=== PATIENT | male | born 1960 | race Caucasian/White ===

== ENCOUNTER 2017-07-26 21:17 | Inpatient (IN) | payer OTHER ==
[2017-07-26 21:28] VITALS: BMI 27.4
--- NOTE | 2017-07-26 22:52 | HP ---
COWS - Scale Resting Pulse: 1= [place] 81-100 Sweatin=Flushed/Facial Moisture Restless Observation: 5= Unable to Sit Still Pupil Size: 1= Pupils >than Normal Bone or Joint Aches: 4=Acute Joint/Muscle Pain Runny Nose/ Eye Tearin= Nasal Congestion GI Upset > 30mins: 2= Nausea/Diarrhea Tremor Observation: 2= Slight Tremor Visible Yawning Observation: 0= None Anxiety or Irritability: 4=Extreme Anxiety Goose Flesh Skin: 0=Smooth Skin COWS Score: 22 CIWA Score - CIWA Score Nausea/Vomitin-Mild Nausea/No Vomiting Muscle Tremors: 4-Moderate,w/Arms Extend Anxiety: 4-Mod. Anxious/Guarded Agitation: 4-Moderately Restless Paroxysmal Sweats: 3 Orientation: 1-Uncertain about Date Tacttile Disturbances: 3-Moderate Itch/Numb/Burn Auditory Disturbances: 0-None Visual Disturbances: 0-None Headache: 2-Mild CIWA-Ar Total Score: 22 Admission ROS BHS - HPI Chief Complaint: C/O WITHDRAWAL SX'S. SEEKING DETOX TXMENT FOR ALCOHOL AND OPIOID DEPENDENCE. Allergies/Adverse Reactions: Allergies Allergy/AdvReac Type Severity Reaction Status Date / Time No Known Allergies Allergy Verified 07/26/17 22:07 History of Present Illness: 56 Y.O. MALE WITH POLYSUBTANCE ABUSE HERE FOR DETOX TXMENT. HERE DETOX TXMENT. REFERR[place] HE IS LAO SPEAKING. LABOR MEDIATOR USED FOR INTERVIEW. HE IS A POOR HISTORIAN. 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 DENIES ANY RECENT DETOX TXMENT. Exam Limitations: No Limitations - Ebola screening Have you traveled outside of the country in the last 21 days: No Have you had contact with anyone from an Ebola affected area: No Have you been sick,other than usual withdrawal symptoms: No Do you have a fever: No - Review of Systems Constitutional: Chills, Loss of Appetite, Malaise, Night Sweats, Changes in sleep EENT: reports: Nose Congestion Respiratory: reports: No Symptoms reported Cardiac: reports: No Symptoms Reported GI: reports: Poor Appetite : reports: No Symptoms Reported Musculoskeletal: reports: Joint Pain, Other (AMBULATES WITH CANE) Neuro: reports: Tremors, Other (CHRONIC ULCER TO LLE) Endocrine: reports: Other (HX/O DM) Hematology: reports: No Symptoms Reported Psychiatric: reports: Agitated, Anxious Other Systems: Reviewed and Negative Patient History - Patient Medical History Hx Anemia: No Hx Asthma: No Hx Chronic Obstructive Pulmonary Disease (COPD): No Hx Cancer: No Hx Cardiac Disorders: No Hx Congestive Heart Failure: No Hx Hypertension: No Hx Hypercholesterolemia: No Hx Pacemaker: No HX Cerebrovascular Accident: No Hx Seizures: No Hx Dementia: No Hx Diabetes: Yes (DOES NOT RECALL) Hx Gastrointestinal Disorders: No Hx Liver Disease: No Hx Genitourinary Disorders: No Hx Sexually Transmitted Disorders: No Hx Renal Disease (ESRD): No Hx Thyroid Disease: No Hx Human Immunodeficiency Virus (HIV): No Hx Hepatitis C: Yes (NO TXMENT) Hx Depression: Yes Hx Suicide Attempt: Yes (1 MONTH AGO .tried to shoot himself but failed. PRESENTLY DENIES SI/HI) Hx Schizophrenia: No Other Medical History: LLE DM ULCER - Patient Surgical History Past Surgical History: Yes Hx Neurologic Surgery: No Hx Cataract Extraction: No Hx Cardiac Surgery: No Hx Lung Surgery: No Hx Breast Surgery: No Hx Breast Biopsy: No Hx Abdominal Surgery: Yes (UMBLICAL HERNIA REPAIR) Hx Appendectomy: No Hx Cholecystectomy: No Hx Genitourinary Surgery: No Hx Section: No Hx Orthopedic Surgery: No Anesthesia Reaction: No - PPD History Previous Implant?: Yes Documented Results: Negative w/o proof Implanted On Prior R Admission?: No PPD to be Administered?: Yes - Smoking Cessation Smoking history: Current every day smoker Have you smoked in the past 12 months: Yes Aproximately how many cigarettes per day: 20 Cigars Per Day: 0 Hx Chewing Tobacco Use: No Initiated information on smoking cessation: Yes 'Breaking Loose' booklet given: 07/26/17 - Substance & Tx. History Hx Alcohol Use: Yes Hx Substance Use: Yes Substance Use Type: Alcohol, Cocaine, Marijuana, Opiates Hx Substance Use Treatment: Yes ([facility]) - Substances Abused Heroin Route: Inhalation Frequency: Daily Amount used: 12 BAGS Age of first use: 13 Date of Last Use: 07/26/17 Alcohol Route: Oral Frequency: Daily Amount used: 5 BEERS Age of first use: 13 Date of Last Use: 07/26/17 Cocaine Route: Injection Frequency: Daily Amount used: 12 BAGS Age of first use: 13 Date of Last Use: 12/06/17 Family Disease History - Family Disease History Family History: Unable to Obtain Admission Physical Exam [facility] - Vital Signs Vital Signs: Vital Signs - 24 hr 07/26/17 21:27 Temperature 98.7 F Pulse Rate 98 H Respiratory 18 Rate Blood Pressure 150/93 - Physical General Appearance: Yes: Disheveled, Tremorous, Irritable, Other (`UNKEPT) HEENTM: Yes: EOMI, Normocephalic, MARRY, Pharynx Normal, Other (MISSING TEETH/ POOR DENTITION) Respiratory: Yes: Chest Non-Tender, Lungs Clear, Normal Breath Sounds, No Respiratory Distress, No Accessory Muscle Use Neck: Yes: No masses,lesions,Nodules, Supple, Trachea in good position Breast: Yes: Breast Exam Deferred Cardiology: Yes: Regular Rhythm, Regular Rate, S1, S2 Abdominal: Yes: Normal Bowel Sounds, Non Tender, Soft Genitourinary: Yes: Within Normal Limits Back: Yes: Normal Inspection Musculoskeletal: Yes: full range of Motion, Gait Steady, Back pain Extremities: Yes: Normal Range of Motion, Non-Tender, Tremors, Other (SOLIED) Neurological: Yes: tail end rider II-XII NML intact, Fully Oriented, Alert, Motor Strength 5/5 Integumentary: Yes: Dry, Pitting Edema, Track Shaw (AND OLD ABSCESS TO BOTH ARMS), Other (BLE EDEMA WITH VASCULAR CHANGES DISCOLORATION. LLE WITH DM CHRONIC ULCER GRANULATING TISSUE NOTED) Lymphatic: Yes: Within Normal Limits - Diagnostic (1) Opioid dependence with withdrawal Current Visit: Yes Status: Chronic (2) Alcohol dependence with uncomplicated withdrawal Current Visit: Yes Status: Chronic (3) Cocaine abuse, uncomplicated Current Visit: Yes Status: Chronic (4) Nicotine dependence Current Visit: Yes Status: Chronic Qualifiers: Nicotine product type: cigarettes Substance use status: uncomplicated Qualified Code(s): F17.210 - Nicotine dependence, cigarettes, uncomplicated (5) Diabetes Current Visit: Yes Status: Chronic Qualifiers: Diabetes mellitus type: type 2 (6) Diabetic ulcer of left ankle Current Visit: Yes Status: Chronic Cleared for Admission [facility] - Detox or Rehab [facility] Level of Care: Medically Managed Detox Regimen/Protocol: Methadone/Librium [facility] Breath Alcohol Content Breath Alcohol Content: 0 Urine Drug Screen - Results Drug Screen Negative: No Urine Drug Screen Results: THC-Marijuana, YOUNG-Cocaine, OPI-Opiates
[2017-07-26] MEDS ORDERED: METHADONE HCL 10 MG TABLET (FOR DETOX USE ONLY) PO ONE ×2 (23:00→23:10)
[2017-07-26] MEDS ORDERED: MAG HYDROX/AL HYDROX/SIMETH 30 ML UNIT-DOSE CUP PO PRN (23:10)
[2017-07-26] MEDS ORDERED: MAGNESIUM HYDROX 2400MG/30ML ORAL SUSPENSION 30 ML CUP PO PRN (23:10)
[2017-07-26] MEDS ORDERED: guaiFENesin/D-METHORPHAN HB 10 ML UNIT-DOSE CUPS PO PRN (23:10)
[2017-07-26] MEDS ORDERED: IBUPROFEN 400 MG TABLET (FP) PO PRN (23:10)
[2017-07-26] MEDS ORDERED: MAGNESIUM CITRATE 300 ML BOTTLE PO PRN (23:10)
[2017-07-26] MEDS ORDERED: MENTHOL/PHENOL 1 EACH UD MM PRN (23:10)
[2017-07-26] MEDS ORDERED: LOPERAMIDE HCL 2 MG CAPSULE PO PRN (23:10)
[2017-07-26] MEDS ORDERED: P-EPHED 60MG/TRIPROLIDI 2.5MG TABLET PO PRN (23:10)
[2017-07-26] MEDS ORDERED: NICOTINE POLACRILEX 2 MG GUM BC PRN (23:10)
[2017-07-27] MEDS ORDERED: METHADONE HCL 10 MG TABLET (FOR DETOX USE ONLY) PO ONE ×3 (00:11→23:00)
[2017-07-27] MEDS: chlordiazePOXIDE HCL 25 MG CAPSULE PO PRN (01:04)
[2017-07-27] MEDS: chlordiazePOXIDE HCL 25 MG CAPSULE PO SCH ×5 (01:15→22:44)
[2017-07-27] MEDS: INSULIN SLIDING SCALE (NOVOLOG) 1 VIAL SQ SCH ×4 (08:07→22:00)
--- NOTE | 2017-07-27 09:44 | CONSULT ---
[facility] Psychiatric Consult - Data Date of interview: 07/27/17 Admission source: [facility] Identifying data: Pt is a 56 year old male. Pt. is unemployed and homless. This is patient's first admission to [facility]. Pt. admitted to for detox from heroin, cocaine, alcohol, and marijuana dependence. Substance Abuse History: Heroin- First used: 13 years old Usage: 12 bags daily Last used:07/26/2017. Cocaine- First used: 13 years old. Usage: 12 bags daily Last used: 07/26/2017. Marijuana- First used: 13 years old. Usage- Couple bags last used: 07/26/2017. Alcohol- First used: 13 years old. Usage- 5 beers daily. Last used 07/26/2017 Medical History: Diabetes Psychiatric History: Pt. denies a psychiatric history. Pt. reports one suicide attempt last month in which he attempted to shoot himself but states he was unsuccessful. Pt. currently denies sucidial and homicidal ideation. Physical/Sexual Abuse/Trauma History: Pt. denies. Mental Status Exam - Mental Status Exam Alert and Oriented to: Person Cognitive Function: Fair Patient Appearance: Well Groomed Mood: Expansive Affect: Mood Congruent Patient Behavior: Talkative, Cooperative Speech Pattern: Clear, Pressured Voice Loudness: Normal Thought Process: Goal Oriented Thought Disorder: Not Present Hallucinations: Denies Suicidal Ideation: Denies Homicidal Ideation: Denies Insight/Judgement: Fair Sleep: Poorly Appetite: Fair Muscle strength/Tone: Normal Gait/Station: Other (Pt. is currently using a cane to ambulate on unit.) Psychiatric Findings - Problem List ([place] 1, 2,3) (1) Alcohol dependence with uncomplicated withdrawal Current Visit: Yes Status: Acute (2) Cocaine abuse, uncomplicated Current Visit: Yes Status: Acute (3) Nicotine dependence Current Visit: Yes Status: Chronic Qualifiers: Nicotine product type: cigarettes Substance use status: uncomplicated Qualified Code(s): F17.210 - Nicotine dependence, cigarettes, uncomplicated (4) Opioid dependence with withdrawal Current Visit: Yes Status: Acute - Initial Treatment Plan Initial Treatment Plan: Psychoeducation provided. Detoxification in progress. Psychotrophic medications not required at this time.
[2017-07-27] MEDS ORDERED: METHADONE HCL 10 MG TABLET (FOR DETOX USE ONLY) PO SCH (10:00)
[2017-07-27 10:05] LABS: HEMATOCRIT 28.9 % (35.4-49); HEMOGLOBIN 9.5 GM/dL (11.7-16.9); MCH 29.6 pg (25.7-33.7); MEAN CELL VOLUME 89.8 fl (80-96); MEAN PLT VOLUME 9.6 fl (7.5-11.1); PLATELET COUNT 171 K/MM3 (134-434); RBC 3.22 M/mm3 (4.00-5.60); RDW 16.7 % (11.9-15.9)
[2017-07-27 10:21] LABS: ALBUMIN 2.8 g/dl (3.4-5.0); ANION GAP 9 (8-16); BLOOD UREA NITROGEN 29 mg/dL (7-18); CALCIUM 8.6 mg/dL (8.5-10.1); CHLORIDE 107 mmol/L (98-107); CO2 24 mmol/L (21-32); GLUCOSE,RANDOM 102 mg/dL (74-106); POTASSIUM 3.8 mmol/L (3.5-5.1); SODIUM 140 mmol/L (136-145)
[2017-07-27 10:26] LABS: ALK PHOS 99 U/L (45-117); BILIRUBIN,TOTAL 0.5 mg/dL (0.2-1.0); CREATININE 1.3 mg/dL (0.7-1.3); SGOT/AST 52 U/L (15-37); SGPT/ALT 46 U/L (12-78); TOT PROT 7.8 g/dl (6.4-8.2)
[2017-07-27] MEDS: PRENATAL VITAMINS W/ FOLIC ACID TABLET (FP) PO SCH (10:57)
[2017-07-27] MEDS: NICOTINE 14 MG/24 HOURS TOPICAL PATCH TD SCH (10:58)
--- NOTE | 2017-07-27 11:43 | EKG ---
Test Reason : Blood Pressure : / mmHG Vent. Rate : 087 BPM Atrial Rate : 087 BPM P-R Int : 118 ms QRS Dur : 082 ms QT Int : 362 ms P-R-T Axes : 013 020 022 degrees QTc Int : 435 ms SINUS RHYTHM WITH OCCASIONAL PREMATURE VENTRICULAR COMPLEXES OTHERWISE NORMAL ECG NO PREVIOUS ECGS AVAILABLE Confirmed by JAMILA PEÑA, KELLY ([id number]) on 07/27/2017 11:42:50 AM Referred By: Confirmed By:KELLY MARINO MD
[2017-07-27] MEDS ORDERED: PNEUMOCOCCAL 23 VACCINE 0.5 ML VIAL IM ONE (12:00)
[2017-07-27] MEDS ORDERED: FLU VACCINE QUAD 60 MCG/0.5 ML (MDV 17-18) IM ONE (12:00)
[2017-07-27] MEDS ORDERED: PNEUMOC 13-VAL CONJ-DIP CRM/PF 0.5 ML DISP.SYRIN IM ONE (12:00)
[2017-07-27] MEDS: BACITRACIN 0.9 GM PACKET TP SCH ×2 (14:24→21:51)
[2017-07-27] MEDS: AMMONIUM LACTATE 12% LOTION 225 GM BOTTLE TP SCH ×2 (14:25→21:50)
[2017-07-27] MEDS: SULFAMETHOXAZOLE/TRIMETHOPRIM 800MG/160MG D.S. TABLET PO SCH ×2 (14:25→21:51)
--- NOTE | 2017-07-27 16:13 | PN ---
[facility] CIWA - CIWA Score Nausea/Vomitin-No Nausea/No Vomiting Muscle Tremors: 4-Moderate,w/Arms Extend Anxiety: 5 Agitation: 4-Moderately Restless Paroxysmal Sweats: 2 Orientation: 2-Disoriented Date<2 days Tacttile Disturbances: 2-Mild Itch/Numbness/Burn Auditory Disturbances: 0-None Visual Disturbances: 0-None Headache: 0-None Present CIWA-Ar Total Score: 19 BHS COWS - Scale Resting Pulse: 1= [place] 81-100 Sweatin= Chills/Flushing Restless Observation: 1= Difficult to Sit Still Pupil Size: 0= Normal to Room Light Bone or Joint Aches: 2= Severe Diffuse Aches Runny Nose/ Eye Tearin= None GI Upset > 30mins: 0= None Tremor Observation of Outstretched Hands: 2= Slight Tremor Visible Yawning Observation: 1= 1-2x During Session Anxiety or Irritability: 2=Irritable/Anxious Goose Flesh Skin: 3=Piloerection COWS Score: 13 S 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 (SOAP) Subjective: Anxious, Body Aches, Sweating, Interrupted Sleep. Objective: PT. A & O X 2 (UNCERTAIN ABOUT CURRENT DAY / DATE). PT. OBSERVED AMBULATING ON UNIT. NO ACUTE DISTRESS. PT. DENIES CHEST PAIN. 07/27/17 16:09 Vital Signs Temperature 97.6 F 07/27/17 13:18 Pulse Rate 95 H 07/27/17 13:18 Respiratory Rate 20 07/27/17 13:18 Blood Pressure 139/99 07/27/17 13:18 O2 Sat by Pulse Oximetry (%) Laboratory Tests 07/26/17 07/27/17 07/27/17 23:30 06:25 07:00 WBC 6.0 RBC 3.22 L Hgb 9.5 L Hct 28.9 L MCV 89.8 MCH 29.6 MCHC 33.0 RDW 16.7 H Plt Count 171 MPV 9.6 Sodium Potassium Chloride Carbon Dioxide Anion Gap BUN Creatinine Creat Clearance w eGFR POC Glucometer 149 109 Random Glucose Calcium Total Bilirubin AST ALT Alkaline Phosphatase Total Protein Albumin RPR Titer HIV 1&2 Antibody Screen HIV P24 Antigen 07/27/17 07/27/17 07/27/17 07:00 07:00 09:00 WBC RBC Hgb Hct MCV MCH MCHC RDW Plt Count MPV Sodium 140 Potassium 3.8 Chloride 107 Carbon Dioxide 24 Anion Gap 9 BUN 29 H Creatinine 1.3 Creat Clearance w eGFR 57.53 POC Glucometer Random Glucose 102 Calcium 8.6 Total Bilirubin 0.5 AST 52 H ALT 46 Alkaline Phosphatase 99 Total Protein 7.8 Albumin 2.8 L RPR Titer Nonreactive HIV 1&2 Antibody Screen Negative HIV P24 Antigen Negative 07/27/17 11:43 WBC RBC Hgb Hct MCV MCH MCHC RDW Plt Count MPV Sodium Potassium Chloride Carbon Dioxide Anion Gap BUN Creatinine Creat Clearance w eGFR POC Glucometer 155 Random Glucose Calcium Total Bilirubin AST ALT Alkaline Phosphatase Total Protein Albumin RPR Titer HIV 1&2 Antibody Screen HIV P24 Antigen LABS NOTED. Assessment: 07/27/17 16:13 WITHDRAWAL SYMPTOMS. Plan: CONTINUE DETOX. BMP ON 07/29/2017 FOR ABNORMAL ADMISSION RENAL LAB VALUES. D/C MAGNESIUM-CONTAINING MEDS. AND IBUPROFEN. AMLODIPINE, 5 MG PO DAILY FOR ELEVATED BP. BACTRIM DS, PO BID FOR ABSCESSES ON ARMS AND FOR WOUND ON LEG. SALINE RINSE FOLLOWED BY APPLICATION OF BACITRACIN BID TO ULCER ON LEFT LOWER LEG.
[2017-07-27 16:52] LABS: URINE APPEARANCE CLEAR; URINE BILIRUBIN NEGATIVE (NEGATIVE); URINE BLOOD NEGATIVE (NEGATIVE); URINE COLOR YELLOW; URINE GLUCOSE (UA) NEGATIVE (NEGATIVE); URINE KETONE NEGATIVE (NEGATIVE); URINE LEUK ESTERASE NEGATIVE (NEGATIVE); URINE NITRITE NEGATIVE (NEGATIVE); URINE PROTEIN NEGATIVE (NEGATIVE); URINE UROBILINOGEN NEGATIVE mg/dL (0.2-1.0)
[2017-07-27] MEDS: amLODIPine BESYLATE 5 MG TABLET (FP) PO SCH (17:25)
[2017-07-27] MEDS: THIAMINE HCL 100 MG TABLET (FP) PO SCH (21:49)
[2017-07-27] MEDS: CYCLOBENZAPRINE HCL 5 MG TABLET PO PRN (21:50)
[2017-07-27] MEDS: NAPROXEN 500 MG TABLET (FP) PO SCH (22:43)
[2017-07-28] MEDS: chlordiazePOXIDE HCL 25 MG CAPSULE PO PRN (01:08)
[2017-07-28] MEDS: chlordiazePOXIDE HCL 25 MG CAPSULE PO SCH ×3 (05:14→17:32)
[2017-07-28] MEDS: INSULIN SLIDING SCALE (NOVOLOG) 1 VIAL SQ SCH ×4 (07:19→22:18)
[2017-07-28] MEDS ORDERED: METHADONE HCL 5 MG TABLET (FOR DETOX USE ONLY) PO SCH (10:00)
[2017-07-28] MEDS ORDERED: METHADONE HCL 10 MG TABLET (FOR DETOX USE ONLY) PO ONE (10:00)
[2017-07-28] MEDS: SULFAMETHOXAZOLE/TRIMETHOPRIM 800MG/160MG D.S. TABLET PO SCH ×2 (10:22→22:17)
[2017-07-28] MEDS: NAPROXEN 500 MG TABLET (FP) PO SCH ×2 (10:22→22:17)
[2017-07-28] MEDS: amLODIPine BESYLATE 5 MG TABLET (FP) PO SCH (10:22)
[2017-07-28] MEDS: BACITRACIN 0.9 GM PACKET TP SCH ×2 (10:22→22:17)
[2017-07-28] MEDS: AMMONIUM LACTATE 12% LOTION 225 GM BOTTLE TP SCH ×2 (10:23→22:00)
[2017-07-28] MEDS: PRENATAL VITAMINS W/ FOLIC ACID TABLET (FP) PO SCH (11:27)
[2017-07-28] MEDS: NICOTINE 14 MG/24 HOURS TOPICAL PATCH TD SCH (11:27)
--- NOTE | 2017-07-28 15:42 | PN ---
[facility] CIWA - CIWA Score Nausea/Vomitin-No Nausea/No Vomiting Muscle Tremors: 4-Moderate,w/Arms Extend Anxiety: 4-Mod. Anxious/Guarded Agitation: 3 Paroxysmal Sweats: 3 Orientation: 2-Disoriented Date<2 days Tacttile Disturbances: 1-Very Mild Itch/Numbness Auditory Disturbances: 0-None Visual Disturbances: 0-None Headache: 0-None Present CIWA-Ar Total Score: 17 BHS COWS - Scale Resting Pulse: 2= [place] 101-120 Sweatin= Chills/Flushing Restless Observation: 1= Difficult to Sit Still Pupil Size: 0= Normal to Room Light Bone or Joint Aches: 2= Severe Diffuse Aches Runny Nose/ Eye Tearin= None GI Upset > 30mins: 0= None Tremor Observation of Outstretched Hands: 2= Slight Tremor Visible Yawning Observation: 1= 1-2x During Session Anxiety or Irritability: 2=Irritable/Anxious Goose Flesh Skin: 3=Piloerection COWS Score: 14 [facility] 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 (SOAP) Subjective: Tremors, Interrupted Sleep, Body Aches, Hot / Cold Sensations. Objective: PT. A & O X 2 (UNCERTAIN ABOUT CURRENT DAY/ DATE). PT. OBSERVED AMBULATING ON UNIT WITH ASSISTANCE OF A CANE. NO ACUTE DISTRESS. 07/28/17 15:38 Vital Signs Temperature 97.4 F L 07/28/17 13:38 Pulse Rate 101 H 07/28/17 13:38 Respiratory Rate 20 07/28/17 13:38 Blood Pressure 143/91 07/28/17 13:38 O2 Sat by Pulse Oximetry (%) Vital Signs Temperature 97.4 F L 07/28/17 13:38 Pulse Rate 101 H 07/28/17 13:38 Respiratory Rate 20 07/28/17 13:38 Blood Pressure 143/91 07/28/17 13:38 O2 Sat by Pulse Oximetry (%) Laboratory Tests 07/26/17 07/26/17 07/27/17 16:35 23:30 06:25 WBC RBC Hgb Hct MCV MCH MCHC RDW Plt Count MPV Sodium Potassium Chloride Carbon Dioxide Anion Gap BUN Creatinine Creat Clearance w eGFR POC Glucometer 149 109 Random Glucose Calcium Total Bilirubin AST ALT Alkaline Phosphatase Total Protein Albumin Urine Color Yellow Urine Appearance Clear Urine pH 5.0 Ur Specific [place] 1.021 Urine Protein Negative Urine Glucose (UA) Negative Urine Ketones Negative Urine Blood Negative Urine Nitrite Negative Urine Bilirubin Negative Urine Urobilinogen Negative Ur Leukocyte Esterase Negative RPR Titer HIV 1&2 Antibody Screen HIV P24 Antigen 07/27/17 07/27/17 07/27/17 07:00 07:00 07:00 WBC 6.0 RBC 3.22 L Hgb 9.5 L Hct 28.9 L MCV 89.8 MCH 29.6 MCHC 33.0 RDW 16.7 H Plt Count 171 MPV 9.6 Sodium 140 Potassium 3.8 Chloride 107 Carbon Dioxide 24 Anion Gap 9 BUN 29 H Creatinine 1.3 Creat Clearance w eGFR 57.53 POC Glucometer Random Glucose 102 Calcium 8.6 Total Bilirubin 0.5 AST 52 H ALT 46 Alkaline Phosphatase 99 Total Protein 7.8 Albumin 2.8 L Urine Color Urine Appearance Urine pH Ur Specific [place] Urine Protein Urine Glucose (UA) Urine Ketones Urine Blood Urine Nitrite Urine Bilirubin Urine Urobilinogen Ur Leukocyte Esterase RPR Titer Nonreactive HIV 1&2 Antibody Screen HIV P24 Antigen 07/27/17 07/27/17 07/27/17 09:00 11:43 16:23 WBC RBC Hgb Hct MCV MCH MCHC RDW Plt Count MPV Sodium Potassium Chloride Carbon Dioxide Anion Gap BUN Creatinine Creat Clearance w eGFR POC Glucometer 155 101 Random Glucose Calcium Total Bilirubin AST ALT Alkaline Phosphatase Total Protein Albumin Urine Color Urine Appearance Urine pH Ur Specific [place] Urine Protein Urine Glucose (UA) Urine Ketones Urine Blood Urine Nitrite Urine Bilirubin Urine Urobilinogen Ur Leukocyte Esterase RPR Titer HIV 1&2 Antibody Screen Negative HIV P24 Antigen Negative 07/27/17 07/28/17 07/28/17 20:43 05:14 12:00 WBC RBC Hgb Hct MCV MCH MCHC RDW Plt Count MPV Sodium Potassium Chloride Carbon Dioxide Anion Gap BUN Creatinine Creat Clearance w eGFR POC Glucometer 155 108 144 Random Glucose Calcium Total Bilirubin AST ALT Alkaline Phosphatase Total Protein Albumin Urine Color Urine Appearance Urine pH Ur Specific [place] Urine Protein Urine Glucose (UA) Urine Ketones Urine Blood Urine Nitrite Urine Bilirubin Urine Urobilinogen Ur Leukocyte Esterase RPR Titer HIV 1&2 Antibody Screen HIV P24 Antigen LABS NOTED. Assessment: 07/28/17 15:39 WITHDRAWAL SYMPTOMS. Plan: CONTINUE DETOX. INCREASE AMLODIPINE DAILY DOSE TO 10 MG PO DAILY.
[2017-07-28] MEDS ORDERED: amLODIPine BESYLATE 5 MG TABLET (FP) PO ONE (17:00)
[2017-07-28] MEDS: ACETAMINOPHEN 325 MG TABLET (FP) PO PRN (18:18)
[2017-07-28] MEDS: TOLNAFTATE 1% CREAM 15 GM TUBE TP SCH (22:17)
[2017-07-28] MEDS: CYCLOBENZAPRINE HCL 5 MG TABLET PO PRN (22:17)
[2017-07-28] MEDS: chlordiazePOXIDE 5 MG CAPSULE PO SCH (22:17)
[2017-07-28] MEDS: THIAMINE HCL 100 MG TABLET (FP) PO SCH (22:18)
[2017-07-29] MEDS: ACETAMINOPHEN 325 MG TABLET (FP) PO PRN (00:55)
[2017-07-29] MEDS: chlordiazePOXIDE HCL 25 MG CAPSULE PO PRN (00:56)
[2017-07-29] MEDS: chlordiazePOXIDE 5 MG CAPSULE PO SCH ×3 (06:01→17:53)
[2017-07-29] MEDS: INSULIN SLIDING SCALE (NOVOLOG) 1 VIAL SQ SCH ×4 (06:19→22:27)
--- NOTE | 2017-07-29 09:50 | PN ---
BHS 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 (SOAP) Subjective: Sweating, Tremors, Anxious. Objective: PT. A & O X 1 (UNCERTAIN ABOUT CURRENT DAY / DATE AND ABOUT CURRENT LOCATION). PT. OBSERVED AMBULATING ON UNIT. NO ACUTE DISTRESS. 07/29/17 09:46 Vital Signs Temperature 97 F L 07/29/17 06:22 Pulse Rate 155 H 07/29/17 06:22 Respiratory Rate 16 07/29/17 06:22 Blood Pressure 99/63 07/29/17 06:22 O2 Sat by Pulse Oximetry (%) Laboratory Tests 07/26/17 07/26/17 07/27/17 16:35 23:30 06:25 WBC RBC Hgb Hct MCV MCH MCHC RDW Plt Count MPV Sodium Potassium Chloride Carbon Dioxide Anion Gap BUN Creatinine Creat Clearance w eGFR POC Glucometer 149 109 Random Glucose Calcium Total Bilirubin AST ALT Alkaline Phosphatase Total Protein Albumin Urine Color Yellow Urine Appearance Clear Urine pH 5.[address] [place] 1.021 Urine Protein Negative Urine Glucose (UA) Negative Urine Ketones Negative Urine Blood Negative Urine Nitrite Negative Urine Bilirubin Negative Urine Urobilinogen Negative Ur Leukocyte Esterase Negative RPR Titer HIV 1&2 Antibody Screen HIV P24 Antigen 07/27/17 07/27/17 07/27/17 07:00 07:00 07:00 WBC 6.0 RBC 3.22 L Hgb 9.5 L Hct 28.9 L MCV 89.8 MCH 29.6 MCHC 33.0 RDW 16.7 H Plt Count 171 MPV 9.6 Sodium 140 Potassium 3.8 Chloride 107 Carbon Dioxide 24 Anion Gap 9 BUN 29 H Creatinine 1.3 Creat Clearance w eGFR 57.53 POC Glucometer Random Glucose 102 Calcium 8.6 Total Bilirubin 0.5 AST 52 H ALT 46 Alkaline Phosphatase 99 Total Protein 7.8 Albumin 2.8 L Urine Color Urine Appearance Urine pH Ur Specific [address] [place] Urine Protein Urine Glucose (UA) Urine Ketones Urine Blood Urine Nitrite Urine Bilirubin Urine Urobilinogen Ur Leukocyte Esterase RPR Titer Nonreactive HIV 1&2 Antibody Screen HIV P24 Antigen 07/27/17 07/27/17 07/27/17 09:00 11:43 16:23 WBC RBC Hgb Hct MCV MCH MCHC RDW Plt Count MPV Sodium Potassium Chloride Carbon Dioxide Anion Gap BUN Creatinine Creat Clearance w eGFR POC Glucometer 155 101 Random Glucose Calcium Total Bilirubin AST ALT Alkaline Phosphatase Total Protein Albumin Urine Color Urine Appearance Urine pH Ur Specific [address] [place] Urine Protein Urine Glucose (UA) Urine Ketones Urine Blood Urine Nitrite Urine Bilirubin Urine Urobilinogen Ur Leukocyte Esterase RPR Titer HIV 1&2 Antibody Screen Negative HIV P24 Antigen Negative 07/27/17 07/28/17 07/28/17 20:43 05:14 12:00 WBC RBC Hgb Hct MCV MCH MCHC RDW Plt Count MPV Sodium Potassium Chloride Carbon Dioxide Anion Gap BUN Creatinine Creat Clearance w eGFR POC Glucometer 155 108 144 Random Glucose Calcium Total Bilirubin AST ALT Alkaline Phosphatase Total Protein Albumin Urine Color Urine Appearance Urine pH Ur Specific [address] [place] Urine Protein Urine Glucose (UA) Urine Ketones Urine Blood Urine Nitrite Urine Bilirubin Urine Urobilinogen Ur Leukocyte Esterase RPR Titer HIV 1&2 Antibody Screen HIV P24 Antigen 07/28/17 07/29/17 16:23 06:06 WBC RBC Hgb Hct MCV MCH MCHC RDW Plt Count MPV Sodium Potassium Chloride Carbon Dioxide Anion Gap BUN Creatinine Creat Clearance w eGFR POC Glucometer 97 97 Random Glucose Calcium Total Bilirubin AST ALT Alkaline Phosphatase Total Protein Albumin Urine Color Urine Appearance Urine pH Ur Specific [address] [place] Urine Protein Urine Glucose (UA) Urine Ketones Urine Blood Urine Nitrite Urine Bilirubin Urine Urobilinogen Ur Leukocyte Esterase RPR Titer HIV 1&2 Antibody Screen HIV P24 Antigen LABS NOTED. RESULTS OF BMP PENDING. 07/29/17 09:49 Assessment: 07/29/17 09:47 WITHDRAWAL SYMPTOMS. ANEMIA. 07/29/17 09:49 Plan: CONTINUE DETOX.
[2017-07-29 09:54] LABS: ANION GAP 9 (8-16); BLOOD UREA NITROGEN 30 mg/dL (7-18); CHLORIDE 107 mmol/L (98-107); CO2 23 mmol/L (21-32); GLUCOSE,RANDOM 83 mg/dL (74-106); POTASSIUM 4.5 mmol/L (3.5-5.1); SODIUM 139 mmol/L (136-145)
[2017-07-29 09:56] LABS: CREATININE 1.3 mg/dL (0.7-1.3)
[2017-07-29] MEDS ORDERED: METHADONE HCL 5 MG TABLET (FOR DETOX USE ONLY) PO ONE (10:00)
[2017-07-29] MEDS: PRENATAL VITAMINS W/ FOLIC ACID TABLET (FP) PO SCH (10:04)
[2017-07-29] MEDS: NAPROXEN 500 MG TABLET (FP) PO SCH ×2 (10:04→22:28)
[2017-07-29] MEDS: SULFAMETHOXAZOLE/TRIMETHOPRIM 800MG/160MG D.S. TABLET PO SCH ×2 (10:04→22:28)
[2017-07-29] MEDS: BACITRACIN 0.9 GM PACKET TP SCH ×2 (10:07→22:26)
[2017-07-29] MEDS: amLODIPine BESYLATE 10 MG TABLET (FP) PO SCH (10:07)
[2017-07-29] MEDS: NICOTINE 14 MG/24 HOURS TOPICAL PATCH TD SCH (10:07)
[2017-07-29] MEDS: AMMONIUM LACTATE 12% LOTION 225 GM BOTTLE TP SCH ×2 (10:07→22:28)
[2017-07-29] MEDS: TOLNAFTATE 1% CREAM 15 GM TUBE TP SCH ×2 (10:07→22:26)
--- NOTE | 2017-07-29 10:11 | PN ---
[facility] 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 Note: Patient just [facility] and reported that he fell in room during the night (around 2:00 - 3:00 AM). According to patient, he did not call out for help or go to [facility] to request help. He was able to get himself back into bed and then went back to sleep. At this time, patient indicates that he he the left side of his head (posterior to left ear) on the side of his bed. Patient denies LOC after fall. Patient denies injury to any other aspect of his body. No swelling, erythema, or unusual discharge noted on patient's head. Pt. A & O X 1 (Uncertain about Day / Date and about Current Location; NOTE: Patient has been uncertain about current Day /daTe and about current location since arriving on unit a few days ago). Patient observed ambulating on unit unassisted. Patient does not appear confused of lethargic. [facility] Fall Protocol # [address] implemented[address] Report [address] Nina Celaya at [facility] ER. Patient to be taken via ambulance to [facility] ER for further evaluation and for CT Scan of Head. Nadja Harrison NP
[2017-07-29] MEDS: THIAMINE HCL 100 MG TABLET (FP) PO SCH (22:26)
[2017-07-29] MEDS: chlordiazePOXIDE HCL 10 MG CAPSULE PO SCH (22:27)
[2017-07-30] MEDS: ACETAMINOPHEN 325 MG TABLET (FP) PO PRN ×2 (03:22→11:01)
[2017-07-30] MEDS: CYCLOBENZAPRINE HCL 5 MG TABLET PO PRN ×2 (03:22→20:02)
[2017-07-30] MEDS: chlordiazePOXIDE HCL 10 MG CAPSULE PO SCH ×3 (06:07→17:24)
[2017-07-30] MEDS: INSULIN SLIDING SCALE (NOVOLOG) 1 VIAL SQ SCH ×4 (06:57→22:07)
[2017-07-30] MEDS ORDERED: METHADONE HCL 5 MG TABLET (FOR DETOX USE ONLY) PO ONE (10:00)
[2017-07-30] MEDS ORDERED: METHADONE HCL 10 MG TABLET (FOR DETOX USE ONLY) PO SCH (10:00)
[2017-07-30] MEDS: NAPROXEN 500 MG TABLET (FP) PO SCH ×2 (10:19→22:04)
[2017-07-30] MEDS: amLODIPine BESYLATE 10 MG TABLET (FP) PO SCH (10:19)
[2017-07-30] MEDS: SULFAMETHOXAZOLE/TRIMETHOPRIM 800MG/160MG D.S. TABLET PO SCH ×2 (10:19→22:05)
[2017-07-30] MEDS: BACITRACIN 0.9 GM PACKET TP SCH ×2 (10:19→22:05)
[2017-07-30] MEDS: NICOTINE 14 MG/24 HOURS TOPICAL PATCH TD SCH (10:20)
[2017-07-30] MEDS: AMMONIUM LACTATE 12% LOTION 225 GM BOTTLE TP SCH ×2 (10:20→22:04)
[2017-07-30] MEDS: TOLNAFTATE 1% CREAM 15 GM TUBE TP SCH ×2 (11:03→22:04)
[2017-07-30] MEDS: PRENATAL VITAMINS W/ FOLIC ACID TABLET (FP) PO SCH (11:03)
--- NOTE | 2017-07-30 12:27 | PN ---
Psychiatric 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 Vital Signs: Vital Signs Period Temp Pulse Resp BP Sys/Jett Pulse Ox Last 24 Hr 96.5 F-97.7 F 74-83 18-20 99-123/60-85 Date of Session: 07/30/17 Chief Complaint:: "I'm hearing voices and wants to hurt myself" HPI: Patient is a 56 years old homeless male admitted to [facility] on 07/26/17 for detox for alcohol, opoid and cocane Current Medications: Active Medications Generic Name Dose Route Start Last Admin Trade Name Freq PRN Reason Stop Dose Admin Acetaminophen 650 mg 07/26/17 23:10 07/30/17 11:01 Tylenol - PO 650 mg Q4H PRN Administration FEVER OR PAIN Amlodipine Besylate 10 mg 07/29/17 10:00 07/30/17 10:19 Norvasc - PO 10 mg DAILY FRANCINE Administration Bacitracin 0.9 gm 07/27/17 12:45 07/30/17 10:19 Bacitracin - TP 0.9 gm BID FRANCINE Administration Chlordiazepoxide HCl 10 mg 07/29/17 23:00 07/30/17 10:19 Librium - PO 07/30/17 17:01 10 mg [id number] FRANCINE Administration Cyclobenzaprine HCl 5 mg 07/27/17 21:02 07/30/17 03:22 Cyclobenzaprine Hcl PO 5 mg TID PRN Administration leg pain Eucalyptus/Menthol/Phenol/Sorbitol 1 each 07/26/17 23:10 Cepastat Lozenge - MM Q4H PRN SORE THROAT Guaifenesin 10 ml 07/26/17 23:10 Robitussin Dm - PO Q6H PRN COUGH Insulin Aspart 1 vial 07/27/17 07:00 07/30/17 11:02 Novolog Vial Sliding Scale - SQ Not Given ACHS FRANCINE Protocol Lactic Acid 1 applic 07/27/17 12:00 07/30/17 10:20 Lac-Hydrin 12 TP 1 applic BID FRANCINE Administration Loperamide HCl 4 mg 07/26/17 23:10 Imodium - PO Q6H PRN DIARRHEA Methadone HCl 5 mg 08/01/17 06:00 Dolophine - PO 08/01/17 06:01 ONCE@0600 ONE Methadone HCl 10 mg 07/31/17 10:00 Dolophine - PO 07/31/17 10:01 ONCE ONE Naproxen 500 mg 07/27/17 22:00 07/30/17 10:19 Naprosyn - PO 500 mg BID FRANCINE Administration Nicotine 14 mg 07/27/17 10:00 07/30/17 10:20 Nicoderm Patch - TD Not Given DAILY FRANCINE Nicotine Polacrilex 2 mg 07/26/17 23:10 Nicorette Gum - BC Q2H PRN NICOTINE REPLACEMENT RX Multivit/Folic Acid/Iron 1 tab 07/27/17 10:00 07/30/17 11:03 Vitamins (Sjr) - PO 1 tab DAILY FRANCINE Administration Pseudoephedrine/Triprolidine 1 combo 07/26/17 23:10 Actifed - PO TID PRN NASAL CONGESTION Thiamine HCl 100 mg 07/27/17 22:00 07/29/17 22:26 Vitamin B1 - PO 100 mg HS FRANCINE Administration Tolnaftate 1 applic 07/28/17 22:00 07/30/17 11:03 Tinactin 1% Cream - TP 1 applic BID FRANCINE Administration Trimethoprim/Sulfamethoxazole 1 each 07/27/17 12:00 07/30/17 10:19 Bactrim Ds - PO 08/06/17 11:59 1 each BID FRANCINE Administration Medication(s) Change(s): Haldol 2 mg po stat then 2 mg po Q 6hrs prn for psychosis or agitation Provider note:: Requested to see patient by counselor to evaluate for suicidal ideations. He was seen by life sciences manager on 07/27/17 and reported that he attempted to shoot himslf last month but was unsuccesful. Patient seen in the office, he is yoruba speaking only, a [employer] acted as interpretor. Reports that he started hearing voices last night while working on a drawing. He said that the voices told to put the drawing aside and kill himself. Then he said he went to bed. He said he woke up in the middle to go to the bathroon. He said while in the bathroon, the voice told him to break the mirror and slashed his neck with a piece of glass. He told typewriter mechanic that he does hear the voice or feels suicidal at the present but felt that way earlier Mental Status Exam - Mental Status Exam Alert and Oriented to: Time (not oriented to time), Place (Not oriented to place ), Person Cognitive Function: Fair Patient Appearance: Well Groomed Mood: Depressed Affect: Constricted Patient Behavior: Cooperative Speech Pattern: Clear Voice Loudness: Normal Hallucinations: Denies (reports hearing voices last night telling him to kill himself, to brake the mirror and cut self with the glass) Suicidal Ideation: Current Homicidal Ideation: Denies Insight/Judgement: Poor Sleep: Poorly Appetite: Good Muscle strength/Tone: Normal Gait/Station: Other (Ambulated with a cane) Psychiatric Treatment Plan - Problem List (1) Psychotic disorder Current Visit: Yes (2) Malingerer Current Visit: Yes (3) Malingering Current Visit: Yes (4) Alcohol dependence with uncomplicated withdrawal Current Visit: Yes (5) Opioid dependence with withdrawal Current Visit: Yes (6) Diabetes Current Visit: Yes Qualifiers: Diabetes mellitus type: type 2 (7) Diabetic ulcer of left ankle Current Visit: Yes Initial treatment plan: 1) Place patient on 1:1for safety. 2) Hadol 2 mg + Cogentin 0.5 mg po stat then Haldol 2 mg + Cogentin 0.5 mg po Q 6hrs prn for psychosis.agitation. 3) reevaluate in the morning
[2017-07-30] MEDS ORDERED: HALOPERIDOL 2 MG TABLET PO ONE (12:55)
[2017-07-30] MEDS ORDERED: BENZTROPINE MESYLATE 0.5 MG TABLET (FP) PO ONE (12:55)
[2017-07-30] MEDS: HALOPERIDOL 1 MG TABLET (FP) PO PRN ×2 (15:14→22:05)
[2017-07-30] MEDS: BENZTROPINE MESYLATE 0.5 MG TABLET (FP) PO PRN ×2 (15:16→22:05)
--- NOTE | 2017-07-30 16:24 | PN ---
S 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 (SOAP) Subjective: Tremor, chills, interrupted sleep; noted with left foot cellulitis. As per staff nurse, patient seen by psychiatrist today and placed on one to one observation due to reported CAHKS. Objective: 07/30/17 16:19 Last Vital Signs Temp Pulse Resp BP Pulse Ox 96.7 F L 78 18 123/85 07/30/17 10:50 07/30/17 10:50 07/30/17 14:25 07/30/17 10:50 Left foot: swollen, erythemic with small ulcer at ankle (travel writer saw left foot when patient sat up in bed, right foot appears swollen but not visible to travel writer ) Laboratory Tests 07/26/17 07/26/17 07/27/17 16:35 23:30 06:25 WBC RBC Hgb Hct MCV MCH MCHC RDW Plt Count MPV Sodium Potassium Chloride Carbon Dioxide Anion Gap BUN Creatinine Creat Clearance w eGFR POC Glucometer 149 109 Random Glucose Calcium Total Bilirubin AST ALT Alkaline Phosphatase Total Protein Albumin Urine Color Yellow Urine Appearance Clear Urine pH 5.0 Ur Specific [place] 1.021 Urine Protein Negative Urine Glucose (UA) Negative Urine Ketones Negative Urine Blood Negative Urine Nitrite Negative Urine Bilirubin Negative Urine Urobilinogen Negative Ur Leukocyte Esterase Negative RPR Titer HIV 1&2 Antibody Screen HIV P24 Antigen 07/27/17 07/27/17 07/27/17 07:00 07:00 07:00 WBC 6.0 RBC 3.22 L Hgb 9.5 L Hct 28.9 L MCV 89.8 MCH 29.6 MCHC 33.0 RDW 16.7 H Plt Count 171 MPV 9.6 Sodium 140 Potassium 3.8 Chloride 107 Carbon Dioxide 24 Anion Gap 9 BUN 29 H Creatinine 1.3 Creat Clearance w eGFR 57.53 POC Glucometer Random Glucose 102 Calcium 8.6 Total Bilirubin 0.5 AST 52 H ALT 46 Alkaline Phosphatase 99 Total Protein 7.8 Albumin 2.8 L Urine Color Urine Appearance Urine pH Ur Specific [place] Urine Protein Urine Glucose (UA) Urine Ketones Urine Blood Urine Nitrite Urine Bilirubin Urine Urobilinogen Ur Leukocyte Esterase RPR Titer Nonreactive HIV 1&2 Antibody Screen HIV P24 Antigen 07/27/17 07/27/17 07/27/17 09:00 11:43 16:23 WBC RBC Hgb Hct MCV MCH MCHC RDW Plt Count MPV Sodium Potassium Chloride Carbon Dioxide Anion Gap BUN Creatinine Creat Clearance w eGFR POC Glucometer 155 101 Random Glucose Calcium Total Bilirubin AST ALT Alkaline Phosphatase Total Protein Albumin Urine Color Urine Appearance Urine pH Ur Specific [place] Urine Protein Urine Glucose (UA) Urine Ketones Urine Blood Urine Nitrite Urine Bilirubin Urine Urobilinogen Ur Leukocyte Esterase RPR Titer HIV 1&2 Antibody Screen Negative HIV P24 Antigen Negative 07/27/17 07/28/17 07/28/17 20:43 05:14 12:00 WBC RBC Hgb Hct MCV MCH MCHC RDW Plt Count MPV Sodium Potassium Chloride Carbon Dioxide Anion Gap BUN Creatinine Creat Clearance w eGFR POC Glucometer 155 108 144 Random Glucose Calcium Total Bilirubin AST ALT Alkaline Phosphatase Total Protein Albumin Urine Color Urine Appearance Urine pH Ur Specific [place] Urine Protein Urine Glucose (UA) Urine Ketones Urine Blood Urine Nitrite Urine Bilirubin Urine Urobilinogen Ur Leukocyte Esterase RPR Titer HIV 1&2 Antibody Screen HIV P24 Antigen 07/28/17 07/29/17 07/29/17 16:23 06:06 07:50 WBC RBC Hgb Hct MCV MCH MCHC RDW Plt Count MPV Sodium 139 Potassium 4.5 Chloride 107 Carbon Dioxide 23 Anion Gap 9 BUN 30 H Creatinine 1.3 Creat Clearance w eGFR POC Glucometer 97 97 Random Glucose 83 Calcium 8.0 L Total Bilirubin AST ALT Alkaline Phosphatase Total Protein Albumin Urine Color Urine Appearance Urine pH Ur Specific [place] Urine Protein Urine Glucose (UA) Urine Ketones Urine Blood Urine Nitrite Urine Bilirubin Urine Urobilinogen Ur Leukocyte Esterase RPR Titer HIV 1&2 Antibody Screen HIV P24 Antigen 07/29/17 07/30/17 07/30/17 20:39 06:05 11:01 WBC RBC Hgb Hct MCV MCH MCHC RDW Plt Count MPV Sodium Potassium Chloride Carbon Dioxide Anion Gap BUN Creatinine Creat Clearance w eGFR POC Glucometer 111 100 106 Random Glucose Calcium Total Bilirubin AST ALT Alkaline Phosphatase Total Protein Albumin Urine Color Urine Appearance Urine pH Ur Specific [place] Urine Protein Urine Glucose (UA) Urine Ketones Urine Blood Urine Nitrite Urine Bilirubin Urine Urobilinogen Ur Leukocyte Esterase RPR Titer HIV 1&2 Antibody Screen HIV P24 Antigen Labs noted: bun 30 Assessment: 07/30/17 16:20 Withdrawal symptoms Noted with azotemia and left foot cellulitis Plan: Continue detox Azotemia: encouraged to drink lots of water Left foot cellulitis: continue bactrim DS
[2017-07-30] MEDS: THIAMINE HCL 100 MG TABLET (FP) PO SCH (22:03)
[2017-07-31] MEDS: ACETAMINOPHEN 325 MG TABLET (FP) PO PRN (05:45)
[2017-07-31] MEDS ORDERED: METHADONE HCL 5 MG TABLET (FOR DETOX USE ONLY) PO SCH (06:00)
[2017-07-31] MEDS: INSULIN SLIDING SCALE (NOVOLOG) 1 VIAL SQ SCH ×2 (07:32→12:25)
[2017-07-31] MEDS ORDERED: METHADONE HCL 10 MG TABLET (FOR DETOX USE ONLY) PO ONE (10:00)
[2017-07-31] MEDS ORDERED: BENZTROPINE MESYLATE 1 MG TABLET (FP) PO PRN (10:35)
[2017-07-31] MEDS: SULFAMETHOXAZOLE/TRIMETHOPRIM 800MG/160MG D.S. TABLET PO SCH (10:37)
[2017-07-31] MEDS: TOLNAFTATE 1% CREAM 15 GM TUBE TP SCH (10:37)
[2017-07-31] MEDS: NICOTINE 14 MG/24 HOURS TOPICAL PATCH TD SCH (10:37)
[2017-07-31] MEDS: BACITRACIN 0.9 GM PACKET TP SCH (10:37)
[2017-07-31] MEDS: NAPROXEN 500 MG TABLET (FP) PO SCH (10:37)
[2017-07-31] MEDS: amLODIPine BESYLATE 10 MG TABLET (FP) PO SCH (10:37)
[2017-07-31] MEDS: AMMONIUM LACTATE 12% LOTION 225 GM BOTTLE TP SCH (10:38)
[2017-07-31] MEDS: PRENATAL VITAMINS W/ FOLIC ACID TABLET (FP) PO SCH (10:38)
--- NOTE | 2017-07-31 11:14 | PN ---
Psychiatric 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 Vital Signs: Vital Signs Period Temp Pulse Resp BP Sys/Jett Pulse Ox Last 24 Hr 96.1 F-97.3 F 74-82 18-20 103-129/65-82 Date of Session: 07/31/17 Chief Complaint:: " I hear voices telling me to kill myself." HPI: Case of a 56 y/o male admitted on 07/26/[address] [place] [address] for detoxification treatment for alcohol,cocaine,marihuana and heroin dependence.A psychiatric re-evaluation was sought on 07/30/17 in response to patient's complaints of depressed mood,irritability and auditory hallucinations commanding him to commit suicide. ROS: Patient is handicapped.Ambulates with a cane : bilateral leg ulcers.Unsteady gait.Alert and oriented to person + place.Not time. Current Medications: Active Medications Generic Name Dose Route Start Last Admin Trade Name Freq PRN Reason Stop Dose Admin Acetaminophen 650 mg 07/26/17 23:10 07/31/17 05:45 Tylenol - PO 650 mg Q4H PRN Administration FEVER OR PAIN Amlodipine Besylate 10 mg 07/29/17 10:00 07/31/17 10:37 Norvasc - PO 10 mg DAILY FRANCINE Administration Bacitracin 0.9 gm 07/27/17 12:45 07/31/17 10:37 Bacitracin - TP 0.9 gm BID FRANCINE Administration Benztropine Mesylate 0.5 mg 07/31/17 10:35 Cogentin - PO Q6H PRN AGITATION Cyclobenzaprine HCl 5 mg 07/27/17 21:02 07/30/17 20:02 Cyclobenzaprine Hcl PO 5 mg TID PRN Administration leg pain Eucalyptus/Menthol/Phenol/Sorbitol 1 each 07/26/17 23:10 Cepastat Lozenge - MM Q4H PRN SORE THROAT Guaifenesin 10 ml 07/26/17 23:10 Robitussin Dm - PO Q6H PRN COUGH Haloperidol 2 mg 07/30/17 12:56 07/30/17 22:05 Haldol - PO 2 mg Q6H PRN Administration AGITATION Insulin Aspart 1 vial 07/27/17 07:00 07/31/17 07:32 Novolog Vial Sliding Scale - SQ Not Given ACHS [facility] Protocol Lactic Acid 1 applic 07/27/17 12:00 07/31/17 10:38 Lac-Hydrin 12 TP 1 applic BID FRANCINE Administration Loperamide HCl 4 mg 07/26/17 23:10 Imodium - PO Q6H PRN DIARRHEA Methadone HCl 5 mg 08/01/17 06:00 Dolophine - PO 08/01/17 06:01 ONCE@0600 ONE Naproxen 500 mg 07/27/17 22:00 07/31/17 10:37 Naprosyn - PO 500 mg BID FRANCINE Administration Nicotine 14 mg 07/27/17 10:00 07/31/17 10:37 Nicoderm Patch - TD Not Given DAILY FRANCINE Nicotine Polacrilex 2 mg 07/26/17 23:10 Nicorette Gum - BC Q2H PRN NICOTINE REPLACEMENT RX Multivit/Folic Acid/Iron 1 tab 07/27/17 10:00 07/31/17 10:38 Vitamins (Sjr) - PO 1 tab DAILY FRANCINE Administration Pseudoephedrine/Triprolidine 1 combo 07/26/17 23:10 Actifed - PO TID PRN NASAL CONGESTION Thiamine HCl 100 mg 07/27/17 22:00 07/30/17 22:03 Vitamin B1 - PO 100 mg HS FRANCINE Administration Tolnaftate 1 applic 07/28/17 22:00 07/31/17 10:37 Tinactin 1% Cream - TP 1 applic BID FRANCNIE Administration Trimethoprim/Sulfamethoxazole 1 each 07/27/17 12:00 07/31/17 10:37 Bactrim Ds - PO 08/06/17 11:59 1 each BID FRANCINE Administration Medication(s) Change(s): Medications reviewed. Current Side Effect: No Lab tests ordered: No Lab tests reviewed: Yes Provider note:: Chart reviewed.Case discussed with treatment team.Previous psychiatric evaluation notes (MANDA Malagon + Dr Borges) : appreciated.Patient is interviewed with assistance from official still runner # [id number].Findings as follows : patient is noted to be irritable,easily agitated in the interview." I have no hope.I want to .I worth nothing and I am better off ." Mr Naidu reports that he has continued to hear voices and that they keep on urging him to shoot himself.He aknowleges the ownership of a gun but " I will not tell you where it is." Patient argues that " this is a private matter." Disorganized, irrelevant and overly incoherent at times.Feels ashamed and worthless.Blames himself for past behaviors that led to his current misfortunes (estrangement from relatives,homelessness,financial strains,total absence of a support network ).Mr Naidu appears disheveled,unkempt and careless.Interview is interrupted with periods of outbursts and cursing.This patient is increasingly escalating and driven by rage against his current condition.He remains unpredictable, potentially self-destructive and dangerous to the therapeutic milieu.Mr Naidu cannot be managed in a detox setting at this time.He represents a clear and immediate danger to self and,perhaps,others.Patient meets criteria for transfer to a psychiatric institution.EMS services activated.Mr Naidu is converted to PC status.Patient will be transferred to the psychiatric emergency department at [facility] for safety. Total face to face time:: 70 Mental Status Exam - Mental Status Exam Alert and Oriented to: Place, Person Cognitive Function: Grossly Intact Patient Appearance: Unkempt, Disheveled Mood: Angry, Nervous, Withdrawn, Irritable Affect: Mood Congruent, Blunted Patient Behavior: Crying, Guarded Speech Pattern: Rambling (at times), Perseverating (on the issue of suicide ; language barrier : speaks croatian only), Tangential Voice Loudness: Normal Thought Process: Circumstantial, Disorganized Thought Disorder: Bizarre Hallucinations: Auditory (voices commanding him to cut himself with broken glass or shoot self if discharged ) Suicidal Ideation: Current, Past (patient admits to a failed suicide attempt - last month - via use of a firearm), Plan (cutting with fragments of broken glass or using a firearm as soon as discharged from hospital) Homicidal Ideation: Denies Insight/Judgement: Poor Sleep: Poorly, Difficulty falling asleep Appetite: Fair Gait/Station: Other (ambulates with cane ; difficult ambulation due to bilateral leg/pedal ulcers) Psychiatric Treatment Plan - Problem List (1) Psychotic disorder Comment: . (2) Personality disorder, unspecified Comment: Strongly suspected. (3) Alcohol dependence with uncomplicated withdrawal Comment: . (4) Opioid dependence with withdrawal Comment: . (5) Cocaine dependence Comment: . (6) Marijuana dependence Comment: . (7) Nicotine dependence Qualifiers: Nicotine product type: cigarettes Substance use status: in withdrawal Qualified Code(s): F17.213 - Nicotine dependence, cigarettes, with withdrawal Comment: . (8) Substance induced mood disorder Comment: Suspected.
--- NOTE | 2017-07-31 13:25 | PN ---
S 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 (SOAP) Subjective: ANXIETY,FATIGUE. PT IS ON 1:1 FROM YESTERDAY(SEE PSYCH NOTE OF 07/30/17. NO REPORT FROM LAST NIGHT OR THIS MORNING OF ANY IDEATIONS BY PATIENT. HOWEVER, PT IS REFERRED FOR PSYCH RE-EVALUATION TODAY. CHRONIC ULCER LLE WITH DRESSING. Objective: 07/31/17 13:25 Vital Signs Temperature 96.1 F L 07/31/17 09:36 Pulse Rate 74 07/31/17 09:36 Respiratory Rate 18 07/31/17 09:36 Blood Pressure 129/82 07/31/17 09:36 O2 Sat by Pulse Oximetry (%) Laboratory Last Values WBC 6.0 K/mm3 (4.0-10.0) 07/27/17 07:00 RBC 3.22 M/mm3 (4.00-5.60) L 07/27/17 07:00 Hgb 9.5 GM/dL (11.7-16.9) L 07/27/17 07:00 Hct 28.9 % (35.4-49) L 07/27/17 07:00 MCV 89.8 fl (80-96) 07/27/17 07:00 MCH 29.6 pg (25.7-33.7) 07/27/17 07:00 MCHC 33.0 g/dl (32.0-35.9) 07/27/17 07:00 RDW 16.7 % (11.9-15.9) H 07/27/17 07:00 Plt Count 171 K/MM3 (134-434) 07/27/17 07:00 MPV 9.6 fl (7.5-11.1) 07/27/17 07:00 Sodium 139 mmol/L (136-145) 07/29/17 07:50 Potassium 4.5 mmol/L (3.5-5.1) 07/29/17 07:50 Chloride 107 mmol/L (98-107) 07/29/17 07:50 Carbon Dioxide 23 mmol/L (21-32) 07/29/17 07:50 Anion Gap 9 (8-16) 07/29/17 07:50 BUN 30 mg/dL (7-18) H 07/29/17 07:50 Creatinine 1.3 mg/dL (0.7-1.3) 07/29/17 07:50 Creat Clearance w eGFR 57.53 (>60) 07/27/17 07:00 POC Glucometer 93 UNITS (80-120) 07/31/17 11:49 Random Glucose 83 mg/dL (74-106) 07/29/17 07:50 Calcium 8.0 mg/dL (8.5-10.1) L 07/29/17 07:50 Total Bilirubin 0.5 mg/dL (0.2-1.0) 07/27/17 07:00 AST 52 U/L (15-37) H 07/27/17 07:00 ALT 46 U/L (12-78) 07/27/17 07:00 Alkaline Phosphatase 99 U/L (45-117) 07/27/17 07:00 Total Protein 7.8 g/dl (6.4-8.2) 07/27/17 07:00 Albumin 2.8 g/dl (3.4-5.0) L 07/27/17 07:00 Urine Color Yellow 07/26/17 16:35 Urine Appearance Clear 07/26/17 16:35 Urine pH 5.0 (5.0-8.0) 07/26/17 16:35 Ur Specific [place] 1.021 (1.001-1.035) 07/26/17 16:35 Urine Protein Negative (NEGATIVE) 07/26/17 16:35 Urine Glucose (UA) Negative (NEGATIVE) 07/26/17 16:35 Urine Ketones Negative (NEGATIVE) 07/26/17 16:35 Urine Blood Negative (NEGATIVE) 07/26/17 16:35 Urine Nitrite Negative (NEGATIVE) 07/26/17 16:35 Urine Bilirubin Negative (NEGATIVE) 07/26/17 16:35 Urine Urobilinogen Negative mg/dL (0.2-1.0) 07/26/17 16:35 Ur Leukocyte Esterase Negative (NEGATIVE) 07/26/17 16:35 RPR Titer Nonreactive (NONREACTIVE) 07/27/17 07:00 HIV 1&2 Antibody Screen Negative 07/27/17 09:00 HIV P24 Antigen Negative 07/27/17 09:00 HEALING ULCER LLE. NO EXUDATE. Assessment: 07/31/17 13:28 WITHDRAWAL SX Plan: CONTINUE DETOX PSYCH RE-EVALUATION TODAY.
[2017-07-31 14:00] VITALS: BP 122/79; PULSE 75; TEMP 96.8
--- NOTE | 2017-07-31 15:30 | PN ---
S 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 Note: PT WAS SEEN BY DR CRAWLEY AND AFTER EVALUATION DETERMINED THAT PT BE TRANSFERRED TO [facility] ER RE: SUICIDAL IDEATIONS FOR APPROPRIATE MANAGEMENT/TREATMENT BY EMS(SEE PSYCH NOTE).
--- NOTE | 2017-07-31 16:51 | DS ---
[facility] Detox Discharge Summary Admission Date: 07/26/17 Discharge Date: 07/31/17 - History Present History: Alcohol Dependence, Opioid Dependence Additional Comments: PT TRANSFERRED TO [facility] DUE TO SUICIDAL IDEATIONS VIA EMS. Pertinent Past History: DM HTN DIABETIC ULCER LEFT ANKLE CELLULITIS LEFT FOOT - Physical Exam Results Vital Signs: Vital Signs Temperature 96.8 F L 07/31/17 14:00 Pulse Rate 75 07/31/17 14:00 Respiratory Rate 18 07/31/17 14:00 Blood Pressure 122/79 07/31/17 14:00 O2 Sat by Pulse Oximetry (%) Pertinent Admission Physical Exam Findings: WITHDRAWAL SX Laboratory Last Values WBC 6.0 K/mm3 (4.0-10.0) 07/27/17 07:00 RBC 3.22 M/mm3 (4.00-5.60) L 07/27/17 07:00 Hgb 9.5 GM/dL (11.7-16.9) L 07/27/17 07:00 Hct 28.9 % (35.4-49) L 07/27/17 07:00 MCV 89.8 fl (80-96) 07/27/17 07:00 MCH 29.6 pg (25.7-33.7) 07/27/17 07:00 MCHC 33.0 g/dl (32.0-35.9) 07/27/17 07:00 RDW 16.7 % (11.9-15.9) H 07/27/17 07:00 Plt Count 171 K/MM3 (134-434) 07/27/17 07:00 MPV 9.6 fl (7.5-11.1) 07/27/17 07:00 Sodium 139 mmol/L (136-145) 07/29/17 07:50 Potassium 4.5 mmol/L (3.5-5.1) 07/29/17 07:50 Chloride 107 mmol/L (98-107) 07/29/17 07:50 Carbon Dioxide 23 mmol/L (21-32) 07/29/17 07:50 Anion Gap 9 (8-16) 07/29/17 07:50 BUN 30 mg/dL (7-18) H 07/29/17 07:50 Creatinine 1.3 mg/dL (0.7-1.3) 07/29/17 07:50 Creat Clearance w eGFR 57.53 (>60) 07/27/17 07:00 POC Glucometer 93 UNITS (80-120) 07/31/17 11:49 Random Glucose 83 mg/dL (74-106) 07/29/17 07:50 Calcium 8.0 mg/dL (8.5-10.1) L 07/29/17 07:50 Total Bilirubin 0.5 mg/dL (0.2-1.0) 07/27/17 07:00 AST 52 U/L (15-37) H 07/27/17 07:00 ALT 46 U/L (12-78) 07/27/17 07:00 Alkaline Phosphatase 99 U/L (45-117) 07/27/17 07:00 Total Protein 7.8 g/dl (6.4-8.2) 07/27/17 07:00 Albumin 2.8 g/dl (3.4-5.0) L 07/27/17 07:00 Urine Color Yellow 07/26/17 16:35 Urine Appearance Clear 07/26/17 16:35 Urine pH 5.0 (5.0-8.0) 07/26/17 16:35 Ur Specific [place] 1.021 (1.001-1.035) 07/26/17 16:35 Urine Protein Negative (NEGATIVE) 07/26/17 16:35 Urine Glucose (UA) Negative (NEGATIVE) 07/26/17 16:35 Urine Ketones Negative (NEGATIVE) 07/26/17 16:35 Urine Blood Negative (NEGATIVE) 07/26/17 16:35 Urine Nitrite Negative (NEGATIVE) 07/26/17 16:35 Urine Bilirubin Negative (NEGATIVE) 07/26/17 16:35 Urine Urobilinogen Negative mg/dL (0.2-1.0) 07/26/17 16:35 Ur Leukocyte Esterase Negative (NEGATIVE) 07/26/17 16:35 RPR Titer Nonreactive (NONREACTIVE) 07/27/17 07:00 HIV 1&2 Antibody Screen Negative 07/27/17 09:00 HIV P24 Antigen Negative 07/27/17 09:00 - Medication Discharge Medications: Ambulatory Orders NK [No Known Home Medication] 07/26/17 - AMA Did Patient Leave Against Medical Advice: No (TRANSFERRED TO PSYCH ER )
[2017-08-01] MEDS ORDERED: METHADONE HCL 5 MG TABLET (FOR DETOX USE ONLY) PO ONE (06:00)
== END 2017-07-31 16:28 | DRG 773 ==
LOC: YASAS 21:17 → Y3N 23:28
PROVIDERS: ADMIT Internal Medicine; ATTEND Internal Medicine
PROC: HZ2ZZZZ Detoxification Services for Substance Abuse Treatment (ICD-10-PCS; principal; 2017-07-26)
DX: F11.20 Opioid dependence, uncomplicated (principal); F10.230 Alcohol dependence with withdrawal, uncomplicated; F14.10 Cocaine abuse, uncomplicated; F17.210 Nicotine dependence, cigarettes, uncomplicated; I10 Essential (primary) hypertension; E11.9 Type 2 diabetes mellitus without complications; L03.116 Cellulitis of left lower limb; E11.621 Type 2 diabetes mellitus with foot ulcer; Z91.5 Personal history of self-harm
CPT/HCPCS: 36415; 80048; 80053; 81003; 85027; 86593; 87389; 90688; 90732; 93005; 93010; G0008; G0009

== ENCOUNTER 2017-10-05 09:00 | Emergency (ER) | payer OTHER ==
[2017-10-05 09:12] VITALS: BMI 23.3
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
[2017-10-05 09:46] VITALS: BP 122/100; PULSE 85; TEMP 98.2
== END 2017-10-05 11:18 | disposition short-term general hospital (02) ==
LOC: JER 09:00
DX: R45.1 Restlessness and agitation (principal); I10 Essential (primary) hypertension; E11.9 Type 2 diabetes mellitus without complications; Z79.84 Long term (current) use of oral hypoglycemic drugs; B18.2 Chronic viral hepatitis C; K21.9 Gastro-esophageal reflux disease without esophagitis; F17.210 Nicotine dependence, cigarettes, uncomplicated; F25.9 Schizoaffective disorder, unspecified; F10.10 Alcohol abuse, uncomplicated; F14.10 Cocaine abuse, uncomplicated; F12.10 Cannabis abuse, uncomplicated; F11.10 Opioid abuse, uncomplicated; Z91.5 Personal history of self-harm
CPT/HCPCS: 99283-25

== ENCOUNTER 2020-03-04 12:23 | Inpatient (IN) | payer OTHER ==
[2020-03-04] MEDS ORDERED: DEXTROSE 50%-WATER - 25 GM/50 ML VIAL IVPUSH ONE ×2 (12:47→15:19)
[2020-03-04] MEDS ORDERED: LACTATED RINGERS SOLUTION 1000 ML INFUS.BAG IV ONE ×2 (12:47→13:57)
[2020-03-04] MEDS ORDERED: DEXTROSE 50%-WATER 25 GM/50 ML DISP.SYRIN ONE ×2 (12:53→15:23)
[2020-03-04 13:31] LABS: BASO % 0.8 % (0-2.0); HEMATOCRIT 37.2 % (35.4-49); HEMOGLOBIN 12.5 GM/dL (11.7-16.9); MCH 33.6 pg (25.7-33.7); MCHC 33.6 g/dl (32.0-35.9); MEAN CELL VOLUME 100.1 fl (80-96); MEAN PLT VOLUME 12.1 fl (7.5-11.1); NEUT % 57.2 % (42.8-82.8); PLATELET COUNT 95 K/MM3 (134-434); RBC 3.72 M/mm3 (4.00-5.60); RDW 14.7 % (11.9-15.9); WHITE BLOOD COUNT 5.8 K/mm3 (4.0-10.0)
[2020-03-04 13:37] LABS: INR 1.13 (0.83-1.09); PROTHROMBIN TIME (PATIENT) 13.4 SEC (9.7-13.0)
[2020-03-04 13:39] LABS: ACTIVATED PTT 42.3 SECONDS (25.2-36.5)
[2020-03-04 13:42] LABS: VENOUS BASE EXCESS -5.6 mmol/L (-2-2); VENOUS O2 SATURATION 85.9 % (70-80); VENOUS PCO2 52.3 mmHg (38-52); VENOUS PH 7.242 (7.310-7.410)
--- NOTE | 2020-03-04 13:57 | PDOC ---
Documentation entered by Feli Lo SCRIBE, acting as scribe for Treasure Hooper MD. Treasure Hooper MD: This documentation has been prepared by the Wally youssef Adrianna, SCRIBE, under my direction and personally reviewed by me in its entirety. I confirm that the documentation accurately reflects all work, treatment, procedures, and medical decision making performed by me. History of Present Illness - General Chief Complaint: Altered Mental Status Stated Complaint: Altered Mental Status Time Seen by Provider: 03/04/20 12:38 History Source: Patient Exam Limitations: No Limitations - History of Present Illness Initial Comments: HPI The patient is a 59 year old male, with a significant PMH of polysubstance abuse & EtOH dependence Diabetes, Hepatitis C, HTN, depression, GERD, hx of suicide attempts, hx diabetic ulcer on left ankle, presenting from [facility] with altered mental status. At 10:47am, patient was found in a corner altered and slurring his speech. Earlier in the morning, he was in his normal state of health. His BS in 61 while in the ED. HPI is limited secondary to a patient's mental status. Allergies: None Past Medical History/PSH: polysubstance abuse (cocaine and heroin) & EtOH dependence Diabetes, Hepatitis C, HTN, depression, GERD, hx of suicide attempts, hx diabetic ulcer on left ankle, umbilical hernia repair, left foot surgery Social history: polysubstance abuse (cocaine and heroin) & EtOH dependence. Daily smoker. [facility] resident. Meds: as documented in EMR Family history: noncontributory PMD: Dr. Kayla Garcia ROS- unable to obtain 2/2 patient's mental status Physical exam- limited 2/2 patients mental status General: +slurring speech. +altered. somnolent HEENT: +pupils are reactive and 2-3mm bilaterally. Neck: supple Resp: CTAB, normal and even respirations, no respiratory distress CVS: RRR, no murmurs, 2+ peripheral pulses throughout, no peripheral edema Abdomen: obese, nontender Neuro: +slurring speech. +altered. Skin: warm and well perfused, cap refill <2 sec, normal color Extremities: no calf tenderness MSK: WELDON x4 03/04/20 15:56 03/04/20 17:38 Past History - Medical History Allergies/Adverse Reactions: Allergies Allergy/AdvReac Type Severity Reaction Status Date / Time No Known Allergies Allergy Verified 10/05/17 09:11 Home Medications: Ambulatory Orders Clonazepam [Klonopin] 0.5 mg PO BID 10/05/17 Clonidine HCl 0.1 mg PO BID 10/05/17 Famotidine [Pepcid] 20 mg PO DAILY 10/05/17 Melatonin/Pyridoxine HCl (B6) [Melatonin 3 mg Tablet] 1 each PO HS 10/05/17 Oxycodone HCl/Acetaminophen [Percocet 5-325 mg Tablet] 1 tab PO Q4H PRN 10/05/17 Quetiapine Fumarate [Seroquel -] 50 mg PO BID 10/05/17 Quetiapine Fumarate [Seroquel -] 200 mg PO HS 10/05/17 Valproate Sodium Liquid [Depakene] 250 mg PO Q8H 10/05/17 Anemia: No Asthma: No Cancer: No Cardiac Disorders: No CVA: No COPD: No CHF: No DVT: No Dementia: No Diabetes: Yes (DOES NOT RECALL) GI Disorders: No Disorders: No HTN: No Hypercholesterolemia: No Kidney Stones: No Liver Disease: No Psychiatric Problems: Yes (mood affective ds, psychoaffective ds, major depression) Seizures: No Thyroid Disease: No - Surgical History Abdominal Surgery: Yes (UMBLICAL HERNIA REPAIR) Appendectomy: No Cardiac Surgery: No Cholecystectomy: No Lung Surgery: No Neurologic Surgery: No Orthopedic Surgery: No - Psycho-Social/Smoking History Smoking History: Current every day smoker Have you smoked in the past 12 months: Yes Number of Cigarettes Smoked Daily: 20 Cigars Per Day: 0 'Breaking Loose' booklet given: 07/26/17 Review of Systems - Review of Systems Able to Perform ROS?: No (AMS) Heart Score/ECG Review #1 ECG reviewed & interpreted by me at: 13:15 General ECG Interpretation: Sinus Rhythm, Normal Rate, Normal Intervals 03/04/20 14:19 EKG normal sinus rhythm 88 bpm, no interval abnormalities, narrow QRS, ST and T wave segments and morphology normal. Nonspecific T wave abnormalities ED Treatment Course - LABORATORY CBC & Chemistry Diagram: 03/04/20 13:01 03/04/20 16:30 - ADDITIONAL ORDERS Additional order review: Laboratory Results 03/04/20 12:35 POC Glucometer 61 03/04/20 12:35 POC Glucometer 61 Medical Decision Making - Medical Decision Making 03/04/20 13:56 Vital Signs Temp Pulse Resp BP Pulse Ox 99.0 F 99 H 18 77/56 L 0 L 03/04/20 12:24 03/04/20 12:24 03/04/20 12:24 03/04/20 12:24 03/04/20 12:24 vitals reviewed, hypotensive LGF, 99 spO2 100% DDx AMS: infection, UTI, metabolic/electrolyte derangement, drug/tox/metabolic encephalopathy, dehydration, CVA, ACS, elevated ammonia, hepatic encephalopathy, heroin OD/intox. Chest x-ray with weak inspiratory effort, possible congestive findings, central crowding Laboratory results reviewed, CBC and coags are normal. VBG with mild acute respiratory acidosis, patient is breathing, no tachypnea, will continue to monit or, ABG with mild acidosis but no CO2 narcosis or sig derangements. tylenol IVF hydration 2L, recheck 03/04/20 14:28 Mild MOY, transaminitis. Ammonia is also mildly elevated at 37.2. Troponin is negative, hypothyroidism well. of note labs and lytes with hyperK mild MOY, new from prior. EKG normal sinus rhythm 88 bpm, no interval abnormalities, narrow QRS, ST and T wave segments and morphology normal. Nonspecific T wave abnormalities tox screen is neg pending Urine drug screen CT head unremarkable, for acute pathology Hyper-K treated with shifting, hydration, insulin, dextrose and calcium gluconate nephro cs with Dr Edge - called to service awaiting callback. 03/04/20 15:11 pt more awake now. BP improved, normotensive now as well. repeat BMP with Cr 2.2, stable with K much improved 5.3 covid swab admits to using heroin, given to him by someone at [facility] admit to Dr Pretty. 03/04/20 17:37 Discharge - Discharge Information Problems reviewed: Yes Clinical Impression/Diagnosis: AMS (altered mental status), Hyperkalemia, MOY (acute kidney injury), Encephalopathy acute Condition: Fair - Admission Yes - Follow up/Referral - Patient Discharge Instructions - Post Discharge Activity
[2020-03-04 14:00] LABS: ALBUMIN 3.6 g/dl (3.4-5.0); ALK PHOS 146 U/L (45-117); BILIRUBIN,TOTAL 0.9 mg/dL (0.2-1); BLOOD UREA NITROGEN 29.3 mg/dL (7-18); CALCIUM 9.6 mg/dL (8.5-10.1); CHLORIDE 105 mmol/L (98-107); CO2 24 mmol/L (21-32); GLUCOSE,RANDOM 73 mg/dL (74-106); SGOT/AST 116 U/L (15-37); SGPT/ALT 100 U/L (13-61); SODIUM 135 mmol/L (136-145); TOT PROT 9.8 g/dl (6.4-8.2)
[2020-03-04 14:29] LABS: ARTERIAL BLD GAS O2 SATURATION 99.1 mmHg (95-98); ARTERIAL BLOOD GAS BASE EXCESS -6.9 mmol/L (-2-2); ARTERIAL BLOOD GAS PO2 183.6 mmHg (80-100)
[2020-03-04 14:33] LABS: ANION GAP 6 MMOL/L (8-16)
[2020-03-04 14:45] LABS: POTASSIUM 6.5 mmol/L (3.5-5.1)
[2020-03-04] MEDS ORDERED: CALCIUM GLUCONATE 10% - 1,000 MG/10 ML VIAL IVPUSH ONE (15:19)
[2020-03-04] MEDS ORDERED: SODIUM BICARBONATE 8.4% 50 MEQ/50 ML DISP.SYRIN IVPUSH ONE (15:19)
[2020-03-04] MEDS ORDERED: INSULIN REGULAR HUMAN 100 UNITS/ML *VIAL IVPUSH ONE (15:19)
[2020-03-04] MEDS ORDERED: CALCIUM GLUCONATE 10% - 1,000 MG/10 ML VIAL ONE (15:23)
[2020-03-04] MEDS ORDERED: SODIUM BICARBONATE 8.4% 50 MEQ/50 ML VIAL ONE ×2 (15:23→15:24)
[2020-03-04 17:17] LABS: BLOOD UREA NITROGEN 30.9 mg/dL (7-18); CREATININE 2.2 mg/dL (0.55-1.3); POTASSIUM 5.3 mmol/L (3.5-5.1)
--- NOTE | 2020-03-04 17:38 | HP ---
Admitting History and Physical - Primary Care Physician PCP: Kayla Garcia - Admission Chief Complaint: altereted mental status History of Present Illness: - History of Present Illness Initial Comments: HPI The patient is a 59 year old male, with a significant PMH of polysubstance abuse & EtOH dependence Diabetes, Hepatitis C, HTN, depression, GERD, hx of suicide attempts, hx diabetic ulcer on left ankle, presenting from [facility] with altered mental status. At 10:47am, patient was found in a corner altered and slurring his speech. Earlier in the morning, he was in his normal state of health. His BS in 61 while in the ED. HPI is limited secondary to a patient's mental status. Allergies: None Past Medical History/PSH: polysubstance abuse (cocaine and heroin) & EtOH dependence Diabetes, Hepatitis C, HTN, depression, GERD, hx of suicide attempts, hx diabetic ulcer on left ankle, umbilical hernia repair, left foot surgery Social history: polysubstance abuse (cocaine and heroin) & EtOH dependence. Daily smoker. [facility] resident. Meds: as documented in EMR Family history: noncontributory PMD: Dr. Kayla Garcia ER COURSE-- After receiving iv fluids, meds for hyperkalemia- pt 's mentation better History Source: Patient Limitations to Obtaining History: No Limitations - Past Medical History [employer]: Yes: Seizure Cardiovascular: Yes: HTN Pulmonary: Yes: COPD Hepatobiliary: Yes: Hepatitis C Heme/Onc: Yes: Anemia, Thrombocytopenia Additional Past Medical History: charcot foot - Smoking History Smoking history: Current every day smoker Have you smoked in the past 12 months: Yes Aproximately how many cigarettes per day: 20 - Alcohol/Substance Use Hx Alcohol Use: No Home Medications - Allergies Allergies/Adverse Reactions: Allergies Allergy/AdvReac Type Severity Reaction Status Date / Time No Known Allergies Allergy Verified 10/05/17 09:11 - Home Medications Home Medications: Ambulatory Orders Clonazepam [Klonopin] 0.5 mg PO BID 10/05/17 Clonidine HCl 0.1 mg PO BID 10/05/17 Famotidine [Pepcid] 20 mg PO DAILY 10/05/17 Melatonin/Pyridoxine HCl (B6) [Melatonin 3 mg Tablet] 1 each PO HS 10/05/17 Oxycodone HCl/Acetaminophen [Percocet 5-325 mg Tablet] 1 tab PO Q4H PRN 10/05/17 Quetiapine Fumarate [Seroquel -] 50 mg PO BID 10/05/17 Quetiapine Fumarate [Seroquel -] 200 mg PO HS 10/05/17 Valproate Sodium Liquid [Depakene] 250 mg PO Q8H 10/05/17 Physical Examination Vital Signs: Vital Signs Temperature 98.9 F 03/04/20 17:35 Pulse Rate 90 03/04/20 17:35 Respiratory Rate 19 03/04/20 17:35 Blood Pressure 96/68 03/04/20 17:35 O2 Sat by Pulse Oximetry (%) 98 03/04/20 17:35 Constitutional: Yes: No Distress, Calm Cardiovascular: Yes: Regular Rate and Rhythm Respiratory: Yes: CTA Bilaterally Gastrointestinal: Yes: Normal Bowel Sounds, Soft, Abdomen, Obese. No: Distention Edema: Yes Edema: LLE: Trace Labs: CBC, BMP 03/04/20 13:01 03/04/20 16:30 Imaging - Results Chest X-ray: Image Reviewed (no infiltrate) Cat Scan: Report Reviewed Problem List - Problems (1) MOY (acute kidney injury) Code(s): N17.9 - ACUTE KIDNEY FAILURE, UNSPECIFIED (2) AMS (altered mental status) Code(s): R41.82 - ALTERED MENTAL STATUS, UNSPECIFIED (3) Encephalopathy acute Code(s): G93.40 - ENCEPHALOPATHY, UNSPECIFIED (4) Hyperkalemia Code(s): E87.5 - HYPERKALEMIA Assessment/Plan PLAN IV fluids repeat potassium better Renal eval hold off on sedatives u-tox pending will give stat dose of antibiotics- pancultured COVID 19 pending h/o Hep c- platelets are at baseline- was seen by hematology outpt for thrombocytopenia SCD ordered for DVT prophylaixs
[2020-03-04] MEDS ORDERED: LACTULOSE 20 GM/30 ML UDC (FOR ORAL USE ONLY) PO ONE (17:48)
[2020-03-04] MEDS ORDERED: QUEtiapine FUMARATE 25 MG TABLET ONE (18:11)
[2020-03-04] MEDS ORDERED: DIVALPROEX SODIUM 125 MG TABLET E.C. ONE (18:11)
[2020-03-04] MEDS ORDERED: LACTULOSE 20 GM/30 ML UDC (FOR ORAL USE ONLY) ONE (18:11)
[2020-03-04] MEDS ORDERED: CEFTRIAXONE 1 GM in DEXTROSE 5%-WATER - 50 ML IVPB ONE (18:13)
[2020-03-04] MEDS ORDERED: CEFTRIAXONE 1 GM/50 ML BAG ONE (18:19)
[2020-03-04] MEDS ORDERED: SODIUM CHLORIDE 0.45% 1,000 ML IV SCH (18:30)
[2020-03-04 18:45] LABS: EPI CELLS >36 /uL (0-25.1); HYALINE CASTS 12 /uL (0-3.1); URINE APPEARANCE CLOUDY; URINE BACTERIA 26 /uL (0-1359); URINE BILIRUBIN NEGATIVE (NEGATIVE); URINE COLOR YELLOW; URINE GLUCOSE (UA) NEGATIVE (NEGATIVE); URINE KETONE NEGATIVE (NEGATIVE); URINE LEUK ESTERASE TRACE (NEGATIVE); URINE NITRITE NEGATIVE (NEGATIVE); URINE PROTEIN 1+ (NEGATIVE); URINE RBC 157 /uL (0-23.9); URINE UROBILINOGEN 0.2 mg/dL (0.2-1.0); URINE WBC 69 /uL (0-25.8)
[2020-03-04 18:51] LABS: COCAINE, UR NEGATIVE ng/ml (CUTOFF=300); METHADONE, UR NEGATIVE ng/ml (CUTOFF=300); PHENCYCLIDINE,URINE NEGATIVE ng/ml (CUTOFF=25); URINE AMPHETAMINES NEGATIVE ng/ml (CUTOFF=500); URINE BARBITURATES NEGATIVE ng/ml (CUTOFF=200); URINE BENZODIAZEPINES NEGATIVE ng/ml (CUTOFF=200)
[2020-03-04 18:59] LABS: OPIATES, URI POSITIVE ng/ml (CUTOFF=300)
[2020-03-04] MEDS: VALPROATE SODIUM 250 MG/5 ML UNIT DOSE CUP PO SCH (21:56)
[2020-03-04] MEDS: QUEtiapine FUMARATE 50 MG TABLET PO SCH (21:56)
[2020-03-05 06:25] LABS: HEMATOCRIT 31.9 % (35.4-49); HEMOGLOBIN 10.8 GM/dL (11.7-16.9); MCH 33.5 pg (25.7-33.7); MEAN CELL VOLUME 98.6 fl (80-96); MEAN PLT VOLUME 10.8 fl (7.5-11.1); PLATELET COUNT 58 K/MM3 (134-434); RBC 3.23 M/mm3 (4.00-5.60); RDW 14.5 % (11.9-15.9); WHITE BLOOD COUNT 4.7 K/mm3 (4.0-10.0)
[2020-03-05] MEDS: VALPROATE SODIUM 250 MG/5 ML UNIT DOSE CUP PO SCH ×3 (06:39→21:46)
[2020-03-05 06:47] LABS: ALBUMIN 2.8 g/dl (3.4-5.0); BLOOD UREA NITROGEN 30.9 mg/dL (7-18); CALCIUM 8.5 mg/dL (8.5-10.1); CREATININE 1.7 mg/dL (0.55-1.3); POTASSIUM 4.3 mmol/L (3.5-5.1)
[2020-03-05 06:59] LABS: TOT PROT 7.8 g/dl (6.4-8.2)
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
[2020-03-05] MEDS: QUEtiapine FUMARATE 50 MG TABLET PO SCH ×2 (09:12→21:46)
[2020-03-05] MEDS ORDERED: SODIUM CHLORIDE 0.45% 1,000 ML IV SCH (11:21)
--- NOTE | 2020-03-05 11:54 | EKG ---
Test Reason : Blood Pressure : / mmHG Vent. Rate : 088 BPM Atrial Rate : 088 BPM P-R Int : 158 ms QRS Dur : 084 ms QT Int : 342 ms P-R-T Axes : 057 -03 036 degrees QTc Int : 413 ms NORMAL SINUS RHYTHM POSSIBLE LEFT ATRIAL ENLARGEMENT BORDERLINE ECG WHEN COMPARED WITH ECG OF 29-JUL-2017 11:33, VENT. RATE HAS DECREASED BY 63 BPM QRS DURATION HAS DECREASED ST NO LONGER ELEVATED IN ANTERIOR LEADS NONSPECIFIC T WAVE ABNORMALITY, IMPROVED IN INFERIOR LEADS Confirmed by KELLY MARINO MD ([id number]) on 03/05/2020 11:53:49 AM Referred By: Confirmed By:KELLY MARINO MD
--- NOTE | 2020-03-05 13:36 | PN ---
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 (short form) - Note 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: more alert today no complaints Vital Signs - 24 hr 03/04/20 03/04/20 03/04/20 14:06 14:10 14:40 Temperature Pulse Rate [ 88 Apical] Pulse Rate [ Left Radial] Pulse Rate [ Right Radial] Respiratory 14 Rate Blood Pressure 85/51 L 79/65 L 106/82 [Right Arm] O2 Sat by Pulse 100 Oximetry (%) 03/04/20 03/04/20 03/04/20 17:35 19:40 21:00 Temperature 98.9 F 98.7 F Pulse Rate [ 90 84 Apical] Pulse Rate [ Left Radial] Pulse Rate [ 76 Right Radial] Respiratory 19 16 Rate Blood Pressure 96/68 101/60 107/62 [Right Arm] O2 Sat by Pulse 98 100 98 Oximetry (%) 03/04/20 03/05/20 03/05/20 23:00 01:00 02:42 Temperature Pulse Rate [ 81 79 68 Apical] Pulse Rate [ Left Radial] Pulse Rate [ Right Radial] Respiratory 14 12 20 Rate Blood Pressure 98/62 88/54 L 97/63 [Right Arm] O2 Sat by Pulse 98 96 98 Oximetry (%) 03/05/20 03/05/20 03/05/20 04:42 06:42 07:00 Temperature 98.1 F Pulse Rate [ 77 Apical] Pulse Rate [ 86 78 Left Radial] Pulse Rate [ Right Radial] Respiratory 14 12 20 Rate Blood Pressure 97/48 L 107/65 102/72 [Right Arm] O2 Sat by Pulse 99 98 96 Oximetry (%) 03/05/20 03/05/20 09:30 12:15 Temperature 98.2 F Pulse Rate [ Apical] Pulse Rate [ 73 85 Left Radial] Pulse Rate [ Right Radial] Respiratory 14 17 Rate Blood Pressure 100/73 120/85 [Right Arm] O2 Sat by Pulse 0 L Oximetry (%) Current Medications Generic Name Dose Route Start Last Admin Trade Name Freq PRN Reason Stop Dose Admin Sodium Chloride 1,000 mls @ 75 mls/hr 03/05/20 11:21 03/05/20 11:31 1/2 Normal Saline IV 75 mls/hr ASDIR FRANCINE Administration Ceftriaxone Sodium 1 gm/ 50 mls @ 100 mls/hr 03/05/20 13:00 Dextrose IVPB DAILY FRANCINE Quetiapine Fumarate 50 mg 03/04/20 22:00 07/16/20 09:12 Seroquel - PO 50 mg BID FRANCINE Administration Valproate Sodium 250 mg 03/04/20 22:00 03/05/20 06:39 Depakene - PO 250 mg TID FRANCINE Administration Laboratory Results - last 24 hr 03/04/20 03/04/20 03/04/20 13:01 13:01 13:01 WBC 5.8 RBC 3.72 L Hgb 12.5 Hct 37.2 D MCV 100.1 H MCH 33.6 D MCHC 33.6 RDW 14.7 D Plt Count 95 L D MPV 12.1 H D Absolute Neuts (auto) 3.3 Neutrophils % 57.2 D Lymphocytes % 27.0 D Monocytes % 13.0 H Eosinophils % 2.0 Basophils % 0.8 Nucleated RBC % 0 PT with INR 13.40 H INR 1.13 H PTT (Actin FS) 42.3 H Anticoagulation Therapy Puncture Site Patient Temperature ABG pH ABG pCO2 ABG pO2 ABG HCO3 ABG O2 Sat (Measured) ABG O2 Content ABG Base Excess Henri Test VBG pH POC VBG pCO2 POC VBG pO2 VBG HCO3 VBG O2 Sat (Aylin) VBG Base Excess Patient On Oxygen O2 Delivery Device Oxygen Flow Rate Vent Mode Vent Rate Mechanical Rate PEEP Pressure Support Vent Sodium 135 L Potassium 6.5 H* Chloride 105 Carbon Dioxide 24 Anion Gap 6 L BUN 29.3 H Creatinine 2.0 H Est GFR (CKD-EPI)AfAm 41.70 Est GFR (CKD-EPI)NonAf 35.98 POC Glucometer Random Glucose 73 L Lactic Acid Calcium 9.6 Total Bilirubin 0.9 AST 116 H ALT 100 H Alkaline Phosphatase 146 H Ammonia Creatine Kinase 157 Creatine Kinase Index 3.8 CK-MB (CK-2) 6.0 H Troponin I < 0.02 Total Protein 9.8 H Albumin 3.6 TSH 8.53 H Urine Color Urine Appearance Urine pH Ur Specific Merrill Urine Protein Urine Glucose (UA) Urine Ketones Urine Blood Urine Nitrite Urine Bilirubin Urine Urobilinogen Ur Leukocyte Esterase Urine WBC (Auto) Urine RBC (Auto) Urine Casts (Auto) U Pathogenic Cast Auto U Epithel Cells (Auto) U Sm Round Cell (Auto) Urine Bacteria (Auto) Salicylates Opiates Screen Methadone Screen Acetaminophen Barbiturate Screen Phencyclidine Screen Ur Amphetamines Screen MDMA (Ecstasy) Screen Benzodiazepines Screen Cocaine Screen U Marijuana (THC) Screen Alcohol, Quantitative COVID-19 (ISMA) Anti-A Titer Blood Type Antibody Screen 03/04/20 03/04/20 03/04/20 13:01 13:01 13:01 WBC RBC Hgb Hct MCV MCH MCHC RDW Plt Count MPV Absolute Neuts (auto) Neutrophils % Lymphocytes % Monocytes % Eosinophils % Basophils % Nucleated RBC % PT with INR INR PTT (Actin FS) Anticoagulation Therapy Puncture Site Patient Temperature ABG pH ABG pCO2 ABG pO2 ABG HCO3 ABG O2 Sat (Measured) ABG O2 Content ABG Base Excess Henri Test VBG pH 7.242 L POC VBG pCO2 52.3 H POC VBG pO2 59.3 H VBG HCO3 22.0 L VBG O2 Sat (Aylin) 85.9 H VBG Base Excess -5.6 L Patient On Oxygen O2 Delivery Device Oxygen Flow Rate Vent Mode Vent Rate Mechanical Rate PEEP Pressure Support Vent Sodium Potassium Chloride Carbon Dioxide Anion Gap BUN Creatinine Est GFR (CKD-EPI)AfAm Est GFR (CKD-EPI)NonAf POC Glucometer Random Glucose Lactic Acid Calcium Total Bilirubin AST ALT Alkaline Phosphatase Ammonia Creatine Kinase Creatine Kinase Index CK-MB (CK-2) Troponin I Total Protein Albumin TSH Urine Color Urine Appearance Urine pH Ur Specific Merrill Urine Protein Urine Glucose (UA) Urine Ketones Urine Blood Urine Nitrite Urine Bilirubin Urine Urobilinogen Ur Leukocyte Esterase Urine WBC (Auto) Urine RBC (Auto) Urine Casts (Auto) U Pathogenic Cast Auto U Epithel Cells (Auto) U Sm Round Cell (Auto) Urine Bacteria (Auto) Salicylates Opiates Screen Methadone Screen Acetaminophen Barbiturate Screen Phencyclidine Screen Ur Amphetamines Screen MDMA (Ecstasy) Screen Benzodiazepines Screen Cocaine Screen U Marijuana (THC) Screen Alcohol, Quantitative < 3 COVID-19 (ISMA) Anti-A Titer Blood Type AB POSITIVE Antibody Screen Negative 03/04/20 03/04/20 03/04/20 13:04 13:04 13:04 WBC RBC Hgb Hct MCV MCH MCHC RDW Plt Count MPV Absolute Neuts (auto) Neutrophils % Lymphocytes % Monocytes % Eosinophils % Basophils % Nucleated RBC % PT with INR INR PTT (Actin FS) Anticoagulation Therapy Puncture Site Patient Temperature ABG pH ABG pCO2 ABG pO2 ABG HCO3 ABG O2 Sat (Measured) ABG O2 Content ABG Base Excess Henri Test VBG pH POC VBG pCO2 POC VBG pO2 VBG HCO3 VBG O2 Sat (Aylin) VBG Base Excess Patient On Oxygen O2 Delivery Device Oxygen Flow Rate Vent Mode Vent Rate Mechanical Rate PEEP Pressure Support Vent Sodium Potassium Chloride Carbon Dioxide Anion Gap BUN Creatinine Est GFR (CKD-EPI)AfAm Est GFR (CKD-EPI)NonAf POC Glucometer Random Glucose Lactic Acid 1.6 Calcium Total Bilirubin AST ALT Alkaline Phosphatase Ammonia 37.20 H Creatine Kinase Creatine Kinase Index CK-MB (CK-2) Troponin I Total Protein Albumin TSH Urine Color Urine Appearance Urine pH Ur Specific Merrill Urine Protein Urine Glucose (UA) Urine Ketones Urine Blood Urine Nitrite Urine Bilirubin Urine Urobilinogen Ur Leukocyte Esterase Urine WBC (Auto) Urine RBC (Auto) Urine Casts (Auto) U Pathogenic Cast Auto U Epithel Cells (Auto) U Sm Round Cell (Auto) Urine Bacteria (Auto) Salicylates Opiates Screen Methadone Screen Acetaminophen Barbiturate Screen Phencyclidine Screen Ur Amphetamines Screen MDMA (Ecstasy) Screen Benzodiazepines Screen Cocaine Screen U Marijuana (THC) Screen Alcohol, Quantitative COVID-19 (ISMA) Anti-A Titer Cancelled Blood Type Cancelled Antibody Screen Cancelled 03/04/20 03/04/20 03/04/20 13:04 13:04 13:38 WBC RBC Hgb Hct MCV MCH MCHC RDW Plt Count MPV Absolute Neuts (auto) Neutrophils % Lymphocytes % Monocytes % Eosinophils % Basophils % Nucleated RBC % PT with INR INR PTT (Actin FS) Anticoagulation Therapy Puncture Site Patient Temperature ABG pH ABG pCO2 ABG pO2 ABG HCO3 ABG O2 Sat (Measured) ABG O2 Content ABG Base Excess Henri Test VBG pH POC VBG pCO2 POC VBG pO2 VBG HCO3 VBG O2 Sat (Aylin) VBG Base Excess Patient On Oxygen O2 Delivery Device Oxygen Flow Rate Vent Mode Vent Rate Mechanical Rate PEEP Pressure Support Vent Sodium Potassium Chloride Carbon Dioxide Anion Gap BUN Creatinine Est GFR (CKD-EPI)AfAm Est GFR (CKD-EPI)NonAf POC Glucometer 150 Random Glucose Lactic Acid Calcium Total Bilirubin AST ALT Alkaline Phosphatase Ammonia Creatine Kinase Creatine Kinase Index CK-MB (CK-2) Troponin I Total Protein Albumin TSH Urine Color Urine Appearance Urine pH Ur Specific Merrill Urine Protein Urine Glucose (UA) Urine Ketones Urine Blood Urine Nitrite Urine Bilirubin Urine Urobilinogen Ur Leukocyte Esterase Urine WBC (Auto) Urine RBC (Auto) Urine Casts (Auto) U Pathogenic Cast Auto U Epithel Cells (Auto) U Sm Round Cell (Auto) Urine Bacteria (Auto) Salicylates < 1.7 L Opiates Screen Methadone Screen Acetaminophen <2.0 Barbiturate Screen Phencyclidine Screen Ur Amphetamines Screen MDMA (Ecstasy) Screen Benzodiazepines Screen Cocaine Screen U Marijuana (THC) Screen Alcohol, Quantitative COVID-19 (ISMA) Anti-A Titer Blood Type Cancelled Antibody Screen 03/04/20 03/04/20 03/04/20 14:20 14:40 16:30 WBC RBC Hgb Hct MCV MCH MCHC RDW Plt Count MPV Absolute Neuts (auto) Neutrophils % Lymphocytes % Monocytes % Eosinophils % Basophils % Nucleated RBC % PT with INR INR PTT (Actin FS) Anticoagulation Therapy No Result Required. Puncture Site Right radial Patient Temperature No Result Required. ABG pH 7.270 L ABG pCO2 43.90 ABG pO2 183.6 H ABG HCO3 19.7 L ABG O2 Sat (Measured) 99.1 H ABG O2 Content No Result Required. ABG Base Excess -6.9 L Henri Test No Result Required. VBG pH POC VBG pCO2 POC VBG pO2 VBG HCO3 VBG O2 Sat (Aylin) VBG Base Excess Patient On Oxygen Yes O2 Delivery Device Brether Oxygen Flow Rate 100 Vent Mode No Result Required. Vent Rate No Result Required. Mechanical Rate No Result Required. PEEP No Result Required. Pressure Support Vent No Result Required. Sodium 136 Potassium 5.3 H Chloride 106 Carbon Dioxide 23 Anion Gap 7 L BUN 30.9 H Creatinine 2.2 H Est GFR (CKD-EPI)AfAm 37.16 Est GFR (CKD-EPI)NonAf 32.06 POC Glucometer Random Glucose 80 Lactic Acid Calcium 9.0 Total Bilirubin AST ALT Alkaline Phosphatase Ammonia Creatine Kinase Creatine Kinase Index CK-MB (CK-2) Troponin I Total Protein Albumin TSH Urine Color Urine Appearance Urine pH Ur Specific Merrill Urine Protein Urine Glucose (UA) Urine Ketones Urine Blood Urine Nitrite Urine Bilirubin Urine Urobilinogen Ur Leukocyte Esterase Urine WBC (Auto) Urine RBC (Auto) Urine Casts (Auto) U Pathogenic Cast Auto U Epithel Cells (Auto) U Sm Round Cell (Auto) Urine Bacteria (Auto) Salicylates Opiates Screen Methadone Screen Acetaminophen Barbiturate Screen Phencyclidine Screen Ur Amphetamines Screen MDMA (Ecstasy) Screen Benzodiazepines Screen Cocaine Screen U Marijuana (THC) Screen Alcohol, Quantitative COVID-19 (ISMA) Not detected Anti-A Titer Blood Type Antibody Screen 03/04/20 03/04/20 03/05/20 18:19 18:19 05:50 WBC 4.7 RBC 3.23 L Hgb 10.8 L Hct 31.9 L MCV 98.6 H MCH 33.5 MCHC 34.0 RDW 14.5 Plt Count 58 L D MPV 10.8 D Absolute Neuts (auto) Neutrophils % Lymphocytes % Monocytes % Eosinophils % Basophils % Nucleated RBC % PT with INR INR PTT (Actin FS) Anticoagulation Therapy Puncture Site Patient Temperature ABG pH ABG pCO2 ABG pO2 ABG HCO3 ABG O2 Sat (Measured) ABG O2 Content ABG Base Excess Henri Test VBG pH POC VBG pCO2 POC VBG pO2 VBG HCO3 VBG O2 Sat (Aylin) VBG Base Excess Patient On Oxygen O2 Delivery Device Oxygen Flow Rate Vent Mode Vent Rate Mechanical Rate PEEP Pressure Support Vent Sodium Potassium Chloride Carbon Dioxide Anion Gap BUN Creatinine Est GFR (CKD-EPI)AfAm Est GFR (CKD-EPI)NonAf POC Glucometer Random Glucose Lactic Acid Calcium Total Bilirubin AST ALT Alkaline Phosphatase Ammonia Creatine Kinase Creatine Kinase Index CK-MB (CK-2) Troponin I Total Protein Albumin TSH Urine Color Yellow Urine Appearance Cloudy Urine pH 5.0 Ur Specific Merrill 1.016 Urine Protein 1+ H Urine Glucose (UA) Negative Urine Ketones Negative Urine Blood 2+ H Urine Nitrite Negative Urine Bilirubin Negative Urine Urobilinogen 0.2 Ur Leukocyte Esterase Trace Urine WBC (Auto) 69 Urine RBC (Auto) 157 Urine Casts (Auto) 12 U Pathogenic Cast Auto 2-4 U Epithel Cells (Auto) >36 U Sm Round Cell (Auto) Negative Urine Bacteria (Auto) 26 Salicylates Opiates Screen Positive A* Methadone Screen Negative Acetaminophen Barbiturate Screen Negative Phencyclidine Screen Negative Ur Amphetamines Screen Negative MDMA (Ecstasy) Screen Positive A* Benzodiazepines Screen Negative Cocaine Screen Negative U Marijuana (THC) Screen Negative Alcohol, Quantitative COVID-19 (ISMA) Anti-A Titer Blood Type Antibody Screen 03/05/20 05:50 WBC RBC Hgb Hct MCV MCH MCHC RDW Plt Count MPV Absolute Neuts (auto) Neutrophils % Lymphocytes % Monocytes % Eosinophils % Basophils % Nucleated RBC % PT with INR INR PTT (Actin FS) Anticoagulation Therapy Puncture Site Patient Temperature ABG pH ABG pCO2 ABG pO2 ABG HCO3 ABG O2 Sat (Measured) ABG O2 Content ABG Base Excess Henri Test VBG pH POC VBG pCO2 POC VBG pO2 VBG HCO3 VBG O2 Sat (Aylin) VBG Base Excess Patient On Oxygen O2 Delivery Device Oxygen Flow Rate Vent Mode Vent Rate Mechanical Rate PEEP Pressure Support Vent Sodium 135 L Potassium 4.3 Chloride 104 Carbon Dioxide 25 Anion Gap 5 L BUN 30.9 H Creatinine 1.7 H Est GFR (CKD-EPI)AfAm 50.75 Est GFR (CKD-EPI)NonAf 43.79 POC Glucometer Random Glucose 83 Lactic Acid Calcium 8.5 Total Bilirubin 1.0 AST 240 H ALT 153 H Alkaline Phosphatase 113 Ammonia Creatine Kinase Creatine Kinase Index CK-MB (CK-2) Troponin I Total Protein 7.8 Albumin 2.8 L TSH Urine Color Urine Appearance Urine pH Ur Specific Merrill Urine Protein Urine Glucose (UA) Urine Ketones Urine Blood Urine Nitrite Urine Bilirubin Urine Urobilinogen Ur Leukocyte Esterase Urine WBC (Auto) Urine RBC (Auto) Urine Casts (Auto) U Pathogenic Cast Auto U Epithel Cells (Auto) U Sm Round Cell (Auto) Urine Bacteria (Auto) Salicylates Opiates Screen Methadone Screen Acetaminophen Barbiturate Screen Phencyclidine Screen Ur Amphetamines Screen MDMA (Ecstasy) Screen Benzodiazepines Screen Cocaine Screen U Marijuana (THC) Screen Alcohol, Quantitative COVID-19 (ISMA) Anti-A Titer Blood Type Antibody Screen S1 S2 RRR Lungs clear Abd- soft, NT trace edema to left foot A/P drug use AMS due to drug use hyperkalemia r.o sepsis acute kidney injury -- renal function better -- does not seem to have toxic effects of MDMA-->hypertension, hyperthermia, syncope -- tele monitoring for arrhythmias -- if cultures negative, and no arrhythmias overnight , may dc to [place] in AM Problem List - Problems (1) MOY (acute kidney injury) Code(s): N17.9 - ACUTE KIDNEY FAILURE, UNSPECIFIED (2) AMS (altered mental status) Code(s): R41.82 - ALTERED MENTAL STATUS, UNSPECIFIED (3) Encephalopathy acute Code(s): G93.40 - ENCEPHALOPATHY, UNSPECIFIED (4) Hyperkalemia Code(s): E87.5 - HYPERKALEMIA
[2020-03-05] MEDS ORDERED: cefTRIAXone SODIUM 1 GM VIAL ONE (15:31)
[2020-03-05] MEDS ORDERED: DEXTROSE 5%-WATER - 50 ML IVPB ONE (15:31)
[2020-03-05] MEDS: CEFTRIAXONE 1 GM in DEXTROSE 5%-WATER - 50 ML IVPB SCH (15:47)
[2020-03-05 16:07] VITALS: BMI 34.6
[2020-03-05 16:32] LABS: URINE APPEARANCE CLEAR; URINE BILIRUBIN NEGATIVE (NEGATIVE); URINE COLOR YELLOW; URINE GLUCOSE (UA) NEGATIVE (NEGATIVE); URINE KETONE NEGATIVE (NEGATIVE); URINE LEUK ESTERASE NEGATIVE (NEGATIVE); URINE NITRITE NEGATIVE (NEGATIVE); URINE PROTEIN NEGATIVE (NEGATIVE)
[2020-03-05] MEDS ORDERED: PT OWN MED DRAWER 7, Y5N ONE ×2 (16:37→21:40)
[2020-03-06] MEDS ORDERED: PT OWN MED DRAWER 7, Y5N ONE ×2 (05:45→13:27)
[2020-03-06] MEDS: VALPROATE SODIUM 250 MG/5 ML UNIT DOSE CUP PO SCH ×2 (06:15→13:49)
[2020-03-06 08:51] LABS: ALBUMIN 2.7 g/dl (3.4-5.0); BILIRUBIN,TOTAL 0.9 mg/dL (0.2-1); BLOOD UREA NITROGEN 27.2 mg/dL (7-18); CALCIUM 8.6 mg/dL (8.5-10.1); CREATININE 1.4 mg/dL (0.55-1.3); POTASSIUM 4.3 mmol/L (3.5-5.1); TOT PROT 7.7 g/dl (6.4-8.2)
[2020-03-06] MEDS ORDERED: DEXTROSE 5%-WATER - 50 ML IVPB ONE (09:04)
[2020-03-06] MEDS ORDERED: cefTRIAXone SODIUM 1 GM VIAL ONE (09:04)
[2020-03-06] MEDS: QUEtiapine FUMARATE 50 MG TABLET PO SCH (09:29)
[2020-03-06] MEDS: CEFTRIAXONE 1 GM in DEXTROSE 5%-WATER - 50 ML IVPB SCH (09:29)
[2020-03-06] MEDS ORDERED: SODIUM CHLORIDE 0.45% 1,000 ML IV SCH (13:06)
--- NOTE | 2020-03-06 13:06 | PN ---
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, Physician History of Present Illness: Pt seen and examined at bedside. He is more awake and alert. He is able to ambulate without difficulty. - Current Medication List Current Medications: Active Medications Sodium Chloride (1/2 Normal Saline) 1,000 mls @ 75 mls/hr IV ASDIR [facility] Last Admin: 03/05/20 11:31 Dose: 75 mls/hr Documented by: Ceftriaxone Sodium 1 gm/ (Dextrose) 50 mls @ 100 mls/hr IVPB DAILY [facility] Last Admin: 03/06/20 09:29 Dose: 100 mls/hr Documented by: Quetiapine Fumarate (Seroquel -) 50 mg PO BID [facility] Last Admin: 03/06/20 09:29 Dose: 50 mg Documented by: Valproate Sodium (Depakene -) 250 mg PO TID [facility] Last Admin: 03/06/20 06:15 Dose: 250 mg Documented by: - Objective Vital Signs: Vital Signs Temperature 98 F 03/06/20 09:00 Pulse Rate 79 03/06/20 09:00 Respiratory Rate 18 03/06/20 09:00 Blood Pressure 102/57 L 03/06/20 09:00 O2 Sat by Pulse Oximetry (%) 97 03/06/20 09:00 Constitutional: Yes: Calm Eyes: Yes: Conjunctiva Clear HENT: Yes: Atraumatic Neck: Yes: Supple Cardiovascular: Yes: S1, S2 Respiratory: Yes: CTA Bilaterally Gastrointestinal: Yes: Soft Genitourinary: Yes: WNL Musculoskeletal: Yes: WNL Edema: No Neurological: Yes: Oriented Psychiatric: Yes: Oriented Labs: CBC, BMP 03/05/20 05:50 03/06/20 07:29 INR, PTT INR 1.13 (0.83-1.09) H 03/04/20 13:01 Problem List - Problems (1) MOY (acute kidney injury) Code(s): N17.9 - ACUTE KIDNEY FAILURE, UNSPECIFIED (2) AMS (altered mental status) Code(s): R41.82 - ALTERED MENTAL STATUS, UNSPECIFIED (3) Hyperkalemia Code(s): E87.5 - HYPERKALEMIA Assessment/Plan Current Medications Generic Name Dose Route Start Last Admin Trade Name Freq PRN Reason Stop Dose Admin Sodium Chloride 1,000 mls @ 75 mls/hr 03/05/20 11:21 03/05/20 11:31 1/2 Normal Saline IV 75 mls/hr ASDIR FRANCINE Administration Ceftriaxone Sodium 1 gm/ 50 mls @ 100 mls/hr 03/05/20 13:00 03/06/20 09:29 Dextrose IVPB 100 mls/hr DAILY FRANCINE Administration Quetiapine Fumarate 50 mg 03/04/20 22:00 03/06/20 09:29 Seroquel - PO 50 mg BID FRANCINE Administration Valproate Sodium 250 mg 03/04/20 22:00 03/06/20 06:15 Depakene - PO 250 mg TID FRANCINE Administration Laboratory Tests 03/05/20 15:50 Urine Protein Negative Urine Blood Negative Impression 1. MOY 2. hyperkalemia 3. altered mental status 4. hep c 5. htn 6. gerd 7. dm Plan - renal function improve - renal ultrasound reviewed - follow echo - bp still on low side - cont fluids, decrease rate
--- NOTE | 2020-03-06 13:20 | DS ---
Physical Examination Vital Signs: Vital Signs Temperature 98 F 03/06/20 09:00 Pulse Rate 79 03/06/20 09:00 Respiratory Rate 18 03/06/20 09:00 Blood Pressure 102/57 L 03/06/20 09:00 O2 Sat by Pulse Oximetry (%) 97 03/06/20 09:00 Findings/Remarks: Awake/ comfortable feels ok chart reviewed echo done today tele unremarkable Constitutional: Yes: No Distress, Calm Neck: Yes: Supple Cardiovascular: Yes: Regular Rate and Rhythm Respiratory: Yes: CTA Bilaterally Gastrointestinal: Yes: Soft Edema: No Labs: CBC, BMP 03/05/20 05:50 03/06/20 07:29 Discharge Summary Problems reviewed: Yes Reason For Visit: Altered Mental Status Current Active Problems MOY (acute kidney injury) (Acute) AMS (altered mental status) (Acute) Encephalopathy acute (Acute) Hyperkalemia (Acute) Hospital Course: The patient is a 59 year old male, with a significant PMH of polysubstance abuse & EtOH dependence Diabetes, Hepatitis C, HTN, depression, GERD, hx of suicide attempts, hx diabetic ulcer on left ankle, presenting [facility] with altered mental status. At 10:47am, patient was found in a corner altered and slurring his speech. u tox - + Ectasy Also in arf-- better with fluids cultures -ve u/s kidneys ok will d/c back to alf off abx will follow in alf meds reviewed /reconcilled d/w Rn also Condition: Fair - Instructions Referrals: Kayla Garcia MD [Primary Care Provider] - Disposition: [facility] F[facility]ILITY - Home Medications Comprehensive Discharge Medication List: Ambulatory Orders Clonidine HCl 0.1 mg PO BID 10/05/17 Famotidine [Pepcid] 20 mg PO DAILY 10/05/17 Melatonin/Pyridoxine HCl (B6) [Melatonin 3 mg Tablet] 1 each PO HS 10/05/17 Quetiapine Fumarate [Seroquel -] 50 mg PO BID 10/05/17 Valproate Sodium Liquid [Depakene Oral Solution -] 250 mg PO Q8H 10/05/17 Bupropion HCl [Wellbutrin Xl] 300 mg PO DAILY #30 tab.er.24h 03/06/20 Quetiapine Fumarate [Seroquel -] 200 mg PO HS #30 tab 03/06/20 Tamsulosin HCl [Flomax] 0.4 mg PO DAILY #30 cap.er.24h 03/06/20
--- NOTE | 2020-03-06 13:58 | ECHO ---
Version: 1 Name: ABRAHAM MORGAN Exam: Adult Echocardiogram Study Date: 03/06/2020, 11:14 AM Age: 59 Years MMode/2D Measurements & Calculations IVSd: 1.16 cm LVIDs: 2.7 cm LVIDd: 3.8 cm LVPWd: 0.92 cm LAV (MOD-bp): 58.0 ml ACS: 2.14 cm Ao root diam: 3.2 cm LVOT diam: 2.16 cm LA dimension: 3.8 cm Doppler Measurements & Calculations MV E max ronald: 79.5 cm/sec MVA(VTI): 3.2 cm MV A max ronald: 72.1 cm/sec MV V2 max: 99.5 cm/sec MV mean P.88 mmHg MV max P.0 mmHg MV E/A: 1.10 Med E/e': 14.5 Lat E/e': 8.2 Med Peak E' Ronald: 5.5 cm/sec Lat Peak E' Ronald: 9.7 cm/sec MR max P.7 mmHg Ao max P.3 mmHg MARC(I,D): 2.49 cm Ao mean P.6 mmHg LV V1 mean: 65.9 cm/sec Ao V2 max: 160.0 cm/sec LV V1 mean P.08 mmHg TR max ronald: 227.2 cm/sec TR max P.6 mmHg Left Ventricle The left ventricular size, thickness and function are normal. Ejection Fraction = 55-60%. The transm itral spectral Doppler flow pattern is suggestive of impaired LV relaxation. Right Ventricle The right ventricle is normal in size and function. Atria The left atrium is mildly dilated. Right atrial size is normal. Mitral Valve The mitral valve is normal in structure and function. There is no mitral valve stenosis. There is mi ld mitral regurgitation. Tricuspid Valve The tricuspid valve is normal in structure and function. There is mild tricuspid regurgitation. Aortic Valve 1.25cm x 0.9xm echodensity on the left coronary cusp of the aortic valve which likely represents an area of focal/nodular calcification; less likely vegetation or mass. Clinical correlation required. No hemodynamically significant valvular aortic stenosis. No aortic regurgitation is present. Pulmonic Valve The pulmonic valve is not well seen, but is grossly normal. There is no pulmonic valvular stenosis. There is no pulmonic valvular regurgitation. Great Vessels The aortic root is normal size. Pericardium/Pleura There is no pericardial effusion. Summary Statements The left ventricular size, thickness and function are normal Ejection Fraction = 55-60%. The transmitral spectral Doppler flow pattern is suggestive of impaired LV relaxation. The right ventricle is normal in size and function. The left atrium is mildly dilated. There is mild mitral regurgitation. There is mild tricuspid regurgitation. 1.25cm x 0.9xm echodensity on the left coronary cusp of the aortic valve which likely represents an area of focal/nodular calcification; less likely vegetation or mass. Clinical correlation required. No aortic regurgitation is present. There is no pericardial effusion. MD Boss *Jake 03/06/2020, 1:58 PM Ordering Physician: Maria Teresa Edge Referring Physician: MARIA TERESA EDGE Performed By: Tahir Appiah
[2020-03-06 15:54] VITALS: BP 101/57; PULSE 77; TEMP 98.2
== END 2020-03-06 16:19 | DRG 816 ==
LOC: JER 12:23 → JERBED 14:29 → J4W 03-05 13:12
PROVIDERS: ADMIT Internal Medicine; ATTEND Internal Medicine
DX: T40.1X1A Poisoning by heroin, accidental (unintentional), initial encounter (principal); T43.641A Poisoning by ecstasy, accidental (unintentional), initial encounter; F17.210 Nicotine dependence, cigarettes, uncomplicated; N17.9 Acute kidney failure, unspecified; G93.40 Encephalopathy, unspecified; F10.20 Alcohol dependence, uncomplicated; F14.10 Cocaine abuse, uncomplicated; F11.10 Opioid abuse, uncomplicated; I10 Essential (primary) hypertension; F32.9 Major depressive disorder, single episode, unspecified; K21.9 Gastro-esophageal reflux disease without esophagitis; F39 Unspecified mood [affective] disorder; R74.0 Nonspecific elevation of levels of transaminase and lactic acid dehydrogenase [LDH]; G40.909 Epilepsy, unspecified, not intractable, without status epilepticus; J44.9 Chronic obstructive pulmonary disease, unspecified; D64.9 Anemia, unspecified; R41.82 Altered mental status, unspecified; E66.9 Obesity, unspecified; Z68.34 Body mass index [BMI] 34.0-34.9, adult; E87.5 Hyperkalemia; D69.6 Thrombocytopenia, unspecified
CPT/HCPCS: 36415; 36600; 70450-TC; 71045-TC-FY; 76775-TC; 76937; 80048; 80053; 80307; 81003; 82140; 82436; 82550; 82553; 82565; 82803; 82962; 83605; 84133; 84300; 84443; 84484; 85025; 85027; 85610; 85730; 86850; 86900; 86901; 87040; 87086; 93005; 93010; 93306-TC; 99285-25; U0003

== ENCOUNTER 2020-04-14 20:37 | Inpatient (IN) | payer OTHER ==
--- NOTE | 2020-04-14 21:08 | PDOC ---
Attending Attestation - Resident Resident Name: Aaliyah Malloy - ED Attending Attestation I have performed the following: I have examined & evaluated the patient, The case was reviewed & discussed with the resident, I agree w/resident's findings & plan - HPI HPI: 04/14/20 21:09 see resident hpi - Physicial Exam PE: 04/14/20 21:10 see resident exam - Critical Care Time Total Critical Care Time: 90 Critical Care Statement: The care of this patient involved high complexity decision making to prevent further life threatening deterioration of the patient's condition and/or to evaluate & treat vital organ system(s) failure or risk of failure. - Medical Decision Making 04/15/20 00:54 59-year-old male sent [facility] Patient found to be in acute renal failure with severe hyperkalemia Patient is a poor historian and has intermittent complaints of chest pain Due to altered mental status and poor communication plan for CT scan of the head chest abdomen and pelvis IV treatment of hyperkalemia and admission to telemetry service Discharge - Discharge Information Problems reviewed: Yes Clinical Impression/Diagnosis: Acute renal failure, Hyperkalemia, AMS (altered mental status) Condition: Fair - Follow up/Referral Referrals: Kayla Garcia MD [Primary Care Provider] - - Patient Discharge Instructions - Post Discharge Activity
--- NOTE | 2020-04-14 21:26 | PDOC ---
History of Present Illness - General Chief Complaint: Pain, Acute Stated Complaint: ABDOMINAL PAIN Time Seen by Provider: 04/14/20 21:08 History Source: Patient Exam Limitations: Other (AMS) - History of Present Illness Initial Comments: 04/14/20 21:24 59y M with PMH of PMH of polysubstance abuse & EtOH dependence Diabetes, Hepatitis C, HTN, Depression, GERD, presenting from [facility] for abdominal pain. History limited 2/2 AMS. Pt states he had abdominal pain yesterday, points to left side of abdomen. Per EMS, pt is presenting for abdominal pain 04/15/20 04:44 Of note, MA papers stated that pt is sent here for abnormal labs with elevated BUN and Cr 8.7. Past History - Medical History Allergies/Adverse Reactions: Allergies Allergy/AdvReac Type Severity Reaction Status Date / Time No Known Allergies Allergy Verified 04/14/20 21:09 Home Medications: Ambulatory Orders Clonidine HCl 0.1 mg PO BID 10/05/17 Famotidine [Pepcid] 20 mg PO DAILY 10/05/17 Quetiapine Fumarate [Seroquel -] 50 mg PO BID 10/05/17 Bupropion HCl [Wellbutrin Xl] 300 mg PO DAILY #30 tab.er.24h 03/06/20 Quetiapine Fumarate [Seroquel -] 200 mg PO HS #30 tab 03/06/20 Tamsulosin HCl [Flomax] 0.4 mg PO DAILY #30 cap.er.24h 03/06/20 Acetaminophen 2 tab PO Q4H PRN 04/15/20 Amlodipine Besylate [Norvasc -] 10 mg PO DAILY 04/15/20 Enalapril Maleate [Vasotec -] 10 mg PO DAILY 04/15/20 Levothyroxine [Synthroid -] 75 mcg PO DAILY 04/15/20 Melatonin 3 mg PO HS 04/15/20 Polyethylene Glycol 3350 [Miralax (For Daily Use) -] 17 gm PO DAILY 04/15/20 Tramadol HCl 50 mg PO Q6H PRN 04/15/20 Anemia: No Asthma: No Cancer: No Cardiac Disorders: No CVA: No COPD: No CHF: No DVT: No Dementia: No Diabetes: Yes (DOES NOT RECALL) GI Disorders: Yes (GERD, umblical) Disorders: No HTN: Yes Hypercholesterolemia: No Kidney Stones: No Liver Disease: No Psychiatric Problems: Yes (mood affective ds, psychoaffective ds, major depression) Seizures: No Thyroid Disease: No - Surgical History Abdominal Surgery: Yes (UMBLICAL HERNIA REPAIR) Appendectomy: No Cardiac Surgery: No Cholecystectomy: No Lung Surgery: No Neurologic Surgery: No Orthopedic Surgery: No - Psycho-Social/Smoking History Smoking History: Current every day smoker Have you smoked in the past 12 months: Yes Number of Cigarettes Smoked Daily: 5 Cigars Per Day: 0 Information on smoking cessation initiated: No 'Breaking Loose' booklet given: 03/05/20 - Substance Abuse Hx (Audit-C & DAST Scrn) How often the patient has a drink containing alcohol: Monthly or less Number of drinks the patient has on a typical day: 1 or 2 How often the patient has six or more drinks on one occasion: Less than monthly Score: In Men: 4 or > Positive; In Women: 3 or > Positive: 2 Screen Result (Pos requires Nsg. Audit-10AR): Negative In the last yr the pt used illegal drug/Rx for NonMed reason: Yes Score: Yes response is considered Positive: 1 Screen Result (Positive result requires Nsg. DAST-10): Positive Review of Systems - Review of Systems Able to Perform ROS?: Yes (limited 2/2 AMS) Cardiac (ROS): Yes: Chest Pain ABD/GI: Yes: Symptoms Reported *Physical Exam - Vital Signs Last Vital Signs Temp Pulse Resp BP Pulse Ox 98.3 F 85 19 100/59 L 96 04/14/20 20:45 04/14/20 20:45 04/14/20 20:45 04/14/20 20:45 04/14/20 20:45 - Physical Exam General Appearance: Yes: Nourished, Appropriately Dressed. No: Apparent Distress HEENT: positive: EOMI, MARRY, Normal ENT Inspection. negative: Scleral Icterus (R), Scleral Icterus (L) Neck: positive: Trachea midline, Supple Respiratory/Chest: positive: Lungs Clear, Normal Breath Sounds. negative: Decreased Breath Sounds, Paradoxal Breathing, Crackles, Rales, Rhonchi, Stridor Cardiovascular: positive: Regular Rhythm, Regular Rate, S1, S2. negative: Edema, JVD, Murmur Vascular Pulses: Dorsalis-Pedis (R): 1+, Doralis-Pedis (L): 1+ Gastrointestinal/Abdominal: positive: Normal Bowel Sounds, Soft, Protuberent. negative: Guarding, Rebound, Tenderness Extremity: positive: Pedal Edema Integumentary: positive: Normal Color, Dry, Warm. 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 negative: Fully Oriented ED Treatment Course - LABORATORY CBC & Chemistry Diagram: 04/14/20 23:00 04/15/20 03:41 - RADIOLOGY Radiology Studies Ordered: Category Date Time Status ABDOMEN & PELVIS CT WITH CONTR [CT] Stat CT Scan 04/14/20 21:[address] WITHOUT CONTRAST [CT] Stat CT Scan 04/14/20 21:12 Ordered CHEST X-RAY PORTABLE* [RAD] Stat Radiology 04/14/20 21:11 Ordered Medical Decision Making - Medical Decision Making 04/15/20 06:16 59y M with pMH of hep c, htn, polysubstance use presenting to the ER from [facility] for abnormal labs. pt is altered. vitals relatively hypotensive otherwise afebrile, not tachycardic pe; ams, distended abdomen, not tender. ddx includes electrolyte abnormality, pancreatitis/cholecystitis, mi, cvia/tia, hemorrhage, mass/malignancy, intox, infection -labs, ekg, cxr, ct -fluids cbc wnl, k 7.9, cr 8.7, bun elevated, elevated CK, trop negative. ekg: nsr at 96bpm, qtc 464, no jeanie or depressions. t waves appear peaked. -d50x2, insulin 10u, bicarb, lokelma, ns, calcium gluconate -renal consulted -icu consulted -CTAP: colonic stool burden otherwise no acute pathology CTH: no acute pathology CT chest: atelectasis. bgm; not hypoglycemic. will admit to icu Discharge - Discharge Information Problems reviewed: Yes Clinical Impression/Diagnosis: Hyperkalemia Acute renal failure Qualifiers: Acute renal failure type: unspecified Qualified Code(s): N17.9 - Acute kidney failure, unspecified AMS (altered mental status) Qualifiers: Altered mental status type: unspecified Qualified Code(s): R41.82 - Altered mental status, unspecified Rhabdomyolysis Qualifiers: Rhabdomyolysis type: non-traumatic Qualified Code(s): M62.82 - Rhabdomyolysis Condition: Fair - Admission Yes - Follow up/Referral - Patient Discharge Instructions - Post Discharge Activity
[2020-04-14 23:25] LABS: BASO % 0.4 % (0-2.0); EOS % 1.5 % (0-4.5); HEMOGLOBIN 11.1 GM/dL (11.7-16.9); LYMPH % 15.7 % (8-40); MCH 34.1 pg (25.7-33.7); MCHC 34.7 g/dl (32.0-35.9); MEAN CELL VOLUME 98.3 fl (80-96); MONO % 12.5 % (3.8-10.2); NEUT % 69.9 % (42.8-82.8); PLATELET COUNT 115 K/MM3 (134-434); RBC 3.25 M/mm3 (4.00-5.60); RDW 15.4 % (11.9-15.9); WHITE BLOOD COUNT 6.2 K/mm3 (4.0-10.0)
[2020-04-14 23:26] LABS: VENOUS BASE EXCESS -11.5 mmol/L (-2-2); VENOUS O2 SATURATION 71.5 % (70-80); VENOUS PCO2 35.5 mmHg (38-52); VENOUS PH 7.238 (7.310-7.410)
[2020-04-14 23:44] LABS: ALBUMIN 3.3 g/dl (3.4-5.0); ALK PHOS 135 U/L (45-117); BILIRUBIN,TOTAL 2.2 mg/dL (0.2-1); CALCIUM 7.8 mg/dL (8.5-10.1); CHLORIDE 99 mmol/L (98-107); GLUCOSE,RANDOM 80 mg/dL (74-106); LIPASE 748 U/L (73-393); SGOT/AST 271 U/L (15-37); SGPT/ALT 100 U/L (13-61); SODIUM 130 mmol/L (136-145); TOT PROT 8.6 g/dl (6.4-8.2)
[2020-04-15] LABS: INR 1.13 (0.83-1.09); PROTHROMBIN TIME (PATIENT) 13.3 SEC (9.7-13.0)
[2020-04-15 00:03] LABS: ACTIVATED PTT 36.6 SECONDS (25.2-36.5)
[2020-04-15 00:11] LABS: ANION GAP 16 MMOL/L (8-16); CO2 15 mmol/L (21-32)
[2020-04-15] MEDS ORDERED: SODIUM CHLORIDE 1,000 ML IV STA ×2 (00:29→00:51)
[2020-04-15 00:41] LABS: BLOOD UREA NITROGEN 129.2 mg/dL (7-18)
[2020-04-15 00:42] LABS: CREATININE 8.9 mg/dL (0.55-1.3); POTASSIUM 7.9 mmol/L (3.5-5.1)
[2020-04-15] MEDS ORDERED: DEXTROSE 50%-WATER - 25 GM/50 ML VIAL IVPUSH ONE ×4 (00:45→08:11)
[2020-04-15] MEDS ORDERED: CALCIUM GLUCONATE 10% - 1,000 MG/10 ML VIAL IVPUSH ONE (00:45)
[2020-04-15] MEDS ORDERED: INSULIN REGULAR HUMAN 100 UNITS/ML *VIAL IVPUSH ONE ×2 (00:45→08:43)
[2020-04-15] MEDS ORDERED: SODIUM BICARBONATE 8.4% 50 MEQ/50 ML DISP.SYRIN IVPUSH ONE (00:49)
[2020-04-15] MEDS ORDERED: INSULIN REGULAR HUMAN 100 UNITS/ML *VIAL SQ ONE (00:51)
[2020-04-15] MEDS ORDERED: CALCIUM GLUCONATE 10% - 1,000 MG/10 ML VIAL ONE (01:10)
[2020-04-15] MEDS ORDERED: DEXTROSE 50%-WATER - 25 GM/50 ML VIAL ONE ×2 (01:10→01:11)
[2020-04-15] MEDS ORDERED: SODIUM BICARBONATE 8.4% - 50 ML ONE (01:11)
[2020-04-15] MEDS ORDERED: SODIUM CHLORIDE 1,000 ML IV SCH (02:15)
--- NOTE | 2020-04-15 02:46 | CONSULT ---
Consultation: REQUESTING PROVIDER: CONSULT REQUEST: We have been asked to medically evaluate this patient for (specify). HISTORY OF PRESENT ILLNESS: This is a 59 y/o M with a PMHx of HTN, DM, GERD, PSA (cocaine and heroin), alcohol use disorder, Hepatitis C, Depression, CKD, (schizophrenia, bipolar disorder per discussion with nursing facility) presented from [facility] for having abnormal labs with elevated BUN and Cr 8.7. Discussed with [facility] staff. Pt has been confused and more "off" for the last two days. At baseline, he is very conversant and AAOX3. Pt's only complaint was chest pain and abdominal pain. REVIEW OF SYSTEMS: negative except as per above PHYSICAL EXAMINATION Vital Signs - 24 hr 04/14/20 04/14/20 20:45 21:10 Temperature 98.3 F Pulse Rate 85 Pulse Rate [ 83 Radial] Respiratory 19 19 Rate Blood Pressure 100/59 L Blood Pressure 109/64 [Left Arm] O2 Sat by Pulse 96 97 Oximetry (%) GENERAL: AAOX1 (name) in no acute distress. HEAD: Normal with no signs of trauma. constricted pupils LUNGS: Breath sounds equal, clear to auscultation bilaterally. No wheezes, and no crackles. No accessory muscle use. HEART: Regular rate and rhythm, normal S1 and S2 without murmur, rub or gallop. ABDOMEN: Soft, mild distention, LUQ TTP. nonrigid or tympanitic, hepatomegaly. LOWER EXTREMITIES: 2+ pulses, warm, well-perfused. No calf tenderness. b/l 2+ pitting edema worse on left side. : coronel catheter in place draining adarsh colored urine NEUROLOGICAL: unable to participate. disorganized speech. strength 5/5 UE b/l, strength 2/5 LE b/l. sensation b/l UE decreased, but intact. PSYCHIATRIC: Not cooperative. SKIN: Warm, dry, normal turgor, 1 cm laceration on L buttock Laboratory Results - last 24 hr 04/14/20 04/14/20 04/14/20 21:17 21:32 23:00 WBC RBC Hgb Hct MCV MCH MCHC RDW Plt Count MPV Absolute Neuts (auto) Neutrophils % Lymphocytes % Monocytes % Eosinophils % Basophils % Nucleated RBC % PT with INR 13.30 H INR 1.13 H PTT (Actin FS) 36.6 H VBG pH POC VBG pCO2 POC VBG pO2 VBG HCO3 VBG O2 Sat (Aylin) VBG Base Excess Sodium 130 L Potassium 7.9 H* Chloride 99 Carbon Dioxide 15 L Anion Gap 16 BUN 129.2 H* Creatinine 8.9 H* Est GFR (CKD-EPI)AfAm 6.86 Est GFR (CKD-EPI)NonAf 5.92 POC Glucometer 94 Random Glucose 80 Lactic Acid Calcium 7.8 L Total Bilirubin 2.2 H AST 271 H ALT 100 H Alkaline Phosphatase 135 H Ammonia Creatine Kinase 7252 H Creatine Kinase Index 0.2 CK-MB (CK-2) 14.8 H Troponin I < 0.02 Total Protein 8.6 H Albumin 3.3 L Lipase 748 H TSH 4.07 H D Salicylates Acetaminophen Blood Type Antibody Screen 04/14/20 04/14/20 04/14/20 23:00 23:00 23:00 WBC 6.2 RBC 3.25 L Hgb 11.1 L Hct 32.0 L MCV 98.3 H MCH 34.1 H MCHC 34.7 RDW 15.4 Plt Count 115 L D MPV 12.0 H D Absolute Neuts (auto) 4.3 Neutrophils % 69.9 D Lymphocytes % 15.7 D Monocytes % 12.5 H Eosinophils % 1.5 Basophils % 0.4 Nucleated RBC % 0 PT with INR INR PTT (Actin FS) VBG pH POC VBG pCO2 POC VBG pO2 VBG HCO3 VBG O2 Sat (Aylin) VBG Base Excess Sodium Potassium Chloride Carbon Dioxide Anion Gap BUN Creatinine Est GFR (CKD-EPI)AfAm Est GFR (CKD-EPI)NonAf POC Glucometer Random Glucose Lactic Acid Calcium Total Bilirubin AST ALT Alkaline Phosphatase Ammonia < 10.00 L Creatine Kinase Creatine Kinase Index CK-MB (CK-2) Troponin I Total Protein Albumin Lipase TSH Salicylates Acetaminophen Blood Type AB POSITIVE Antibody Screen Negative Active Medications Generic Name Dose Route Start Last Admin Trade Name Freq PRN Reason Stop Dose Admin Chlorhexidine Gluconate 1 applic 04/15/20 22:00 Hibiclens For Decolonization - TP HS FRANCINE Heparin Sodium (Porcine) 5,000 unit 04/15/20 06:00 Heparin - SQ TID FRANCINE Sodium Chloride 1,000 mls @ 75 mls/hr 04/15/20 02:15 Normal Saline - IV ASDIR FRANCINE Insulin Aspart 1 vial 04/15/20 07:00 Novolog Vial Sliding Scale - SQ ACHS [facility] Protocol Mupirocin 1 applic 04/15/20 10:00 Bactroban Ointment (For Decolonization) - NS 04/20/20 09:59 BID [facility] Sodium Zirconium Cyclosilicate 10 gm 04/15/20 10:00 Lokelma PO DAILY [facility] ASSESSMENT/PLAN: 59 YO M PMH of HTN, DM, GERD, polysubstance use disorder (cocaine and heroin), alcohol use disorder, Hepatitis C, Depression, presented from [facility] for abnormal labs. Found to have MOY, severe hyperkalemia, and utox positive for opiates and MDMA (ectasy) #Neuro Acute Metabolic Encephalopathy 2/2 Uremia Vs Ectasy use? AOX1 currently and at baseline per ED staff CTH: NO acute findings Utox: positive for opiates and MDMA (ectasy). Discussed with Poison Control; no recommendations at this time other than current medical management as pt has no signs of acute intoxication. -Speech & swallow consult, neuro checks, aspiration, fall risk precautions Ammonia <10 no concern for hepatic encephalopathy #Cardio: EKG: NSR, no acute ST changes, tall T wave on ekg trops negX2 QTC prolongation: 467. Avoid QTC prolonging medications Hold home BP medications given pt's current hypotension #Resp: no signs of an acute pulmonary pathology at this time -CT chest w/o contrast: NO acute findings. Mild Left lingula and b/l dependent subsegmental atelectasis; mild paraseptal emphysematous changes within Right lung apex #Renal: -MOY on CKD 2/2 rhabdomyolysis likely from dehydration VS metabolic acidosis vs ectasy (given CK not >15-20K) >BUN/Cr: 129.2/8.9 (Cr 1.4 on last admission) >UA: 3+ blood, no RBCs documented on UA. RBCs will be reviewed >Cr kinase 7252, CK MB 14.8 >HCO3- 15, repleted in ED with caution as it can bind to Calcium preventing the cardiac membrane from being stabilized. >FeNa >1%. Calculated >1.9% indicating intrinsic renal disease as likely cause of MOY >s/p 3 L NS. NS@175 ml/hr -Hyperkalemia:7.9 (admission)-> 6 after Rx >in ED, lokelma 10 gm PO daily ordered, s/p 10 UNITS Insulin sq & calcium gluconate 10% 1 gm IV PUSH as well as 30 gm kayexalate PO once ordered by ICU team as patient able to tolerate PO once arrived to ICU. >albuterol neb q4 PRN with monitoring for tachycardia -Hyponatremia: 130 (admission)-> 134, will rpt cmp in AM -Hyperuricemia 13.6: allopurinol 300 mg PO once -Hyperphosphatemia 11.6 -f/u Nephro consult likely will not require dialysis as K is not refractory to medical therapy so far #Endo TSH: 4.07 likely reactive - Ft4 sent #Heme Onc: -Hgb/Hct 11.1/32, MCV 98.3. anemia seen on previous admission -PT/INR 13.3/1.13. PTT: 36.6 - B12, folic acid sent - rpt cbc in AM #GI -AST/ALT: 271/100 (elevated at 209/152 on previous admission). PMH of alcohol use disorder/PSA abuse -CTAP: NO acute findings; hepatomegaly small calcified gallstones, large colonic burden, moderately distended bladder, small fat-containing b/l inguinal hernias; -ammonia < 10 no signs of hepatic encephalopathy #ID - pt not exhibiting any signs of sepsis, afebrile, no leukocytosis, not tachycardic - UA: trace leukocyte esterase, 1 WBC - no indication for abx at this time - COVID pending low suspicion #Psych h/o schizophrenia, bipolar disorder -continue with wellbutrin and seroquel #FEN NS@175 ml/hr monitor lytes NPO because patient was altered. will adjust pending speech and swallow consult #DVT Prophylaxis heparin 5,000 units SQ TID No need for GI ppx in this patient Dispo: We will continue to follow the patient. Thank you for this consultative opportunity. ATTENDING PHYSICIAN STATEMENT I saw and evaluated the patient. I reviewed the resident's note and discussed the case with the resident. I agree with the resident's findings and plan as documented. SUBJECTIVE: OBJECTIVE: ASSESSMENT AND PLAN:
[2020-04-15 03:15] LABS: EPI CELLS 2 /uL (0-25.1); HYALINE CASTS 3 /uL (0-3.1); URINE APPEARANCE CLOUDY; URINE BACTERIA 1 /uL (0-1359); URINE BILIRUBIN NEGATIVE (NEGATIVE); URINE COLOR YELLOW; URINE GLUCOSE (UA) NEGATIVE (NEGATIVE); URINE KETONE NEGATIVE (NEGATIVE); URINE LEUK ESTERASE TRACE (NEGATIVE); URINE NITRITE NEGATIVE (NEGATIVE); URINE PROTEIN NEGATIVE (NEGATIVE); URINE RBC REVIEW /uL (0-23.9); URINE UROBILINOGEN 0.2 mg/dL (0.2-1.0); URINE WBC 1 /uL (0-25.8)
[2020-04-15 03:20] LABS: COCAINE, UR NEGATIVE ng/ml (CUTOFF=300); METHADONE, UR NEGATIVE ng/ml (CUTOFF=300); PHENCYCLIDINE,URINE NEGATIVE ng/ml (CUTOFF=25); URINE AMPHETAMINES NEGATIVE ng/ml (CUTOFF=500); URINE BARBITURATES NEGATIVE ng/ml (CUTOFF=200); URINE BENZODIAZEPINES NEGATIVE ng/ml (CUTOFF=200)
[2020-04-15] MEDS ORDERED: ALBUTEROL SO4 0.083% IH SOL 2.5 MG/3 ML VIAL.NEB. NEB PRN (03:25)
[2020-04-15 04:03] LABS: OPIATES, URI POSITIVE ng/ml (CUTOFF=300)
[2020-04-15 04:16] LABS: CALCIUM 7.4 mg/dL (8.5-10.1)
[2020-04-15] MEDS ORDERED: SODIUM POLYSTYRENE SULFONATE 15 GM/60 ML BOTTLE RC ONE (04:20)
[2020-04-15] MEDS ORDERED: SODIUM POLYSTYRENE SULFONATE 15 GM/60 ML BOTTLE PO ONE (04:35)
[2020-04-15 04:37] LABS: BLOOD UREA NITROGEN 136.9 mg/dL (7-18); CREATININE 8.5 mg/dL (0.55-1.3)
[2020-04-15] MEDS: SODIUM CHLORIDE 1,000 ML IV SCH ×2 (04:55→07:53)
[2020-04-15 05:31] LABS: PHOSPHOROUS 11.6 mg/dL (2.5-4.9); URIC ACID 13.6 mg/dL (2.6-7.2)
[2020-04-15] MEDS ORDERED: SODIUM CHLORIDE 500 ML IV STA (05:39)
[2020-04-15] MEDS ORDERED: RASBURICASE 7.5 MG in SODIUM CHLORIDE 50 ML IVPB ONE (05:48)
[2020-04-15] MEDS ORDERED: ALLOPURINOL 300 MG TABLET (FP) PO ONE (05:50)
[2020-04-15] MEDS ORDERED: FOLIC ACID INJECTION - 1 MG, THIAMINE HCL 100 MG, MULTIVIT INJECTION ADULT 10 ML in SOD... IVPB ONE (06:00)
[2020-04-15] MEDS ORDERED: DEXTROSE 50%-WATER 25 GM/50 ML DISP.SYRIN ONE ×2 (06:32→08:21)
[2020-04-15 07:11] LABS: BASO % 0.6 % (0-2.0); EOS % 2.7 % (0-4.5); HEMOGLOBIN 9.3 GM/dL (11.7-16.9); LYMPH % 19.7 % (8-40); MCH 33.3 pg (25.7-33.7); MCHC 34.3 g/dl (32.0-35.9); MEAN CELL VOLUME 97.2 fl (80-96); MEAN PLT VOLUME 11.7 fl (7.5-11.1); MONO % 15.5 % (3.8-10.2); NEUT % 61.5 % (42.8-82.8); PLATELET COUNT 99 K/MM3 (134-434); RBC 2.78 M/mm3 (4.00-5.60); RDW 14.8 % (11.9-15.9); WHITE BLOOD COUNT 5.4 K/mm3 (4.0-10.0)
[2020-04-15 07:37] LABS: ALBUMIN 2.2 g/dl (3.4-5.0); BILIRUBIN,TOTAL 1.9 mg/dL (0.2-1)
[2020-04-15] MEDS: HEPARIN NA (PORCINE) 5,000 UNITS/ML 1ML VIAL SQ SCH ×3 (07:57→22:07)
[2020-04-15] MEDS: INSULIN SLIDING SCALE (NOVOLOG) 1 VIAL SQ SCH ×4 (07:57→21:30)
[2020-04-15 08:00] LABS: TOT PROT 6.5 g/dl (6.4-8.2)
[2020-04-15 08:11] LABS: BLOOD UREA NITROGEN 134.7 mg/dL (7-18); CALCIUM 6.6 mg/dL (8.5-10.1); CREATININE 8.5 mg/dL (0.55-1.3); POTASSIUM 6.3 mmol/L (3.5-5.1)
[2020-04-15] MEDS: DEXTROSE 5%-NORMAL SALINE 1,000 ML IV SCH ×2 (08:35→16:23)
[2020-04-15] MEDS ORDERED: ALBUTEROL SO4 0.083% IH SOL 2.5 MG/3 ML VIAL.NEB. NEB ONE (08:40)
[2020-04-15] MEDS ORDERED: INSULIN REGULAR HUMAN 100 UNITS/ML *VIAL ONE (08:46)
[2020-04-15] MEDS ORDERED: MIDAZOLAM HCL 2 MG/2 ML SINGLE DOSE VIAL IVPUSH ONE (09:26)
[2020-04-15] MEDS ORDERED: QUEtiapine FUMARATE 50 MG TABLET PO SCH (10:00)
--- NOTE | 2020-04-15 10:04 | EKG ---
Test Reason : Blood Pressure : / mmHG Vent. Rate : 096 BPM Atrial Rate : 096 BPM P-R Int : 192 ms QRS Dur : 112 ms QT Int : 368 ms P-R-T Axes : 075 -08 036 degrees QTc Int : 464 ms NORMAL SINUS RHYTHM NORMAL ECG WHEN COMPARED WITH ECG OF 04-MAR-2020 13:13, QRS DURATION HAS INCREASED Confirmed by MD Luis Daniel ([id number]) on 04/15/2020 10:03:52 AM Referred By: Confirmed By:Yasir Luis MD
--- NOTE | 2020-04-15 10:22 | CONSULT ---
Admitting History and Physical - Admission History of Present Illness: 59 YO M PMH of HTN, DM, GERD, polysubstance use disorder (cocaine and heroin), alcohol use disorder, Hepatitis C, Depression, presented from [facility] for abnormal labs. Found to have MOY, severe hyperkalemia, and utox positive for opiates and MDMA (ectasy) #Neuro Acute Metabolic Encephalopathy 2/2 Uremia Vs Ectasy use? Selected Entries 04/14/20 04/14/20 04/15/20 20:45 21:10 02:00 Breakfast Temperature 98.3 F Pulse Rate 85 Pulse Rate [ 83 95 H Radial] Blood Pressure 100/59 L Blood Pressure 109/64 112/68 [Left Arm] 04/15/20 04/15/20 04/15/20 03:30 04:00 07:30 Breakfast Temperature 97.5 F L 98.2 F Pulse Rate 99 H 74 Pulse Rate [ 94 H Radial] Blood Pressure 109/60 97/61 Blood Pressure 104/61 [Left Arm] 04/15/20 04/15/20 04/15/20 07:56 08:34 09:30 Breakfast Temperature 97.6 F Pulse Rate Pulse Rate [ Radial] Blood Pressure 89/61 L 94/64 Blood Pressure [Left Arm] 04/15/20 04/15/20 09:52 09:57 Breakfast NPO Temperature Pulse Rate 84 Pulse Rate [ Radial] Blood Pressure Blood Pressure [Left Arm] Laboratory Tests 04/15/20 06:20 WBC 5.4 Laboratory Tests 04/15/20 02:20 COVID-19 (ISMA) Pending NPO Seen in ICU, lethargic, pending HD,received IV meds, sedated, speech slurred, altered. - Past Medical History [employer]: Yes: Seizure Cardiovascular: Yes: HTN Pulmonary: Yes: COPD Hepatobiliary: Yes: Hepatitis C Heme/Onc: Yes: Anemia, Thrombocytopenia - Smoking History Smoking history: Current every day smoker Have you smoked in the past 12 months: Yes Aproximately how many cigarettes per day: 5 - Alcohol/Substance Use Hx Alcohol Use: No History - Admission Reason For Visit: RENAL FAILURE, RHABDOMYOYSIS, ALTERED MENTAL STATU - Hearing Hearing: Normal Hearing Aide: No Speech Evaluation - Communication Primary Language: DUTCH - Swallow Evaluation/Bedside Assessment Current Nutritional Intake: NPO Recommendations - Speech Evaluation, Impression/Plan Impression: lethargic, pending HD,received IV meds, sedated, speech slurred, altered. - Dysphagia Impressions/Plan Swallowing Skills: Impaired Dysphagia Impressions: Risk of Aspiration, Too Lethargic to Assess *Silent aspiration: cannot be R/O at bedside Recommendations: Other (to assess as mental status improves) - Recommendations Diet Consistency: NPO
[2020-04-15] MEDS: SODIUM ZIRCONIUM CYCLOSILICATE (LOKELMA) 5 GM PACKET PO SCH ×2 (10:25→15:20)
[2020-04-15] MEDS: FAMOTIDINE 20 MG TABLET PO SCH ×2 (10:26→15:20)
[2020-04-15] MEDS: LEVOTHYROXINE NA 75 MCG TABLET (FP) PO SCH ×2 (10:26→15:21)
--- NOTE | 2020-04-15 10:29 | CONSULT ---
Consultation: REQUESTING PROVIDER: Dr. Palomares CONSULT REQUEST: We have been asked to medically evaluate this patient for MOY and rhabdo. HISTORY OF PRESENT ILLNESS: Pt is a 59 y/o male with CKD (~stage 3), HTN, NIDDM, GERD, alcohol use disorder, polysubstance use disorder (heroin, cocaine), hepatitis C, bipolar disorder, schizophrenia who presents from [facility] for having abnormal labs with Cr 8.7. He also reported abdominal pain to EMS. Pt is able to provide minimal hx. He reports feeling chills and left forearm pain. Per chart, pt was hyperkalemic to 7.9 at presentation with peaked T-waves, Cr 8.9, other electrolyte abdnormalities, CK 7252. I tried to reach out to 2 contacts in chart for further history, but there was no answer. REVIEW OF SYSTEMS: CONSTITUTIONAL: Present: chills HEENT: Absent: rhinorrhea, nasal congestion CARDIOVASCULAR: Absent: chest pain, palpitations RESPIRATORY: Absent: shortness of breath GASTROINTESTINAL: Present: abdominal pain Absent: nausea, vomiting MUSCULOSKELETAL: Present: arm pain SKIN: Absent: rash, itching ENDOCRINE: Absent: unexplained weight gain, unexplained weight loss NEUROLOGIC: Absent: headache PHYSICAL EXAMINATION Vital Signs - 24 hr 04/14/20 04/14/20 04/15/20 20:45 21:10 02:00 Temperature 98.3 F Pulse Rate 85 Pulse Rate [ 83 95 H Radial] Respiratory 19 19 21 H Rate Blood Pressure 100/59 L Blood Pressure 109/64 112/68 [Left Arm] O2 Sat by Pulse 96 97 98 Oximetry (%) 04/15/20 04/15/20 04/15/20 03:30 04:00 07:30 Temperature 97.5 F L 98.2 F Pulse Rate 99 H 74 Pulse Rate [ 94 H Radial] Respiratory 18 18 18 Rate Blood Pressure 109/60 97/61 Blood Pressure 104/61 [Left Arm] O2 Sat by Pulse 97 97 100 Oximetry (%) 04/15/20 04/15/20 04/15/20 07:56 08:34 08:53 Temperature 97.6 F Pulse Rate Pulse Rate [ Radial] Respiratory Rate Blood Pressure 89/61 L Blood Pressure [Left Arm] O2 Sat by Pulse 100 Oximetry (%) 04/15/20 04/15/20 04/15/20 09:30 09:52 10:00 Temperature Pulse Rate 84 Pulse Rate [ Radial] Respiratory 16 Rate Blood Pressure 94/64 84/51 L Blood Pressure [Left Arm] O2 Sat by Pulse Oximetry (%) 04/15/20 10:25 Temperature Pulse Rate 76 Pulse Rate [ Radial] Respiratory 14 Rate Blood Pressure Blood Pressure [Left Arm] O2 Sat by Pulse Oximetry (%) GENERAL: Awake and alert, in mild distress. Moans when examined. HEAD: Normal with no signs of trauma. EYES: PERRL, EOMI. EARS, NOSE, THROAT: Ears normal, nares patent, moist mucous membranes. NECK: Normal range of motion. LUNGS: CTAB, no crackles noted. HEART: RRR, no murmur. ABDOMEN: Mild distention, normal bowel sounds, tympany on percussion. MUSCULOSKELETAL: Normal range of motion at all joints. UPPER EXTREMITIES: Cool to touch, IV in left forearm, not infiltrated. LOWER EXTREMITIES: Warm, well-perfused, +1 pitting edema b/l feel and ankles, trace to knees NEUROLOGICAL: Cranial nerves II-XII grossly intact. Normal speech. PSYCHIATRIC: Cooperative. Good eye contact. Appropriate mood and affect. SKIN: Warm, dry, normal turgor. Laboratory Results - last 24 hr 04/14/20 04/14/20 04/14/20 21:17 21:32 23:00 WBC RBC Hgb Hct MCV MCH MCHC RDW Plt Count MPV Absolute Neuts (auto) Neutrophils % Lymphocytes % Monocytes % Eosinophils % Basophils % Nucleated RBC % PT with INR 13.30 H INR 1.13 H PTT (Actin FS) 36.6 H VBG pH POC VBG pCO2 POC VBG pO2 VBG HCO3 VBG O2 Sat (Aylin) VBG Base Excess Sodium 130 L Potassium 7.9 H* Chloride 99 Carbon Dioxide 15 L Anion Gap 16 BUN 129.2 H* Creatinine 8.9 H* Est GFR (CKD-EPI)AfAm 6.86 Est GFR (CKD-EPI)NonAf 5.92 POC Glucometer 94 Random Glucose 80 Hemoglobin A1c % Serum Osmolality Lactic Acid Uric Acid Calcium 7.8 L Phosphorus Magnesium Ferritin Total Bilirubin 2.2 H AST 271 H ALT 100 H Alkaline Phosphatase 135 H Ammonia Creatine Kinase 7252 H Creatine Kinase Index 0.2 CK-MB (CK-2) 14.8 H Troponin I < 0.02 Total Protein 8.6 H Albumin 3.3 L Lipase 748 H TSH 4.07 H D Free T4 Urine Color Urine Appearance Urine pH Ur Specific [place] Urine Protein Urine Glucose (UA) Urine Ketones Urine Blood Urine Nitrite Urine Bilirubin Urine Urobilinogen Ur Leukocyte Esterase Urine WBC (Auto) Urine RBC (Auto) Urine Casts (Auto) U Epithel Cells (Auto) Urine Bacteria (Auto) Urine Osmolality Ur Random Creatinine U Random Total Protein Ur Random Sodium Ur Random Chloride Salicylates Opiates Screen Methadone Screen Acetaminophen Barbiturate Screen Phencyclidine Screen Ur Amphetamines Screen MDMA (Ecstasy) Screen Benzodiazepines Screen Cocaine Screen U Marijuana (THC) Screen Blood Type Antibody Screen 04/14/20 04/14/20 04/14/20 23:00 23:00 23:00 WBC 6.2 RBC 3.25 L Hgb 11.1 L Hct 32.0 L MCV 98.3 H MCH 34.1 H MCHC 34.7 RDW 15.4 Plt Count 115 L D MPV 12.0 H D Absolute Neuts (auto) 4.3 Neutrophils % 69.9 D Lymphocytes % 15.7 D Monocytes % 12.5 H Eosinophils % 1.5 Basophils % 0.4 Nucleated RBC % 0 PT with INR INR PTT (Actin FS) VBG pH POC VBG pCO2 POC VBG pO2 VBG HCO3 VBG O2 Sat (Aylin) VBG Base Excess Sodium Potassium Chloride Carbon Dioxide Anion Gap BUN Creatinine Est GFR (CKD-EPI)AfAm Est GFR (CKD-EPI)NonAf POC Glucometer Random Glucose Hemoglobin A1c % Serum Osmolality Lactic Acid Uric Acid Calcium Phosphorus Magnesium Ferritin Total Bilirubin AST ALT Alkaline Phosphatase Ammonia < 10.00 L Creatine Kinase Creatine Kinase Index CK-MB (CK-2) Troponin I Total Protein Albumin Lipase TSH Free T4 Urine Color Urine Appearance Urine pH Ur Specific [place] Urine Protein Urine Glucose (UA) Urine Ketones Urine Blood Urine Nitrite Urine Bilirubin Urine Urobilinogen Ur Leukocyte Esterase Urine WBC (Auto) Urine RBC (Auto) Urine Casts (Auto) U Epithel Cells (Auto) Urine Bacteria (Auto) Urine Osmolality Ur Random Creatinine U Random Total Protein Ur Random Sodium Ur Random Chloride Salicylates Opiates Screen Methadone Screen Acetaminophen Barbiturate Screen Phencyclidine Screen Ur Amphetamines Screen MDMA (Ecstasy) Screen Benzodiazepines Screen Cocaine Screen U Marijuana (THC) Screen Blood Type AB POSITIVE Antibody Screen Negative 04/14/20 04/14/20 04/14/20 23:00 23:00 23:00 WBC RBC Hgb Hct MCV MCH MCHC RDW Plt Count MPV Absolute Neuts (auto) Neutrophils % Lymphocytes % Monocytes % Eosinophils % Basophils % Nucleated RBC % PT with INR INR PTT (Actin FS) VBG pH 7.238 L POC VBG pCO2 35.5 L POC VBG pO2 43.4 VBG HCO3 14.8 L VBG O2 Sat (Aylin) 71.5 VBG Base Excess -11.5 L Sodium Potassium Chloride Carbon Dioxide Anion Gap BUN Creatinine Est GFR (CKD-EPI)AfAm Est GFR (CKD-EPI)NonAf POC Glucometer Random Glucose Hemoglobin A1c % Serum Osmolality Lactic Acid 1.2 Uric Acid Calcium Phosphorus Magnesium Ferritin Total Bilirubin AST ALT Alkaline Phosphatase Ammonia Creatine Kinase Creatine Kinase Index CK-MB (CK-2) Troponin I Total Protein Albumin Lipase TSH Free T4 Urine Color Urine Appearance Urine pH Ur Specific [place] Urine Protein Urine Glucose (UA) Urine Ketones Urine Blood Urine Nitrite Urine Bilirubin Urine Urobilinogen Ur Leukocyte Esterase Urine WBC (Auto) Urine RBC (Auto) Urine Casts (Auto) U Epithel Cells (Auto) Urine Bacteria (Auto) Urine Osmolality Ur Random Creatinine U Random Total Protein Ur Random Sodium Ur Random Chloride Salicylates < 1.7 L Opiates Screen Methadone Screen Acetaminophen < 2.0 Barbiturate Screen Phencyclidine Screen Ur Amphetamines Screen MDMA (Ecstasy) Screen Benzodiazepines Screen Cocaine Screen U Marijuana (THC) Screen Blood Type Antibody Screen 04/15/20 04/15/20 04/15/20 02:20 02:20 02:20 WBC RBC Hgb Hct MCV MCH MCHC RDW Plt Count MPV Absolute Neuts (auto) Neutrophils % Lymphocytes % Monocytes % Eosinophils % Basophils % Nucleated RBC % PT with INR INR PTT (Actin FS) VBG pH POC VBG pCO2 POC VBG pO2 VBG HCO3 VBG O2 Sat (Aylin) VBG Base Excess Sodium Potassium Chloride Carbon Dioxide Anion Gap BUN Creatinine Est GFR (CKD-EPI)AfAm Est GFR (CKD-EPI)NonAf POC Glucometer Random Glucose Hemoglobin A1c % Serum Osmolality Lactic Acid Uric Acid Calcium Phosphorus Magnesium Ferritin Total Bilirubin AST ALT Alkaline Phosphatase Ammonia Creatine Kinase Creatine Kinase Index CK-MB (CK-2) Troponin I Total Protein Albumin Lipase TSH Free T4 Urine Color Yellow Urine Appearance Cloudy Urine pH 5.0 Ur Specific [place] 1.013 Urine Protein Negative Urine Glucose (UA) Negative Urine Ketones Negative Urine Blood 3+ H Urine Nitrite Negative Urine Bilirubin Negative Urine Urobilinogen 0.2 Ur Leukocyte Esterase Trace Urine WBC (Auto) 1 Urine RBC (Auto) Review A* Urine Casts (Auto) 3 U Epithel Cells (Auto) 2 Urine Bacteria (Auto) 1 Urine Osmolality 330 Ur Random Creatinine 107.0 U Random Total Protein 33.4 H Ur Random Sodium 32 L Ur Random Chloride < 11 L Salicylates Opiates Screen Positive A* Methadone Screen Negative Acetaminophen Barbiturate Screen Negative Phencyclidine Screen Negative Ur Amphetamines Screen Negative MDMA (Ecstasy) Screen Positive A* Benzodiazepines Screen Negative Cocaine Screen Negative U Marijuana (THC) Screen Negative Blood Type Antibody Screen 04/15/20 04/15/20 04/15/20 03:09 03:41 03:41 WBC RBC Hgb Hct MCV MCH MCHC RDW Plt Count MPV Absolute Neuts (auto) Neutrophils % Lymphocytes % Monocytes % Eosinophils % Basophils % Nucleated RBC % PT with INR INR PTT (Actin FS) VBG pH POC VBG pCO2 POC VBG pO2 VBG HCO3 VBG O2 Sat (Aylin) VBG Base Excess Sodium 134 L Potassium 6.0 H Chloride 103 Carbon Dioxide 15 L Anion Gap 16 BUN 136.9 H* Creatinine 8.5 H* Est GFR (CKD-EPI)AfAm 7.25 Est GFR (CKD-EPI)NonAf 6.26 POC Glucometer 116 Random Glucose 93 Hemoglobin A1c % Serum Osmolality 331 H Lactic Acid Uric Acid 13.6 H* Calcium 7.4 L Phosphorus 11.6 H* Magnesium 3.0 H Ferritin Total Bilirubin AST ALT Alkaline Phosphatase Ammonia Creatine Kinase Creatine Kinase Index CK-MB (CK-2) Troponin I Total Protein Albumin Lipase TSH Free T4 Urine Color Urine Appearance Urine pH Ur Specific [place] Urine Protein Urine Glucose (UA) Urine Ketones Urine Blood Urine Nitrite Urine Bilirubin Urine Urobilinogen Ur Leukocyte Esterase Urine WBC (Auto) Urine RBC (Auto) Urine Casts (Auto) U Epithel Cells (Auto) Urine Bacteria (Auto) Urine Osmolality Ur Random Creatinine U Random Total Protein Ur Random Sodium Ur Random Chloride Salicylates Opiates Screen Methadone Screen Acetaminophen Barbiturate Screen Phencyclidine Screen Ur Amphetamines Screen MDMA (Ecstasy) Screen Benzodiazepines Screen Cocaine Screen U Marijuana (THC) Screen Blood Type Antibody Screen 04/15/20 04/15/20 04/15/20 03:41 06:20 06:20 WBC 5.4 RBC 2.78 L Hgb 9.3 L Hct 27.0 L D MCV 97.2 H MCH 33.3 MCHC 34.3 RDW 14.8 Plt Count 99 L MPV 11.7 H Absolute Neuts (auto) 3.3 Neutrophils % 61.5 Lymphocytes % 19.7 D Monocytes % 15.5 H Eosinophils % 2.7 Basophils % 0.6 Nucleated RBC % 0 PT with INR INR PTT (Actin FS) VBG pH POC VBG pCO2 POC VBG pO2 VBG HCO3 VBG O2 Sat (Aylin) VBG Base Excess Sodium 135 L Potassium 6.3 H* Chloride 107 Carbon Dioxide 13 L Anion Gap 15 BUN 134.7 H* Creatinine 8.5 H* Est GFR (CKD-EPI)AfAm 7.25 Est GFR (CKD-EPI)NonAf 6.26 POC Glucometer Random Glucose 47 L* Hemoglobin A1c % Serum Osmolality Lactic Acid Uric Acid Calcium 6.6 L* Phosphorus Cancelled Magnesium Cancelled Ferritin Total Bilirubin 1.9 H AST 204 H ALT 79 H Alkaline Phosphatase 98 Ammonia Creatine Kinase 5351 H Creatine Kinase Index 0.1 CK-MB (CK-2) 10.3 H Troponin I < 0.02 Total Protein 6.5 Albumin 2.2 L Lipase TSH Free T4 Urine Color Urine Appearance Urine pH Ur Specific [place] Urine Protein Urine Glucose (UA) Urine Ketones Urine Blood Urine Nitrite Urine Bilirubin Urine Urobilinogen Ur Leukocyte Esterase Urine WBC (Auto) Urine RBC (Auto) Urine Casts (Auto) U Epithel Cells (Auto) Urine Bacteria (Auto) Urine Osmolality Ur Random Creatinine U Random Total Protein Ur Random Sodium Ur Random Chloride Salicylates Opiates Screen Methadone Screen Acetaminophen Barbiturate Screen Phencyclidine Screen Ur Amphetamines Screen MDMA (Ecstasy) Screen Benzodiazepines Screen Cocaine Screen U Marijuana (THC) Screen Blood Type Antibody Screen 04/15/20 04/15/20 04/15/20 06:20 06:20 06:20 WBC RBC Hgb Hct MCV MCH MCHC RDW Plt Count MPV Absolute Neuts (auto) Neutrophils % Lymphocytes % Monocytes % Eosinophils % Basophils % Nucleated RBC % PT with INR INR PTT (Actin FS) VBG pH POC VBG pCO2 POC VBG pO2 VBG HCO3 VBG O2 Sat (Aylin) VBG Base Excess Sodium Potassium Chloride Carbon Dioxide Anion Gap BUN Creatinine Est GFR (CKD-EPI)AfAm Est GFR (CKD-EPI)NonAf POC Glucometer Random Glucose Hemoglobin A1c % 4.5 Serum Osmolality Lactic Acid Uric Acid Calcium Phosphorus Magnesium Ferritin 996.2 H Total Bilirubin AST ALT Alkaline Phosphatase Ammonia Creatine Kinase Creatine Kinase Index CK-MB (CK-2) Troponin I Total Protein Albumin Lipase TSH Free T4 0.91 Urine Color Urine Appearance Urine pH Ur Specific [place] Urine Protein Urine Glucose (UA) Urine Ketones Urine Blood Urine Nitrite Urine Bilirubin Urine Urobilinogen Ur Leukocyte Esterase Urine WBC (Auto) Urine RBC (Auto) Urine Casts (Auto) U Epithel Cells (Auto) Urine Bacteria (Auto) Urine Osmolality Ur Random Creatinine U Random Total Protein Ur Random Sodium Ur Random Chloride Salicylates Opiates Screen Methadone Screen Acetaminophen Barbiturate Screen Phencyclidine Screen Ur Amphetamines Screen MDMA (Ecstasy) Screen Benzodiazepines Screen Cocaine Screen U Marijuana (THC) Screen Blood Type Antibody Screen 04/15/20 04/15/20 06:30 09:39 WBC RBC Hgb Hct MCV MCH MCHC RDW Plt Count MPV Absolute Neuts (auto) Neutrophils % Lymphocytes % Monocytes % Eosinophils % Basophils % Nucleated RBC % PT with INR INR PTT (Actin FS) VBG pH POC VBG pCO2 POC VBG pO2 VBG HCO3 VBG O2 Sat (Aylin) VBG Base Excess Sodium Potassium Chloride Carbon Dioxide Anion Gap BUN Creatinine Est GFR (CKD-EPI)AfAm Est GFR (CKD-EPI)NonAf POC Glucometer 41 112 Random Glucose Hemoglobin A1c % Serum Osmolality Lactic Acid Uric Acid Calcium Phosphorus Magnesium Ferritin Total Bilirubin AST ALT Alkaline Phosphatase Ammonia Creatine Kinase Creatine Kinase Index CK-MB (CK-2) Troponin I Total Protein Albumin Lipase TSH Free T4 Urine Color Urine Appearance Urine pH Ur Specific [place] Urine Protein Urine Glucose (UA) Urine Ketones Urine Blood Urine Nitrite Urine Bilirubin Urine Urobilinogen Ur Leukocyte Esterase Urine WBC (Auto) Urine RBC (Auto) Urine Casts (Auto) U Epithel Cells (Auto) Urine Bacteria (Auto) Urine Osmolality Ur Random Creatinine U Random Total Protein Ur Random Sodium Ur Random Chloride Salicylates Opiates Screen Methadone Screen Acetaminophen Barbiturate Screen Phencyclidine Screen Ur Amphetamines Screen MDMA (Ecstasy) Screen Benzodiazepines Screen Cocaine Screen U Marijuana (THC) Screen Blood Type Antibody Screen Active Medications Generic Name Dose Route Start Last Admin Trade Name Freq PRN Reason Stop Dose Admin Albuterol Sulfate 1 amp 04/15/20 03:25 Ventolin 0.083% Nebulizer Soln - NEB Q4H PRN SHORT OF BREATH/WHEEZING Bupropion HCl 300 mg 04/15/20 10:00 04/15/20 10:26 Wellbutrin Xl - PO Not Given DAILY FRANCINE Chlorhexidine Gluconate 1 applic 04/15/20 22:00 Hibiclens For Decolonization - TP HS FRANCINE Famotidine 20 mg 04/15/20 10:00 04/15/20 10:26 Pepcid - PO Not Given DAILY FRANCINE Heparin Sodium (Porcine) 5,000 unit 04/15/20 06:00 04/15/20 07:57 Heparin - SQ 5,000 unit TID FRANCINE Administration Dextrose/Sodium Chloride 1,000 mls @ 125 mls/hr 04/15/20 08:15 04/15/20 08:35 D5-Ns - IV 125 mls/hr ASDIR FRANCINE Administration Insulin Aspart 1 vial 04/15/20 07:00 04/15/20 07:57 Novolog Vial Sliding Scale - SQ Not Given ACHS [facility] Protocol Levothyroxine Sodium 75 mcg 04/15/20 10:00 04/15/20 10:26 Synthroid - PO Not Given 0700 FRANCINE Melatonin 3 mg 04/15/20 22:00 Melatonin PO HS FRANCINE Mupirocin 1 applic 04/15/20 10:00 Bactroban Ointment (For Decolonization) - NS 04/20/20 09:59 BID FRANCINE Quetiapine Fumarate 50 mg 04/15/20 10:00 Seroquel - PO BID FRANCINE Quetiapine Fumarate 200 mg 04/15/20 22:00 Seroquel - PO HS [facility] Sodium Zirconium Cyclosilicate 10 gm 04/15/20 10:00 04/15/20 10:25 Lokelma PO Not Given DAILY [facility] ASSESSMENT/PLAN: Pt is a 59 y/o male with CKD (~stage 3), HTN, NIDDM, GERD, alcohol use disorder, polysubstance use disorder (heroin, cocaine), hepatitis C, bipolar disorder, schizophrenia who presents from [facility] for having abnormal labs with Cr 8.7. He is admitted for electrolyte abnormalities and altered mental status. #acute metabolic encephalopathy 2/2 electrolyte abnormalities -tried to gather more information on pt's time before arrival but was unsuccessful #hyperkalemia -continue Lokelma -continue albuterol -dialyze today, consent obtained from family given pt's AMS -monitor labs -monitor tele/EKG for t waves #MOY on CKD -Cr 8.9 on presentation, last admission near 2 -order KARINA, ANCA, Anti GBM, SPEP, Hep B and C -try to order C3 and C4 if possible (usually outpatient order) #rhabdomyolysis possibly 2/2 MDMA use -UA shows hematuria, CK elevated -continue D5/NS for rhabdo -elevated total urine protein -decreased urine Na and Cl #hepatitis C -hep panel #HTN -has been normo/hypotensive -will monitor #NIDDM -SSI as needed (has been hypoglycemic) -BGMs #polysubstance use disorder -on Seroquel, could be false positive for opiates, as well as prolong QTc -on Wellbutrin, could be false positive for MDMA Dispo: We will continue to follow the patient. Thank you for this consultative opportunity. Visit type - Emergency Visit Emergency Visit: Yes ED Registration Date: 04/15/20 Care time: The patient presented to the Emergency Department on the above date and was hospitalized for further evaluation of their emergent condition. - New Patient This patient is new to me today: Yes Date on this admission: 04/15/20 - Critical Care Critical Care patient: Yes Total Critical Care Time (in minutes): 37 Critical Care Statement: The care of this patient involved high complexity decision making to prevent further life threatening deterioration of the patient's condition and/or to evaluate & treat vital organ system(s) failure or risk of failure. ATTENDING PHYSICIAN STATEMENT I saw and evaluated the patient. I reviewed the resident's note and discussed the case with the resident. I agree with the resident's findings and plan as documented. SUBJECTIVE: OBJECTIVE: ASSESSMENT AND PLAN:
[2020-04-15] MEDS ORDERED: SODIUM CHLORIDE 250 ML IV PRN (11:16)
[2020-04-15 11:24] LABS: ARTERIAL BLD GAS O2 SATURATION 98.3 mmHg (95-98); ARTERIAL BLOOD GAS BASE EXCESS -11.3 mmol/L (-2-2); ARTERIAL BLOOD GAS PO2 129.9 mmHg (80-100); ARTERIAL BLOOD GAS pH 7.278 (7.350-7.450)
[2020-04-15 11:27] LABS: ALLENS TEST POSITIVE
--- NOTE | 2020-04-15 12:04 | HP ---
Admitting History and Physical - Primary Care Physician PCP: Kayla Garcia - Admission Chief Complaint: AMS History of Present Illness: 59 yrs old male sent from [facility] for abnormal labs and AMS-- creatinine was 8.7 in [place] labs Pt appeared more letahrgic per [place] Baseline-- wheelchair, walks with cane at times, AAOx 3 In ER was found to be in acute renal failure, elevated LFT , rhabdomyolysis., hypokalemia Pt examined in ICU-- not coherent awake, but not a good historian C/o stomach pain no nausea Spoke with Renal-- arranging pt to be dialysed today History Source: Transfer Record - Past Medical History 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 HAND: Yes: Seizure Cardiovascular: Yes: HTN Pulmonary: Yes: COPD Hepatobiliary: Yes: Hepatitis C Heme/Onc: Yes: Anemia, Thrombocytopenia - Smoking History Smoking history: Current every day smoker Have you smoked in the past 12 months: Yes Aproximately how many cigarettes per day: 5 - Alcohol/Substance Use Hx Alcohol Use: No Home Medications - Allergies Allergies/Adverse Reactions: Allergies Allergy/AdvReac Type Severity Reaction Status Date / Time No Known Allergies Allergy Verified 04/14/20 21:09 - Home Medications Home Medications: Ambulatory Orders Clonidine HCl 0.1 mg PO BID 10/05/17 Famotidine [Pepcid] 20 mg PO DAILY 10/05/17 Quetiapine Fumarate [Seroquel -] 50 mg PO BID 10/05/17 Bupropion HCl [Wellbutrin Xl] 300 mg PO DAILY #30 tab.er.24h 03/06/20 Quetiapine Fumarate [Seroquel -] 200 mg PO HS #30 tab 03/06/20 Tamsulosin HCl [Flomax] 0.4 mg PO DAILY #30 cap.er.24h 03/06/20 Acetaminophen 2 tab PO Q4H PRN 04/15/20 Amlodipine Besylate [Norvasc -] 10 mg PO DAILY 04/15/20 Enalapril Maleate [Vasotec -] 10 mg PO DAILY 04/15/20 Levothyroxine [Synthroid -] 75 mcg PO DAILY 04/15/20 Melatonin 3 mg PO HS 04/15/20 Polyethylene Glycol 3350 [Miralax (For Daily Use) -] 17 gm PO DAILY 04/15/20 Tramadol HCl 50 mg PO Q6H PRN 04/15/20 Review of Systems - Review of Systems Constitutional: denies: Chills, Fever Cardiovascular: denies: Chest Pain, Shortness of Breath Gastrointestinal: reports: Abdominal Pain Physical Examination Vital Signs: Vital Signs Temperature 97.6 F 04/15/20 07:56 Pulse Rate 92 H 04/15/20 11:28 Respiratory Rate 22 H 04/15/20 11:28 Blood Pressure 108/64 04/15/20 11:30 O2 Sat by Pulse Oximetry (%) 100 04/15/20 08:53 Constitutional: Yes: Moderate Distress Cardiovascular: Yes: Regular Rate and Rhythm Respiratory: Yes: Diminished Gastrointestinal: Yes: Soft, Abdomen, Obese, Tenderness Edema: Yes Edema: LLE: Trace, RLE: Trace Neurological: Yes: Other (poor historian) Labs: CBC, BMP 04/15/20 06:20 04/15/20 06:20 Imaging - Results Chest X-ray: Image Reviewed Cat Scan: Report Reviewed (CT CHEST __ bibasilar atelectasis CT abd/pelvis noted) EKG: Image Reviewed Problem List - Problems (1) AMS (altered mental status) Code(s): R41.82 - ALTERED MENTAL STATUS, UNSPECIFIED Qualifiers: Altered mental status type: unspecified Qualified Code(s): R41.82 - Altered mental status, unspecified (2) Acute renal failure Code(s): N17.9 - ACUTE KIDNEY FAILURE, UNSPECIFIED Qualifiers: Acute renal failure type: unspecified Qualified Code(s): N17.9 - Acute kidney failure, unspecified (3) Hyperkalemia Code(s): E87.5 - HYPERKALEMIA (4) Rhabdomyolysis Code(s): M62.82 - RHABDOMYOLYSIS Qualifiers: Rhabdomyolysis type: non-traumatic Qualified Code(s): M62.82 - Rhabdomyolysis (5) MOY (acute kidney injury) Code(s): N17.9 - ACUTE KIDNEY FAILURE, UNSPECIFIED (6) Encephalopathy acute Code(s): G93.40 - ENCEPHALOPATHY, UNSPECIFIED (7) Personality disorder, unspecified Code(s): F60.9 - PERSONALITY DISORDER, UNSPECIFIED (8) Psychotic disorder Code(s): F29 - UNSP PSYCHOSIS NOT DUE TO A SUBSTANCE OR KNOWN PHYSIOL COND (9) Substance induced mood disorder Code(s): F19.94 - OTH PSYCHOACTIVE SUBSTANCE USE, UNSP W MOOD DISORDER (10) Diabetes Code(s): E11.9 - TYPE 2 DIABETES MELLITUS WITHOUT COMPLICATIONS Qualifiers: Diabetes mellitus type: type 2 Assessment/Plan PLAN iv fluids Dialyse patient today per Renal GI eval ICU monitoring monitor CPK ,renal function
[2020-04-15] MEDS ORDERED: PT OWN MED DRAWER 7, Y5N ONE ×2 (12:46→20:52)
[2020-04-15] MEDS: MUPIROCIN 2% TOPICAL OINTMENT FOR DECOLONIZATION NS SCH ×2 (12:48→22:08)
--- NOTE | 2020-04-15 13:25 | PN ---
Teaching Attending Note Name of Resident: Yoon Fu ATTENDING PHYSICIAN STATEMENT I saw and evaluated the patient. I reviewed the resident's note and discussed the case with the resident. I agree with the resident's findings and plan as documented. SUBJECTIVE: Pt seen and examined in the ICU. Confused, altered. HD catheter placed this AM for urgent HD. OBJECTIVE: Vital Signs Period Temp Pulse Resp BP Sys/Jett Pulse Ox Last 24 Hr 97.5 F-98.3 F 74-99 14-25 84-115/51-68 96-100 Intake & Output 04/12/20 04/13/20 04/14/20 04/15/20 23:59 23:59 23:59 23:59 Intake Total 1975 Output Total 2600 Balance -625 Weight 102.058 kg 100.607 kg Gen: altered Heart: RRR Lung: decreased breath sounds at the bases Abd: soft, nontender Ext: no edema CBC, BMP 04/15/20 06:20 04/15/20 06:20 Active Medications Albuterol Sulfate (Ventolin 0.083% Nebulizer Soln -) 1 amp NEB Q4H PRN PRN Reason: SHORT OF BREATH/WHEEZING Bupropion HCl (Wellbutrin Xl -) 300 mg PO DAILY [facility] Last Admin: 04/15/20 10:26 Dose: Not Given Documented by: Chlorhexidine Gluconate (Hibiclens For Decolonization -) 1 applic TP HS [facility] Famotidine (Pepcid -) 20 mg PO DAILY [facility] Last Admin: 04/15/20 10:26 Dose: Not Given Documented by: Heparin Sodium (Porcine) (Heparin -) 5,000 unit SQ TID [facility] Last Admin: 04/15/20 07:57 Dose: 5,000 unit Documented by: Dextrose/Sodium Chloride (D5-Ns -) 1,000 mls @ 125 mls/hr IV [facility] Last Admin: 04/15/20 08:35 Dose: 125 mls/hr Documented by: Sodium Chloride (Normal Saline -) 250 mls @ 3,000 mls/hr IV PRN PRN PRN Reason: Hypotension during Dialysis Stop: 04/16/20 11:16 Insulin Aspart (Novolog Vial Sliding Scale -) 1 vial SQ ACHS [facility]; Protocol Last Admin: 04/15/20 11:29 Dose: Not Given Documented by: Levothyroxine Sodium (Synthroid -) 75 mcg PO 0700 [facility] Last Admin: 04/15/20 10:26 Dose: Not Given Documented by: Melatonin (Melatonin) 3 mg PO HS [facility] Mupirocin (Bactroban Ointment (For Decolonization) -) 1 applic NS BID [facility] Stop: 04/20/20 09:59 Last Admin: 04/15/20 12:48 Dose: Not Given Documented by: Quetiapine Fumarate (Seroquel -) 50 mg PO BID [facility] Quetiapine Fumarate (Seroquel -) 200 mg PO HS [facility] Sodium Zirconium Cyclosilicate (Lokelma) 10 gm PO DAILY [facility] Last Admin: 04/15/20 10:25 Dose: Not Given Documented by: ASSESSMENT AND PLAN: Toxic Metabolic Encephalopathy Rhabdomyolysis Acute Kidney Injury Hyperkalemia Polysubstance Abuse HTN DM GERD Hep C Hypothyroidism Anemia/Thrombocytopenia - HD per renal - monitor lytes - IVF - monitor urine output, creatinine - O2 to keep SpO2 >90% - aspiration precautions - DVT prophylaxis - continue ICU monitoring for now
--- NOTE | 2020-04-15 13:45 | PN ---
Teaching Attending Note Name of Resident: Yany Adamson (Nephrology) ATTENDING PHYSICIAN STATEMENT I saw and evaluated the patient. I reviewed the resident's note and discussed the case with the resident. I agree with the resident's findings and plan as documented. Renal Pt is a 59 year old male with pmhx of polysubstance abuse, hep c, htn, depressin, and gerd who was send in for abd pain. He was found to be in acute renal failure and I was called to evaluate him. He is making urine however his renal function did not improve. He was also hyperkalemic. pmhx ep c htn gerd depression social polysubstance abuse family hx non contrib ros confusion at times Laboratory Tests 04/15/20 04/15/20 04/15/20 06:20 06:20 09:39 Sodium 135 L Potassium 6.3 H* BUN 134.7 H* Creatinine 8.5 H* POC Glucometer 112 Random Glucose 47 L* Calcium 6.6 L* Ferritin 996.2 H Current Medications Generic Name Dose Route Start Last Admin Trade Name Freq PRN Reason Stop Dose Admin Albuterol Sulfate 1 amp 04/15/20 03:25 Ventolin 0.083% Nebulizer Soln - NEB Q4H PRN SHORT OF BREATH/WHEEZING Bupropion HCl 300 mg 04/15/20 10:00 04/15/20 10:26 Wellbutrin Xl - PO Not Given DAILY [facility] Chlorhexidine Gluconate 1 applic 04/15/20 22:00 Hibiclens For Decolonization - TP HS [facility] Famotidine 20 mg 04/15/20 10:00 04/15/20 10:26 Pepcid - PO Not Given DAILY [facility] Heparin Sodium (Porcine) 5,000 unit 04/15/20 06:00 04/15/20 07:57 Heparin - SQ 5,000 unit TID [facility] Administration Dextrose/Sodium Chloride 1,000 mls @ 125 mls/hr 04/15/20 08:15 04/15/20 08:35 D5-Ns - IV 125 mls/hr [facility] Administration Sodium Chloride 250 mls @ 3,000 mls/hr 04/15/20 11:16 Normal Saline - IV 04/16/20 11:16 PRN PRN Hypotension during Dialysis Insulin Aspart 1 vial 04/15/20 07:00 04/15/20 11:29 Novolog Vial Sliding Scale - SQ Not Given ACHS [facility] Protocol Levothyroxine Sodium 75 mcg 04/15/20 10:00 04/15/20 10:26 Synthroid - PO Not Given 0700 [facility] Melatonin 3 mg 04/15/20 22:00 Melatonin PO HS [facility] Mupirocin 1 applic 04/15/20 10:00 04/15/20 12:48 Bactroban Ointment (For Decolonization) - NS 04/20/20 09:59 Not Given BID [facility] Quetiapine Fumarate 50 mg 04/15/20 10:00 Seroquel - PO BID [facility] Quetiapine Fumarate 200 mg 04/15/20 22:00 Seroquel - PO HS [facility] Sodium Zirconium Cyclosilicate 10 gm 04/15/20 10:00 04/15/20 10:25 Lokelma PO Not Given DAILY [facility] Last Vital Signs Temp Pulse Resp BP Pulse Ox 98.2 F 90 18 112/68 100 04/15/20 13:00 04/15/20 13:00 04/15/20 13:00 04/15/20 13:00 04/15/20 08:53 cardio s1s2 pulm clear gi soft ext neg edema neuro awake but confuse gu coronel skin neg rash Impression 1. MOY 2. hyperkalemia 3. altered mental status 4. hep c 5. htn 6. gerd 7. dm 8. met acidosis Plan - pt did not respond to medical therapy - will start HD - discussed HD with and also called his brother who gave consent - cont to monitor urine output - will evaluate for HD again tomorrow - ICU monitoring, discussed with icu team - send serologic workup
[2020-04-15] MEDS ORDERED: LORazepam 2 MG/ML SDV VIAL ONE (14:48)
[2020-04-15] MEDS ORDERED: LORazepam 2 MG/ML SDV VIAL IVPUSH ONE ×2 (14:49→14:54)
--- NOTE | 2020-04-15 16:04 | EKG ---
Test Reason : Blood Pressure : / mmHG Vent. Rate : 103 BPM Atrial Rate : 103 BPM P-R Int : 160 ms QRS Dur : 086 ms QT Int : 356 ms P-R-T Axes : 075 -21 014 degrees QTc Int : 466 ms SINUS TACHYCARDIA OTHERWISE NORMAL ECG WHEN COMPARED WITH ECG OF 15-APR-2020 01:53, QRS DURATION HAS DECREASED Confirmed by MD Luis Daniel ([id number]) on 04/15/2020 4:03:29 PM Referred By: Tamika COOPER Confirmed By:Yasir Luis MD
[2020-04-15 16:43] LABS: CREATININE 5.6 mg/dL (0.55-1.3); POTASSIUM 4.6 mmol/L (3.5-5.1)
[2020-04-15 16:47] LABS: BLOOD UREA NITROGEN 82.5 mg/dL (7-18)
[2020-04-15 16:50] LABS: CALCIUM 6.8 mg/dL (8.5-10.1)
--- NOTE | 2020-04-15 16:58 | PN ---
Physical Exam: SUBJECTIVE: Patient seen and examined beside. Very agitated. Patient not able to answer basic questions. Overnight, patient was treated for hyperkalemia with insulin and kayexalate and albuterol. OBJECTIVE: Vital Signs Temp Pulse Resp BP Pulse Ox 98.7 F 96 H 18 109/67 100 04/15/20 16:00 04/15/20 16:00 04/15/20 16:00 04/15/20 16:00 04/15/20 08:53 GENERAL: Awake A&O x 1. HEAD: Normal with no signs of trauma. LUNGS: equal breath sounds CTA BL HEART: RRR, normal S1 and S2 ABDOMEN: obese, nondistended, nontender EXTREMITIES: 2+ pulses, warm, well-perfused. NEUROLOGICAL: disorganized speech, moving all limbs PSYCHIATRIC: Not cooperative. SKIN: Warm, dry, 1 cm laceration on L buttock Intake & Output 04/14/20 04/15/20 23:59 23:59 Intake Total 4225 Output Total 4439 Balance -214 Weight 225 lb 221 lb 12.8 oz Laboratory Results - last 24 hr 04/14/20 04/14/20 04/14/20 21:17 21:32 23:00 WBC RBC Hgb Hct MCV MCH MCHC RDW Plt Count MPV Absolute Neuts (auto) Neutrophils % Lymphocytes % Monocytes % Eosinophils % Basophils % Nucleated RBC % PT with INR 13.30 H INR 1.13 H PTT (Actin FS) 36.6 H Anticoagulation Therapy Puncture Site Patient Temperature ABG pH ABG pCO2 ABG pO2 ABG HCO3 ABG O2 Sat (Measured) ABG O2 Content ABG Base Excess Henri Test VBG pH POC VBG pCO2 POC VBG pO2 VBG HCO3 VBG O2 Sat (Aylin) VBG Base Excess Patient On Oxygen O2 Delivery Device Oxygen Flow Rate Vent Mode Vent Rate Mechanical Rate PEEP Pressure Support Vent Sodium 130 L Potassium 7.9 H* Chloride 99 Carbon Dioxide 15 L Anion Gap 16 BUN 129.2 H* Creatinine 8.9 H* Est GFR (CKD-EPI)AfAm 6.86 Est GFR (CKD-EPI)NonAf 5.92 POC Glucometer 94 Random Glucose 80 Hemoglobin A1c % Serum Osmolality Lactic Acid Uric Acid Calcium 7.8 L Phosphorus Magnesium Ferritin Total Bilirubin 2.2 H AST 271 H ALT 100 H Alkaline Phosphatase 135 H Ammonia Creatine Kinase 7252 H Creatine Kinase Index 0.2 CK-MB (CK-2) 14.8 H Troponin I < 0.02 Total Protein 8.6 H Albumin 3.3 L Lipase 748 H TSH 4.07 H D Free T4 Urine Color Urine Appearance Urine pH Ur Specific [place] Urine Protein Urine Glucose (UA) Urine Ketones Urine Blood Urine Nitrite Urine Bilirubin Urine Urobilinogen Ur Leukocyte Esterase Urine WBC (Auto) Urine RBC (Auto) Urine Casts (Auto) U Epithel Cells (Auto) Urine Bacteria (Auto) Urine Osmolality Ur Random Creatinine U Random Total Protein Ur Random Sodium Ur Random Chloride Salicylates Opiates Screen Methadone Screen Acetaminophen Barbiturate Screen Phencyclidine Screen Ur Amphetamines Screen MDMA (Ecstasy) Screen Benzodiazepines Screen Cocaine Screen U Marijuana (THC) Screen Blood Type Antibody Screen 04/14/20 04/14/20 04/14/20 23:00 23:00 23:00 WBC 6.2 RBC 3.25 L Hgb 11.1 L Hct 32.0 L MCV 98.3 H MCH 34.1 H MCHC 34.7 RDW 15.4 Plt Count 115 L D MPV 12.0 H D Absolute Neuts (auto) 4.3 Neutrophils % 69.9 D Lymphocytes % 15.7 D Monocytes % 12.5 H Eosinophils % 1.5 Basophils % 0.4 Nucleated RBC % 0 PT with INR INR PTT (Actin FS) Anticoagulation Therapy Puncture Site Patient Temperature ABG pH ABG pCO2 ABG pO2 ABG HCO3 ABG O2 Sat (Measured) ABG O2 Content ABG Base Excess Henri Test VBG pH POC VBG pCO2 POC VBG pO2 VBG HCO3 VBG O2 Sat (Aylin) VBG Base Excess Patient On Oxygen O2 Delivery Device Oxygen Flow Rate Vent Mode Vent Rate Mechanical Rate PEEP Pressure Support Vent Sodium Potassium Chloride Carbon Dioxide Anion Gap BUN Creatinine Est GFR (CKD-EPI)AfAm Est GFR (CKD-EPI)NonAf POC Glucometer Random Glucose Hemoglobin A1c % Serum Osmolality Lactic Acid Uric Acid Calcium Phosphorus Magnesium Ferritin Total Bilirubin AST ALT Alkaline Phosphatase Ammonia < 10.00 L Creatine Kinase Creatine Kinase Index CK-MB (CK-2) Troponin I Total Protein Albumin Lipase TSH Free T4 Urine Color Urine Appearance Urine pH Ur Specific [place] Urine Protein Urine Glucose (UA) Urine Ketones Urine Blood Urine Nitrite Urine Bilirubin Urine Urobilinogen Ur Leukocyte Esterase Urine WBC (Auto) Urine RBC (Auto) Urine Casts (Auto) U Epithel Cells (Auto) Urine Bacteria (Auto) Urine Osmolality Ur Random Creatinine U Random Total Protein Ur Random Sodium Ur Random Chloride Salicylates Opiates Screen Methadone Screen Acetaminophen Barbiturate Screen Phencyclidine Screen Ur Amphetamines Screen MDMA (Ecstasy) Screen Benzodiazepines Screen Cocaine Screen U Marijuana (THC) Screen Blood Type AB POSITIVE Antibody Screen Negative 04/14/20 04/14/20 04/14/20 23:00 23:00 23:00 WBC RBC Hgb Hct MCV MCH MCHC RDW Plt Count MPV Absolute Neuts (auto) Neutrophils % Lymphocytes % Monocytes % Eosinophils % Basophils % Nucleated RBC % PT with INR INR PTT (Actin FS) Anticoagulation Therapy Puncture Site Patient Temperature ABG pH ABG pCO2 ABG pO2 ABG HCO3 ABG O2 Sat (Measured) ABG O2 Content ABG Base Excess Henri Test VBG pH 7.238 L POC VBG pCO2 35.5 L POC VBG pO2 43.4 VBG HCO3 14.8 L VBG O2 Sat (Aylin) 71.5 VBG Base Excess -11.5 L Patient On Oxygen O2 Delivery Device Oxygen Flow Rate Vent Mode Vent Rate Mechanical Rate PEEP Pressure Support Vent Sodium Potassium Chloride Carbon Dioxide Anion Gap BUN Creatinine Est GFR (CKD-EPI)AfAm Est GFR (CKD-EPI)NonAf POC Glucometer Random Glucose Hemoglobin A1c % Serum Osmolality Lactic Acid 1.2 Uric Acid Calcium Phosphorus Magnesium Ferritin Total Bilirubin AST ALT Alkaline Phosphatase Ammonia Creatine Kinase Creatine Kinase Index CK-MB (CK-2) Troponin I Total Protein Albumin Lipase TSH Free T4 Urine Color Urine Appearance Urine pH Ur Specific [place] Urine Protein Urine Glucose (UA) Urine Ketones Urine Blood Urine Nitrite Urine Bilirubin Urine Urobilinogen Ur Leukocyte Esterase Urine WBC (Auto) Urine RBC (Auto) Urine Casts (Auto) U Epithel Cells (Auto) Urine Bacteria (Auto) Urine Osmolality Ur Random Creatinine U Random Total Protein Ur Random Sodium Ur Random Chloride Salicylates < 1.7 L Opiates Screen Methadone Screen Acetaminophen < 2.0 Barbiturate Screen Phencyclidine Screen Ur Amphetamines Screen MDMA (Ecstasy) Screen Benzodiazepines Screen Cocaine Screen U Marijuana (THC) Screen Blood Type Antibody Screen 04/15/20 04/15/20 04/15/20 02:20 02:20 02:20 WBC RBC Hgb Hct MCV MCH MCHC RDW Plt Count MPV Absolute Neuts (auto) Neutrophils % Lymphocytes % Monocytes % Eosinophils % Basophils % Nucleated RBC % PT with INR INR PTT (Actin FS) Anticoagulation Therapy Puncture Site Patient Temperature ABG pH ABG pCO2 ABG pO2 ABG HCO3 ABG O2 Sat (Measured) ABG O2 Content ABG Base Excess Henri Test VBG pH POC VBG pCO2 POC VBG pO2 VBG HCO3 VBG O2 Sat (Aylin) VBG Base Excess Patient On Oxygen O2 Delivery Device Oxygen Flow Rate Vent Mode Vent Rate Mechanical Rate PEEP Pressure Support Vent Sodium Potassium Chloride Carbon Dioxide Anion Gap BUN Creatinine Est GFR (CKD-EPI)AfAm Est GFR (CKD-EPI)NonAf POC Glucometer Random Glucose Hemoglobin A1c % Serum Osmolality Lactic Acid Uric Acid Calcium Phosphorus Magnesium Ferritin Total Bilirubin AST ALT Alkaline Phosphatase Ammonia Creatine Kinase Creatine Kinase Index CK-MB (CK-2) Troponin I Total Protein Albumin Lipase TSH Free T4 Urine Color Yellow Urine Appearance Cloudy Urine pH 5.0 Ur Specific [place] 1.013 Urine Protein Negative Urine Glucose (UA) Negative Urine Ketones Negative Urine Blood 3+ H Urine Nitrite Negative Urine Bilirubin Negative Urine Urobilinogen 0.2 Ur Leukocyte Esterase Trace Urine WBC (Auto) 1 Urine RBC (Auto) Review A* Urine Casts (Auto) 3 U Epithel Cells (Auto) 2 Urine Bacteria (Auto) 1 Urine Osmolality 330 Ur Random Creatinine 107.0 U Random Total Protein 33.4 H Ur Random Sodium 32 L Ur Random Chloride < 11 L Salicylates Opiates Screen Positive A* Methadone Screen Negative Acetaminophen Barbiturate Screen Negative Phencyclidine Screen Negative Ur Amphetamines Screen Negative MDMA (Ecstasy) Screen Positive A* Benzodiazepines Screen Negative Cocaine Screen Negative U Marijuana (THC) Screen Negative Blood Type Antibody Screen 04/15/20 04/15/20 04/15/20 03:09 03:41 03:41 WBC RBC Hgb Hct MCV MCH MCHC RDW Plt Count MPV Absolute Neuts (auto) Neutrophils % Lymphocytes % Monocytes % Eosinophils % Basophils % Nucleated RBC % PT with INR INR PTT (Actin FS) Anticoagulation Therapy Puncture Site Patient Temperature ABG pH ABG pCO2 ABG pO2 ABG HCO3 ABG O2 Sat (Measured) ABG O2 Content ABG Base Excess Henri Test VBG pH POC VBG pCO2 POC VBG pO2 VBG HCO3 VBG O2 Sat (Aylin) VBG Base Excess Patient On Oxygen O2 Delivery Device Oxygen Flow Rate Vent Mode Vent Rate Mechanical Rate PEEP Pressure Support Vent Sodium 134 L Potassium 6.0 H Chloride 103 Carbon Dioxide 15 L Anion Gap 16 BUN 136.9 H* Creatinine 8.5 H* Est GFR (CKD-EPI)AfAm 7.25 Est GFR (CKD-EPI)NonAf 6.26 POC Glucometer 116 Random Glucose 93 Hemoglobin A1c % Serum Osmolality 331 H Lactic Acid Uric Acid 13.6 H* Calcium 7.4 L Phosphorus 11.6 H* Magnesium 3.0 H Ferritin Total Bilirubin AST ALT Alkaline Phosphatase Ammonia Creatine Kinase Creatine Kinase Index CK-MB (CK-2) Troponin I Total Protein Albumin Lipase TSH Free T4 Urine Color Urine Appearance Urine pH Ur Specific [place] Urine Protein Urine Glucose (UA) Urine Ketones Urine Blood Urine Nitrite Urine Bilirubin Urine Urobilinogen Ur Leukocyte Esterase Urine WBC (Auto) Urine RBC (Auto) Urine Casts (Auto) U Epithel Cells (Auto) Urine Bacteria (Auto) Urine Osmolality Ur Random Creatinine U Random Total Protein Ur Random Sodium Ur Random Chloride Salicylates Opiates Screen Methadone Screen Acetaminophen Barbiturate Screen Phencyclidine Screen Ur Amphetamines Screen MDMA (Ecstasy) Screen Benzodiazepines Screen Cocaine Screen U Marijuana (THC) Screen Blood Type Antibody Screen 04/15/20 04/15/20 04/15/20 03:41 06:20 06:20 WBC 5.4 RBC 2.78 L Hgb 9.3 L Hct 27.0 L D MCV 97.2 H MCH 33.3 MCHC 34.3 RDW 14.8 Plt Count 99 L MPV 11.7 H Absolute Neuts (auto) 3.3 Neutrophils % 61.5 Lymphocytes % 19.7 D Monocytes % 15.5 H Eosinophils % 2.7 Basophils % 0.6 Nucleated RBC % 0 PT with INR INR PTT (Actin FS) Anticoagulation Therapy Puncture Site Patient Temperature ABG pH ABG pCO2 ABG pO2 ABG HCO3 ABG O2 Sat (Measured) ABG O2 Content ABG Base Excess Henri Test VBG pH POC VBG pCO2 POC VBG pO2 VBG HCO3 VBG O2 Sat (Aylin) VBG Base Excess Patient On Oxygen O2 Delivery Device Oxygen Flow Rate Vent Mode Vent Rate Mechanical Rate PEEP Pressure Support Vent Sodium 135 L Potassium 6.3 H* Chloride 107 Carbon Dioxide 13 L Anion Gap 15 BUN 134.7 H* Creatinine 8.5 H* Est GFR (CKD-EPI)AfAm 7.25 Est GFR (CKD-EPI)NonAf 6.26 POC Glucometer Random Glucose 47 L* Hemoglobin A1c % Serum Osmolality Lactic Acid Uric Acid Calcium 6.6 L* Phosphorus Cancelled Magnesium Cancelled Ferritin Total Bilirubin 1.9 H AST 204 H ALT 79 H Alkaline Phosphatase 98 Ammonia Creatine Kinase 5351 H Creatine Kinase Index 0.1 CK-MB (CK-2) 10.3 H Troponin I < 0.02 Total Protein 6.5 Albumin 2.2 L Lipase TSH Free T4 Urine Color Urine Appearance Urine pH Ur Specific [place] Urine Protein Urine Glucose (UA) Urine Ketones Urine Blood Urine Nitrite Urine Bilirubin Urine Urobilinogen Ur Leukocyte Esterase Urine WBC (Auto) Urine RBC (Auto) Urine Casts (Auto) U Epithel Cells (Auto) Urine Bacteria (Auto) Urine Osmolality Ur Random Creatinine U Random Total Protein Ur Random Sodium Ur Random Chloride Salicylates Opiates Screen Methadone Screen Acetaminophen Barbiturate Screen Phencyclidine Screen Ur Amphetamines Screen MDMA (Ecstasy) Screen Benzodiazepines Screen Cocaine Screen U Marijuana (THC) Screen Blood Type Antibody Screen 04/15/20 04/15/20 04/15/20 06:20 06:20 06:20 WBC RBC Hgb Hct MCV MCH MCHC RDW Plt Count MPV Absolute Neuts (auto) Neutrophils % Lymphocytes % Monocytes % Eosinophils % Basophils % Nucleated RBC % PT with INR INR PTT (Actin FS) Anticoagulation Therapy Puncture Site Patient Temperature ABG pH ABG pCO2 ABG pO2 ABG HCO3 ABG O2 Sat (Measured) ABG O2 Content ABG Base Excess Henri Test VBG pH POC VBG pCO2 POC VBG pO2 VBG HCO3 VBG O2 Sat (Aylin) VBG Base Excess Patient On Oxygen O2 Delivery Device Oxygen Flow Rate Vent Mode Vent Rate Mechanical Rate PEEP Pressure Support Vent Sodium Potassium Chloride Carbon Dioxide Anion Gap BUN Creatinine Est GFR (CKD-EPI)AfAm Est GFR (CKD-EPI)NonAf POC Glucometer Random Glucose Hemoglobin A1c % 4.5 Serum Osmolality Lactic Acid Uric Acid Calcium Phosphorus Magnesium Ferritin 996.2 H Total Bilirubin AST ALT Alkaline Phosphatase Ammonia Creatine Kinase Creatine Kinase Index CK-MB (CK-2) Troponin I Total Protein Albumin Lipase TSH Free T4 0.91 Urine Color Urine Appearance Urine pH Ur Specific [place] Urine Protein Urine Glucose (UA) Urine Ketones Urine Blood Urine Nitrite Urine Bilirubin Urine Urobilinogen Ur Leukocyte Esterase Urine WBC (Auto) Urine RBC (Auto) Urine Casts (Auto) U Epithel Cells (Auto) Urine Bacteria (Auto) Urine Osmolality Ur Random Creatinine U Random Total Protein Ur Random Sodium Ur Random Chloride Salicylates Opiates Screen Methadone Screen Acetaminophen Barbiturate Screen Phencyclidine Screen Ur Amphetamines Screen MDMA (Ecstasy) Screen Benzodiazepines Screen Cocaine Screen U Marijuana (THC) Screen Blood Type Antibody Screen 04/15/20 04/15/20 04/15/20 06:30 09:39 10:56 WBC RBC Hgb Hct MCV MCH MCHC RDW Plt Count MPV Absolute Neuts (auto) Neutrophils % Lymphocytes % Monocytes % Eosinophils % Basophils % Nucleated RBC % PT with INR INR PTT (Actin FS) Anticoagulation Therapy No Result Required. Puncture Site Right radial Patient Temperature No Result Required. ABG pH 7.278 L ABG pCO2 30.60 L ABG pO2 129.9 H ABG HCO3 14.0 L ABG O2 Sat (Measured) 98.3 H ABG O2 Content No Result Required. ABG Base Excess -11.3 L Henri Test Positive VBG pH POC VBG pCO2 POC VBG pO2 VBG HCO3 VBG O2 Sat (Aylin) VBG Base Excess Patient On Oxygen Yes O2 Delivery Device Nasal Oxygen Flow Rate No Result Required. Vent Mode No Result Required. Vent Rate No Result Required. Mechanical Rate No Result Required. PEEP No Result Required. Pressure Support Vent No Result Required. Sodium Potassium Chloride Carbon Dioxide Anion Gap BUN Creatinine Est GFR (CKD-EPI)AfAm Est GFR (CKD-EPI)NonAf POC Glucometer 41 112 Random Glucose Hemoglobin A1c % Serum Osmolality Lactic Acid Uric Acid Calcium Phosphorus Magnesium Ferritin Total Bilirubin AST ALT Alkaline Phosphatase Ammonia Creatine Kinase Creatine Kinase Index CK-MB (CK-2) Troponin I Total Protein Albumin Lipase TSH Free T4 Urine Color Urine Appearance Urine pH Ur Specific [place] Urine Protein Urine Glucose (UA) Urine Ketones Urine Blood Urine Nitrite Urine Bilirubin Urine Urobilinogen Ur Leukocyte Esterase Urine WBC (Auto) Urine RBC (Auto) Urine Casts (Auto) U Epithel Cells (Auto) Urine Bacteria (Auto) Urine Osmolality Ur Random Creatinine U Random Total Protein Ur Random Sodium Ur Random Chloride Salicylates Opiates Screen Methadone Screen Acetaminophen Barbiturate Screen Phencyclidine Screen Ur Amphetamines Screen MDMA (Ecstasy) Screen Benzodiazepines Screen Cocaine Screen U Marijuana (THC) Screen Blood Type Antibody Screen 04/15/20 16:19 WBC RBC Hgb Hct MCV MCH MCHC RDW Plt Count MPV Absolute Neuts (auto) Neutrophils % Lymphocytes % Monocytes % Eosinophils % Basophils % Nucleated RBC % PT with INR INR PTT (Actin FS) Anticoagulation Therapy Puncture Site Patient Temperature ABG pH ABG pCO2 ABG pO2 ABG HCO3 ABG O2 Sat (Measured) ABG O2 Content ABG Base Excess Henri Test VBG pH POC VBG pCO2 POC VBG pO2 VBG HCO3 VBG O2 Sat (Aylin) VBG Base Excess Patient On Oxygen O2 Delivery Device Oxygen Flow Rate Vent Mode Vent Rate Mechanical Rate PEEP Pressure Support Vent Sodium Potassium Chloride Carbon Dioxide Anion Gap BUN Creatinine Est GFR (CKD-EPI)AfAm Est GFR (CKD-EPI)NonAf POC Glucometer 95 Random Glucose Hemoglobin A1c % Serum Osmolality Lactic Acid Uric Acid Calcium Phosphorus Magnesium Ferritin Total Bilirubin AST ALT Alkaline Phosphatase Ammonia Creatine Kinase Creatine Kinase Index CK-MB (CK-2) Troponin I Total Protein Albumin Lipase TSH Free T4 Urine Color Urine Appearance Urine pH Ur Specific [place] Urine Protein Urine Glucose (UA) Urine Ketones Urine Blood Urine Nitrite Urine Bilirubin Urine Urobilinogen Ur Leukocyte Esterase Urine WBC (Auto) Urine RBC (Auto) Urine Casts (Auto) U Epithel Cells (Auto) Urine Bacteria (Auto) Urine Osmolality Ur Random Creatinine U Random Total Protein Ur Random Sodium Ur Random Chloride Salicylates Opiates Screen Methadone Screen Acetaminophen Barbiturate Screen Phencyclidine Screen Ur Amphetamines Screen MDMA (Ecstasy) Screen Benzodiazepines Screen Cocaine Screen U Marijuana (THC) Screen Blood Type Antibody Screen Active Medications Generic Name Dose Route Start Last Admin Trade Name Freq PRN Reason Stop Dose Admin Albuterol Sulfate 1 amp 04/15/20 03:25 Ventolin 0.083% Nebulizer Soln - NEB Q4H PRN SHORT OF BREATH/WHEEZING Bupropion HCl 300 mg 04/15/20 10:00 04/15/20 15:20 Wellbutrin Xl - PO 300 mg DAILY FRANCINE Administration Chlorhexidine Gluconate 1 applic 04/15/20 22:00 Hibiclens For Decolonization - TP HS FRANCINE Famotidine 20 mg 04/15/20 10:00 04/15/20 15:20 Pepcid - PO 20 mg DAILY FRANCINE Administration Heparin Sodium (Porcine) 5,000 unit 04/15/20 06:00 04/15/20 15:29 Heparin - SQ 5,000 unit TID FRANCINE Administration Dextrose/Sodium Chloride 1,000 mls @ 125 mls/hr 04/15/20 08:15 04/15/20 16:23 D5-Ns - IV 125 mls/hr ASDIR FRANCINE Administration Sodium Chloride 250 mls @ 3,000 mls/hr 04/15/20 11:16 Normal Saline - IV 04/16/20 11:16 PRN PRN Hypotension during Dialysis Insulin Aspart 1 vial 04/15/20 07:00 04/15/20 16:22 Novolog Vial Sliding Scale - SQ Not Given ACHS FRANCINE Protocol Levothyroxine Sodium 75 mcg 04/15/20 10:00 04/15/20 15:21 Synthroid - PO 75 mcg 0700 FRANCINE Administration Melatonin 3 mg 04/15/20 22:00 Melatonin PO HS FRANCINE Mupirocin 1 applic 04/15/20 10:00 04/15/20 12:48 Bactroban Ointment (For Decolonization) - NS 04/20/20 09:59 Not Given BID FRANCINE Quetiapine Fumarate 50 mg 04/15/20 10:00 Seroquel - PO BID FRANCINE Quetiapine Fumarate 200 mg 04/15/20 22:00 Seroquel - PO HS FRANCINE Sodium Zirconium Cyclosilicate 10 gm 04/15/20 10:00 04/15/20 15:20 Lokelma PO 10 gm DAILY FRANCINE Administration ASSESSMENT/PLAN: 59 YO M PMH of HTN, DM, GERD, polysubstance use disorder (cocaine and heroin), alcohol use disorder, Hepatitis C, Depression, presented from [facility] for abnormal labs. Found to have MOY, severe hyperkalemia, and utox positive for opiates and MDMA (ectasy). Admitted to ICU for acute renal failure with metabolic encephalopathy and hyperkalemia. Neuro - Acute Metabolic Encephalopathy 2/2 Uremia vs Ectasy use - AOX1 currently and at baseline per ED staff - Speech & swallow consult, neuro checks, aspiration, fall risk precautions - reassess mental status after HD Cardio - repeat EKG tachy NSM, QRS decreased from previous EKG - Hold home BP medications given pt's current hypotension Pulm - no signs of an acute pulmonary pathology at this time Renal: - MOY on CKD 2/2 rhabdomyolysis likely from dehydration VS metabolic acidosis vs ectasy (given CK not >15-20K) - repeat CK trending down 7252 >> 5351 continue to monitor - Nephrology consulted (Dr. Edge) acute renal failure hyperkalemic despite medical management HD today, reevaluate for HD tomorrow repeat BMP after HD - at end of HD patient becoming very agitated, needed to go to bathroom, stopped HD 8 minutes early gave Ativan 2 mg IV push - Afternoon K level 4.6 Endo - TSH: 4.07 likely reactive - Ft4 sent Heme Onc -Hgb/Hct 11.132 >> repeat 9.3 could be from fluids, continue to monitor - B12, folic acid sent GI - AST/ALT: 271/100, repeat 274/100 >> continue to trend - PMH of alcohol use disorder/PSA abuse ID - COVID pending low suspicion Psych - spoke to facility, pt has history of schizoaffective disorder with major depression and anxiety - restart seroquel 200 mg HS - 2mg IV ativan q6h for agitation - restraints if needed if patient starts to pull at cath Lines - Trialysis cath placed in R IJ 04/15 FEN - D5 NS 125cc/hr - hyperkalemia, continue lokelma DVT Ppx - heparin 5,000 units SQ TID GI Ppx - No need for GI ppx in this patient Visit type - Emergency Visit Emergency Visit: Yes ED Registration Date: 04/15/20 Care time: The patient presented to the Emergency Department on the above date and was hospitalized for further evaluation of their emergent condition. - New Patient This patient is new to me today: No - Critical Care Critical Care patient: Yes Total Critical Care Time (in minutes): 37 Critical Care Statement: The care of this patient involved high complexity decision making to prevent further life threatening deterioration of the patient's condition and/or to evaluate & treat vital organ system(s) failure or risk of failure. - Discharge Referral Referred to [facility] Med [facility] No Physician Referral: Omar Larry DO (Neph) ATTENDING PHYSICIAN STATEMENT I saw and evaluated the patient. I reviewed the resident's note and discussed the case with the resident. I agree with the resident's findings and plan as documented. SUBJECTIVE: OBJECTIVE: ASSESSMENT AND PLAN:
--- NOTE | 2020-04-15 17:01 | PROC ---
Procedure Note Procedure: Patient needs trialysis cath for HD Performed by ED PGY1 Tyrone Sutherland Assisted by IM PGY1 Yoon Fu Supervised by ED PGY3 Sumanth Locke & Dr. Adkins Central Line Insertion Indication: Other Risks and Benefits Explained: Yes Consent on Chart: Yes Central Line: Triple Lumen Catheter Anesthesia: 2% Lidocaine Sterile Technique: Yes Ultrasound Guided Assistance: Yes Position: Right Internal Jugular Post Insertion: Yes: Bilateral Breath Sounds, Chest X-Ray Ordered Sterile Dressing Applied: Yes
[2020-04-15] MEDS ORDERED: LORazepam 2 MG/ML SDV VIAL IVPUSH PRN (17:07)
[2020-04-15] MEDS: CHLORHEXIDINE GLUCONATE 4% CLEANSER FOR DECOLONIZATION TP SCH (22:08)
[2020-04-15] MEDS: QUEtiapine FUMARATE 100 MG TABLET (FP) PO SCH (22:08)
[2020-04-15] MEDS: MELATONIN 1 MG TABLET PO SCH (22:08)
[2020-04-16] MEDS: HEPARIN NA (PORCINE) 5,000 UNITS/ML 1ML VIAL SQ SCH ×4 (05:55→22:52)
[2020-04-16] MEDS: INSULIN SLIDING SCALE (NOVOLOG) 1 VIAL SQ SCH ×5 (06:00→22:09)
[2020-04-16] MEDS: LEVOTHYROXINE NA 75 MCG TABLET (FP) PO SCH (06:00)
[2020-04-16 07:34] LABS: HEMATOCRIT 26.6 % (35.4-49); HEMOGLOBIN 9.1 GM/dL (11.7-16.9); MCH 33.3 pg (25.7-33.7); MCHC 34.3 g/dl (32.0-35.9); MEAN CELL VOLUME 97.2 fl (80-96); MEAN PLT VOLUME 10.6 fl (7.5-11.1); PLATELET COUNT 83 K/MM3 (134-434); RBC 2.74 M/mm3 (4.00-5.60); RDW 15.1 % (11.9-15.9); WHITE BLOOD COUNT 4.9 K/mm3 (4.0-10.0)
[2020-04-16] MEDS: DEXTROSE 5%-NORMAL SALINE 1,000 ML IV SCH ×2 (08:00→22:51)
[2020-04-16 08:03] LABS: ALBUMIN 2.2 g/dl (3.4-5.0); BILIRUBIN,TOTAL 1.5 mg/dL (0.2-1); CREATININE 4.7 mg/dL (0.55-1.3); MAGNESIUM 2.1 mg/dL (1.8-2.4); POTASSIUM 4.9 mmol/L (3.5-5.1); TOT PROT 6.4 g/dl (6.4-8.2)
[2020-04-16] MEDS: FAMOTIDINE 20 MG TABLET PO SCH (09:46)
[2020-04-16] MEDS: SODIUM ZIRCONIUM CYCLOSILICATE (LOKELMA) 5 GM PACKET PO SCH (09:47)
[2020-04-16] MEDS: MUPIROCIN 2% TOPICAL OINTMENT FOR DECOLONIZATION NS SCH (09:47)
--- NOTE | 2020-04-16 11:13 | PN ---
Teaching Attending Note Name of Resident: Ortega Quintana ATTENDING PHYSICIAN STATEMENT I saw and evaluated the patient. I reviewed the resident's note and discussed the case with the resident. I agree with the resident's findings and plan as documented. SUBJECTIVE: Pt seen and examined in the ICU. More awake, alert. Dialyzed yesterday. Good ur ine output. OBJECTIVE: Vital Signs Period Temp Pulse Resp BP Sys/Jett Pulse Ox Last 24 Hr 98.2 F-98.8 F 63-102 13-24 101-121/60-97 94-100 Intake & Output 04/13/20 04/14/20 04/15/20 04/16/20 23:59 23:59 23:59 23:59 Intake Total 4725 1175 Output Total 6239 1000 Balance -1514 175 Weight 102.058 kg 100.607 kg 103.419 kg Gen: more alert, awake Heart: RRR Lung: decreased breath sounds at the bases Abd: soft, nontender Ext: no edema CBC, BMP 04/16/20 05:30 04/16/20 05:30 Active Medications Albuterol Sulfate (Ventolin 0.083% Nebulizer Soln -) 1 amp NEB Q4H PRN PRN Reason: SHORT OF BREATH/WHEEZING Bupropion HCl (Wellbutrin Xl -) 300 mg PO DAILY [facility] Last Admin: 04/16/20 09:46 Dose: 300 mg Documented by: Chlorhexidine Gluconate (Hibiclens For Decolonization -) 1 applic TP HS [facility] Last Admin: 04/15/20 22:08 Dose: 1 applic Documented by: Famotidine (Pepcid -) 20 mg PO DAILY [facility] Last Admin: 04/16/20 09:46 Dose: 20 mg Documented by: Heparin Sodium (Porcine) (Heparin -) 5,000 unit SQ TID [facility] Last Admin: 04/16/20 05:55 Dose: 5,000 unit Documented by: Dextrose/Sodium Chloride (D5-Ns -) 1,000 mls @ 125 mls/hr IV ASDIR [facility] Last Admin: 04/16/20 08:00 Dose: 125 mls/hr Documented by: Sodium Chloride (Normal Saline -) 250 mls @ 3,000 mls/hr IV PRN PRN PRN Reason: Hypotension during Dialysis Stop: 04/16/20 11:16 Insulin Aspart (Novolog Vial Sliding Scale -) 1 vial SQ ACHS [facility]; Protocol Last Admin: 04/16/20 06:00 Dose: Not Given Documented by: Levothyroxine Sodium (Synthroid -) 75 mcg PO 0700 [facility] Last Admin: 04/16/20 06:00 Dose: 75 mcg Documented by: Melatonin (Melatonin) 3 mg PO HS [facility] Last Admin: 04/15/20 22:08 Dose: 3 mg Documented by: Mupirocin (Bactroban Ointment (For Decolonization) -) 1 applic NS BID [facility] Stop: 04/20/20 09:59 Last Admin: 04/16/20 09:47 Dose: 1 applic Documented by: Quetiapine Fumarate (Seroquel -) 200 mg PO HS [facility] Last Admin: 04/15/20 22:08 Dose: 200 mg Documented by: Sodium Zirconium Cyclosilicate (Lokelma) 10 gm PO DAILY [facility] Last Admin: 04/16/20 09:47 Dose: 10 gm Documented by: ASSESSMENT AND PLAN: Toxic Metabolic Encephalopathy Rhabdomyolysis Acute Kidney Injury Hyperkalemia Polysubstance Abuse HTN DM GERD Hep C Hypothyroidism Anemia/Thrombocytopenia - HD per renal - monitor lytes - IVF - monitor urine output, creatinine - O2 to keep SpO2 >90% - PO as tolerated - DVT prophylaxis - can monitor on floor
--- NOTE | 2020-04-16 11:14 | PN ---
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: Selected Entries 04/16/20 04/16/20 04/16/20 01:00 03:00 05:00 Breakfast Temperature 98.8 F 98.3 F Pulse Rate 99 H 100 H 93 H Blood Pressure 121/80 103/64 108/71 O2 Sat by Pulse 100 100 100 Oximetry (%) Oxygen Delivery Method 04/16/20 04/16/20 04/16/20 06:00 07:00 08:00 Breakfast NPO Temperature Pulse Rate 97 H 92 H Blood Pressure 116/73 111/69 O2 Sat by Pulse 98 94 L Oximetry (%) Oxygen Delivery Method 04/16/20 04/16/20 09:00 10:00 Breakfast Temperature 98.4 F Pulse Rate 95 H 95 H Blood Pressure 102/74 108/74 O2 Sat by Pulse 98 96 Oximetry (%) Oxygen Delivery Room Air Method Laboratory Tests 04/15/20 04/16/20 02:20 05:30 WBC 4.9 COVID-19 (ISMA) Pending More awake, alert. Dialyzed yesterday NPO To reassess
--- NOTE | 2020-04-16 12:11 | PN ---
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 (short form) - Note 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: he is more alert today no complaints-- has abdominal sopreness Denying he used ecstasy Vital Signs - 24 hr 04/15/20 04/15/20 04/15/20 12:50 13:00 13:30 Temperature 98.2 F Pulse Rate 89 90 90 Respiratory 18 18 18 Rate Blood Pressure 116/69 112/68 118/76 O2 Sat by Pulse Oximetry (%) 04/15/20 04/15/20 04/15/20 14:00 14:30 15:00 Temperature 98.8 F Pulse Rate 94 H 63 96 H Respiratory 18 18 18 Rate Blood Pressure 115/69 115/63 118/68 O2 Sat by Pulse Oximetry (%) 04/15/20 04/15/20 04/15/20 15:11 15:35 15:36 Temperature Pulse Rate 102 H 98 H Respiratory 18 24 H Rate Blood Pressure 120/60 121/74 O2 Sat by Pulse Oximetry (%) 04/15/20 04/15/20 04/15/20 16:00 17:41 19:00 Temperature 98.7 F 98.6 F Pulse Rate 96 H 100 H 98 H Respiratory 18 18 15 Rate Blood Pressure 109/67 116/77 112/75 O2 Sat by Pulse 100 Oximetry (%) 04/15/20 04/15/20 04/15/20 20:18 21:00 23:00 Temperature 98.5 F Pulse Rate 97 H 99 H Respiratory 15 17 19 Rate Blood Pressure 101/70 115/97 O2 Sat by Pulse 100 100 100 Oximetry (%) 04/16/20 04/16/20 04/16/20 01:00 03:00 05:00 Temperature 98.8 F 98.3 F Pulse Rate 99 H 100 H 93 H Respiratory 13 15 13 Rate Blood Pressure 121/80 103/64 108/71 O2 Sat by Pulse 100 100 100 Oximetry (%) 04/16/20 04/16/20 04/16/20 07:00 08:00 09:00 Temperature Pulse Rate 97 H 92 H 95 H Respiratory 14 15 14 Rate Blood Pressure 116/73 111/69 102/74 O2 Sat by Pulse 98 94 L 98 Oximetry (%) 04/16/20 10:00 Temperature 98.4 F Pulse Rate 95 H Respiratory 21 H Rate Blood Pressure 108/74 O2 Sat by Pulse 96 Oximetry (%) Current Medications Generic Name Dose Route Start Last Admin Trade Name Freq PRN Reason Stop Dose Admin Albuterol Sulfate 1 amp 04/15/20 03:25 Ventolin 0.083% Nebulizer Soln - NEB Q4H PRN SHORT OF BREATH/WHEEZING Bupropion HCl 300 mg 04/15/20 10:00 04/16/20 09:46 Wellbutrin Xl - PO 300 mg DAILY [facility] Administration Chlorhexidine Gluconate 1 applic 04/15/20 22:00 04/15/20 22:08 Hibiclens For Decolonization - TP 1 applic HS [facility] Administration Famotidine 20 mg 04/15/20 10:00 04/16/20 09:46 Pepcid - PO 20 mg DAILY [facility] Administration Heparin Sodium (Porcine) 5,000 unit 04/15/20 06:00 04/16/20 05:55 Heparin - SQ 5,000 unit TID [facility] Administration Dextrose/Sodium Chloride 1,000 mls @ 125 mls/hr 04/15/20 08:15 04/16/20 08:00 D5-Ns - IV 125 mls/hr ASDIR [facility] Administration Sodium Chloride 250 mls @ 3,000 mls/hr 04/15/20 11:16 Normal Saline - IV 04/16/20 11:16 PRN PRN Hypotension during Dialysis Insulin Aspart 1 vial 04/15/20 07:00 04/16/20 06:00 Novolog Vial Sliding Scale - SQ Not Given ACHS [facility] Protocol Levothyroxine Sodium 75 mcg 04/15/20 10:00 04/16/20 06:00 Synthroid - PO 75 mcg 0700 [facility] Administration Melatonin 3 mg 04/15/20 22:00 04/15/20 22:08 Melatonin PO 3 mg HS [facility] Administration Mupirocin 1 applic 04/15/20 10:00 04/16/20 09:47 Bactroban Ointment (For Decolonization) - NS 04/20/20 09:59 1 applic BID [facility] Administration Quetiapine Fumarate 200 mg 04/15/20 22:00 04/15/20 22:08 Seroquel - PO 200 mg HS [facility] Administration Sodium Zirconium Cyclosilicate 10 gm 04/15/20 10:00 04/16/20 09:47 Lokelma PO 10 gm DAILY [facility] Administration Laboratory Results - last 24 hr 04/15/20 04/15/20 04/15/20 16:00 16:19 21:06 WBC RBC Hgb Hct MCV MCH MCHC RDW Plt Count MPV Sodium 140 Potassium 4.6 Chloride 107 Carbon Dioxide 23 Anion Gap 11 BUN 82.5 H Creatinine 5.6 H Est GFR (CKD-EPI)AfAm 12.01 Est GFR (CKD-EPI)NonAf 10.36 POC Glucometer 95 89 Random Glucose 100 Calcium 6.8 L* Phosphorus Magnesium Total Bilirubin AST ALT Alkaline Phosphatase Creatine Kinase 5470 H Creatine Kinase Index 0.1 CK-MB (CK-2) 9.5 H Total Protein Albumin 04/16/20 04/16/20 04/16/20 05:30 05:30 05:30 WBC 4.9 RBC 2.74 L Hgb 9.1 L Hct 26.6 L MCV 97.2 H MCH 33.3 MCHC 34.3 RDW 15.1 Plt Count 83 L MPV 10.6 Sodium 143 Potassium 4.9 Chloride 112 H Carbon Dioxide 21 Anion Gap 10 BUN 79.0 H Creatinine 4.7 H Est GFR (CKD-EPI)AfAm 14.84 Est GFR (CKD-EPI)NonAf 12.81 POC Glucometer Random Glucose 83 Calcium 6.0 L* Phosphorus 6.0 H Magnesium 2.1 Total Bilirubin 1.5 H AST 205 H ALT 92 H Alkaline Phosphatase 98 Creatine Kinase 4244 H Creatine Kinase Index 0.1 CK-MB (CK-2) 4.8 H Total Protein 6.4 Albumin 2.2 L 04/16/20 04/16/20 05:51 11:33 WBC RBC Hgb Hct MCV MCH MCHC RDW Plt Count MPV Sodium Potassium Chloride Carbon Dioxide Anion Gap BUN Creatinine Est GFR (CKD-EPI)AfAm Est GFR (CKD-EPI)NonAf POC Glucometer 85 85 Random Glucose Calcium Phosphorus Magnesium Total Bilirubin AST ALT Alkaline Phosphatase Creatine Kinase Creatine Kinase Index CK-MB (CK-2) Total Protein Albumin S1 S2 RRR Lungs decreased Abd- soft, obese, Tender generalized edema+ PLAN Dialysis per renal continue with meds trend CPK-- decreasing OOB ok to transfer to floors Problem List - Problems (1) AMS (altered mental status) Code(s): R41.82 - ALTERED MENTAL STATUS, UNSPECIFIED Qualifiers: Altered mental status type: unspecified Qualified Code(s): R41.82 - Altered mental status, unspecified (2) Acute renal failure Code(s): N17.9 - ACUTE KIDNEY FAILURE, UNSPECIFIED Qualifiers: Acute renal failure type: unspecified Qualified Code(s): N17.9 - Acute kidney failure, unspecified (3) Hyperkalemia Code(s): E87.5 - HYPERKALEMIA (4) Rhabdomyolysis Code(s): M62.82 - RHABDOMYOLYSIS Qualifiers: Rhabdomyolysis type: non-traumatic Qualified Code(s): M62.82 - Rhabdomyolysis (5) MOY (acute kidney injury) Code(s): N17.9 - ACUTE KIDNEY FAILURE, UNSPECIFIED (6) Encephalopathy acute Code(s): G93.40 - ENCEPHALOPATHY, UNSPECIFIED (7) Personality disorder, unspecified Code(s): F60.9 - PERSONALITY DISORDER, UNSPECIFIED (8) Psychotic disorder Code(s): F29 - UNSP PSYCHOSIS NOT DUE TO A SUBSTANCE OR KNOWN PHYSIOL COND (9) Substance induced mood disorder Code(s): F19.94 - OTH PSYCHOACTIVE SUBSTANCE USE, UNSP W MOOD DISORDER (10) Diabetes Code(s): E11.9 - TYPE 2 DIABETES MELLITUS WITHOUT COMPLICATIONS Qualifiers: Diabetes mellitus type: type 2
--- NOTE | 2020-04-16 12:19 | CON.GI ---
Consult Consult Specialty:: GI Referred by:: Ashley Pretty Reason for Consultation:: Abnormal LFTs - History of Present Illness Chief Complaint: Altered mental status History of Present Illness: 59M from [place] admitted for altered mental status. Noted to be in renal failure, rhabdomyolysis and have abnormal liver chemistries. Ammonia level was <10. CT scan of the abdomen and pelvis revealed marked fecal retention and gallstones. + Urine tox for ecstacy and opiates. It is unclear from the chart why he resides in a shelter. Patient is confused and believes that it is november or december. There is also a record of him having hepatitis C. It is uncleaer if this was treated. He states that he abuses intravenous heroin for multiple years and drank heavily as well. No rectal bleeding, melena reported. points towards his pelvis and complains of pain. - History Source History Provided By: Patient, Medical Record Limitations to Obtaining History: Poor Historian - Past Medical History CARE ADVOCATE: Yes: Seizure Cardio/Vascular: Yes: HTN Pulmonary: Yes: COPD Hepatobiliary: Yes: Hepatitis C - Alcohol/Substance Use Hx Alcohol Use: Yes History of Substance Use: reports: Heroin - Smoking History Smoking history: Current every day smoker Have you smoked in the past 12 months: Yes Aproximately how many cigarettes per day: 5 - Social History ADL: Support Services Place of : Other History of Recent Travel: No Home Medications - Allergies Allergies/Adverse Reactions: Allergies Allergy/AdvReac Type Severity Reaction Status Date / Time No Known Allergies Allergy Verified 04/14/20 21:09 - Home Medications Home Medications: Ambulatory Orders Clonidine HCl 0.1 mg PO BID 10/05/17 Famotidine [Pepcid] 20 mg PO DAILY 10/05/17 Quetiapine Fumarate [Seroquel -] 50 mg PO BID 10/05/17 Bupropion HCl [Wellbutrin Xl] 300 mg PO DAILY #30 tab.er.24h 03/06/20 Quetiapine Fumarate [Seroquel -] 200 mg PO HS #30 tab 03/06/20 Tamsulosin HCl [Flomax] 0.4 mg PO DAILY #30 cap.er.24h 03/06/20 Acetaminophen 2 tab PO Q4H PRN 04/15/20 Amlodipine Besylate [Norvasc -] 10 mg PO DAILY 04/15/20 Enalapril Maleate [Vasotec -] 10 mg PO DAILY 04/15/20 Levothyroxine [Synthroid -] 75 mcg PO DAILY 04/15/20 Melatonin 3 mg PO HS 04/15/20 Polyethylene Glycol 3350 [Miralax (For Daily Use) -] 17 gm PO DAILY 04/15/20 Tramadol HCl 50 mg PO Q6H PRN 04/15/20 Family Medical History Family History: Unable to Obtain Review of Systems - Review of Systems Neurological: reports: Confusion Physical Exam-GI Vital Signs: Vital Signs Temperature 98.4 F 04/16/20 10:00 Pulse Rate 95 H 04/16/20 10:00 Respiratory Rate 21 H 04/16/20 10:00 Blood Pressure 108/74 04/16/20 10:00 O2 Sat by Pulse Oximetry (%) 96 04/16/20 10:00 Constitutional: Yes: Calm Eyes: No: Sclera Icterus Cardiovascular: Yes: Regular Rate and Rhythm. No: Murmur Respiratory: Yes: Diminished (at bases bilaterally with poor insp effort) ...Auscultate: Yes: Normoactive Bowel Sounds ...Palpate: Yes: Soft, Tenderness (mild TTP pelvis. No RUQ tenderness) ...Percussion: No: Tympanitic Extremities: Yes: Other (Heel pads in place bilaterally) Edema: No (No LE edema) Neurological: Yes: Alert, Confusion. No: [facility] Labs: CBC, BMP 04/16/20 05:30 04/16/20 05:30 INR, PTT INR 1.13 (0.83-1.09) H 04/14/20 23:00 Hepatic Panel Total Bilirubin 1.5 mg/dL (0.2-1) H 04/16/20 05:30 AST 205 U/L (15-37) H 04/16/20 05:30 ALT 92 U/L (13-61) H 04/16/20 05:30 Alkaline Phosphatase 98 U/L (45-117) 04/16/20 05:30 Albumin 2.2 g/dl (3.4-5.0) L 04/16/20 05:30 Problem List - Problems (1) Abnormal liver function tests Assessment/Plan: Unclear how much of this is his baseline. Given prior h/o IVDA/hepC/alcohol abuse, it his thrombocytopenia, elevated bilirubin and mild coagulopathy are his baseline, then I suspect that he has chronic liver disease as sequela of his toxic habits. Rhabdomyolysis likely playing a rolse in the tranaminases being elevated Advise: Avoid hepatotoxic agents Check Quantitaive HCV PCR if not recently performed at his nursing facility Check Hepatitis A/B panel. Will need hepatitis A/B vaccine if serologies do not relfect immunity Needs Q6 Month hepatic US to screen for HCC Will need egd to exclude esophageal / gastric varices when acute issues are resolved. This can be pursued as an outpatient. Will need to be clarified if he is followed as an outpatient for his hepatitis C and suspected cirrhosis Advised need for complete alcohol cessation Review previous outpatient labs if any Code(s): R94.5 - ABNORMAL RESULTS OF LIVER FUNCTION STUDIES (2) Fecal retention Assessment/Plan: Started MiraLAX 17g PO BID, Can titrate to TID if needed Advised ICU resident that Mr. Naidu will need to be assessed to see if he has enough rectal fecal retention to benefit from manual disimpaction TSH is elevated. Assess further for hypothyroidism per PMD Code(s): K59.00 - CONSTIPATION, UNSPECIFIED
[2020-04-16] MEDS: POLYETHYLENE GLYCOL 3350 119 GM BTL PO SCH ×2 (13:00→22:45)
--- NOTE | 2020-04-16 13:36 | PN ---
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 Swallowing assessed with efficient mastication and brisk swallow. (-) 3 oz water test. On full fluids Suggest reg,soft diet,thin liquids. Monitor tolerance
--- NOTE | 2020-04-16 15:05 | PN ---
Physical Exam: SUBJECTIVE: Patient seen and examined at the bedside. mentation much improved compared to yesterday. OBJECTIVE: Vital Signs Period Temp Pulse Resp BP Sys/Jett Pulse Ox Last 24 Hr 98.3 F-98.8 F 91-102 13-28 99-121/60-97 94-100 GENERAL: AOx2 HEAD: Normal with no signs of trauma. LUNGS: equal breath sounds CTA BL HEART: RRR, normal S1 and S2 ABDOMEN: Distended, no tenderness EXTREMITIES: 2+ pulses, warm, well-perfused. NEUROLOGICAL: disorganized speech, moving all limbs EXTREMITIES: 2+ pulses, L ankle swollen PSYCHIATRIC: Not cooperative. SKIN: Warm, dry, 1 cm laceration on L buttock Laboratory Results - last 24 hr 04/15/20 04/15/20 04/15/20 16:00 16:19 21:06 WBC RBC Hgb Hct MCV MCH MCHC RDW Plt Count MPV Sodium 140 Potassium 4.6 Chloride 107 Carbon Dioxide 23 Anion Gap 11 BUN 82.5 H Creatinine 5.6 H Est GFR (CKD-EPI)AfAm 12.01 Est GFR (CKD-EPI)NonAf 10.36 POC Glucometer 95 89 Random Glucose 100 Calcium 6.8 L* Phosphorus Magnesium Total Bilirubin AST ALT Alkaline Phosphatase Creatine Kinase 5470 H Creatine Kinase Index 0.1 CK-MB (CK-2) 9.5 H Total Protein Albumin 04/16/20 04/16/20 04/16/20 05:30 05:30 05:30 WBC 4.9 RBC 2.74 L Hgb 9.1 L Hct 26.6 L MCV 97.2 H MCH 33.3 MCHC 34.3 RDW 15.1 Plt Count 83 L MPV 10.6 Sodium 143 Potassium 4.9 Chloride 112 H Carbon Dioxide 21 Anion Gap 10 BUN 79.0 H Creatinine 4.7 H Est GFR (CKD-EPI)AfAm 14.84 Est GFR (CKD-EPI)NonAf 12.81 POC Glucometer Random Glucose 83 Calcium 6.0 L* Phosphorus 6.0 H Magnesium 2.1 Total Bilirubin 1.5 H AST 205 H ALT 92 H Alkaline Phosphatase 98 Creatine Kinase 4244 H Creatine Kinase Index 0.1 CK-MB (CK-2) 4.8 H Total Protein 6.4 Albumin 2.2 L 04/16/20 04/16/20 05:51 11:33 WBC RBC Hgb Hct MCV MCH MCHC RDW Plt Count MPV Sodium Potassium Chloride Carbon Dioxide Anion Gap BUN Creatinine Est GFR (CKD-EPI)AfAm Est GFR (CKD-EPI)NonAf POC Glucometer 85 85 Random Glucose Calcium Phosphorus Magnesium Total Bilirubin AST ALT Alkaline Phosphatase Creatine Kinase Creatine Kinase Index CK-MB (CK-2) Total Protein Albumin Active Medications Generic Name Dose Route Start Last Admin Trade Name Freq PRN Reason Stop Dose Admin Albuterol Sulfate 1 amp 04/15/20 03:25 Ventolin 0.083% Nebulizer Soln - NEB Q4H PRN SHORT OF BREATH/WHEEZING Bupropion HCl 300 mg 04/15/20 10:00 04/16/20 09:46 Wellbutrin Xl - PO 300 mg DAILY [facility] Administration Chlorhexidine Gluconate 1 applic 04/15/20 22:00 04/15/20 22:08 Hibiclens For Decolonization - TP 1 applic HS [facility] Administration Famotidine 20 mg 04/15/20 10:00 04/16/20 09:46 Pepcid - PO 20 mg DAILY [facility] Administration Heparin Sodium (Porcine) 5,000 unit 04/15/20 06:00 04/16/20 05:55 Heparin - SQ 5,000 unit TID [facility] Administration Dextrose/Sodium Chloride 1,000 mls @ 125 mls/hr 04/15/20 08:15 04/16/20 08:00 D5-Ns - IV 125 mls/hr ASDIR [facility] Administration Sodium Chloride 250 mls @ 3,000 mls/hr 04/15/20 11:16 Normal Saline - IV 04/16/20 11:16 PRN PRN Hypotension during Dialysis Insulin Aspart 1 vial 04/15/20 07:00 04/16/20 06:00 Novolog Vial Sliding Scale - SQ Not Given ACHS [facility] Protocol Levothyroxine Sodium 75 mcg 04/15/20 10:00 04/16/20 06:00 Synthroid - PO 75 mcg 0700 [facility] Administration Melatonin 3 mg 04/15/20 22:00 04/15/20 22:08 Melatonin PO 3 mg HS [facility] Administration Mupirocin 1 applic 04/15/20 10:00 04/16/20 09:47 Bactroban Ointment (For Decolonization) - NS 04/20/20 09:59 1 applic BID [facility] Administration Polyethylene Glycol 17 gm 08/27/20 12:15 Miralax (For Daily Use) - PO BID [facility] Quetiapine Fumarate 200 mg 04/15/20 22:00 04/15/20 22:08 Seroquel - PO 200 mg HS [facility] Administration Sodium Zirconium Cyclosilicate 10 gm 04/15/20 10:00 04/16/20 09:47 Lokelma PO 10 gm DAILY [facility] Administration ASSESSMENT/PLAN: 59M PMH of HTN, DM, GERD, polysubstance use disorder (cocaine and heroin), alcohol use disorder, Hepatitis C, from [facility] presented with AMS, found to have MOY and Utox positive for opiates and MDMA (ectasy), HD yesterday. #Neuro - Acute Metabolic Encephalopathy 2/2 Uremia vs Ectasy - Mentation improved today - Speech & swallow consult: Soft diet - Continue home Wllbutryn, Seroquel #Cardio - Holding home antihypertensives due to low BP #Pulm - SpO2 98% on room air #Renal: - BUN/Cr: 79/4.7, Cr improved from 5.6 - No HD indicated today, as per Nephro - RIJ Dialysis catheter placed (04/15) #Endo - Continue home Synthroid #Heme - Hgb/Hct 11.1/32 -> 9.3/27 -> 9.1/26.6 - B12, folic acid sent #GI - Transaminitis, alcoholic hepatitis? - Maddrey's DF in 3.2, no indication for steroids - GI consult: Hep panel, Miralax, assess for fecal disimpaction - Pt had a large BM, symptoms improved, does not currently require fecal disimpaction #ID - COVID pending low suspicion #FEN - Soft diet, advance as tolerated #Prophylaxis Heprain 5k TID #Dispo - Stable for transfer to / ATTENDING PHYSICIAN STATEMENT I saw and evaluated the patient. I reviewed the resident's note and discussed the case with the resident. I agree with the resident's findings and plan as documented. SUBJECTIVE: OBJECTIVE: ASSESSMENT AND PLAN:
[2020-04-16] MEDS ORDERED: CALCIUM GLUCONATE 10% - 1,000 MG/10 ML VIAL IVPUSH ONE (17:57)
--- NOTE | 2020-04-16 18:03 | PN ---
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, Physician History of Present Illness: Pt seen and examined at bedside. He is more awake and interactive today. He is making urine. - Current Medication List Current Medications: Active Medications Albuterol Sulfate (Ventolin 0.083% Nebulizer Soln -) 1 amp NEB Q4H PRN PRN Reason: SHORT OF BREATH/WHEEZING Bupropion HCl (Wellbutrin Xl -) 300 mg PO DAILY [facility] Last Admin: 04/16/20 09:46 Dose: 300 mg Documented by: Calcium Acetate (Phoslo -) 667 mg PO TIDCM [facility] Calcium Carbonate/Cholecalciferol (Os-Kevin 500+D -) 2 tab PO DAILY [facility] Calcium Gluconate (Calcium Gluconate 10% -) 1,000 mg IVPUSH ONCE ONE Stop: 04/16/20 17:58 Chlorhexidine Gluconate (Hibiclens For Decolonization -) 1 applic TP [facility] Last Admin: 04/15/20 22:08 Dose: 1 applic Documented by: Famotidine (Pepcid -) 20 mg PO DAILY [facility] Last Admin: 04/16/20 09:46 Dose: 20 mg Documented by: Heparin Sodium (Porcine) (Heparin -) 5,000 unit SQ TID [facility] Last Admin: 04/16/20 16:22 Dose: 5,000 unit Documented by: Dextrose/Sodium Chloride (D5-Ns -) 1,000 mls @ 125 mls/hr IV ASDIR [facility] Last Admin: 04/16/20 08:00 Dose: 125 mls/hr Documented by: Sodium Chloride (Normal Saline -) 250 mls @ 3,000 mls/hr IV PRN PRN PRN Reason: Hypotension during Dialysis Stop: 04/16/20 11:16 Insulin Aspart (Novolog Vial Sliding Scale -) 1 vial SQ ACHS [facility]; Protocol Last Admin: 04/16/20 16:47 Dose: Not Given Documented by: Levothyroxine Sodium (Synthroid -) 75 mcg PO 0700 [facility] Last Admin: 04/16/20 06:00 Dose: 75 mcg Documented by: Melatonin (Melatonin) 3 mg PO HS [facility] Last Admin: 04/15/20 22:08 Dose: 3 mg Documented by: Mupirocin (Bactroban Ointment (For Decolonization) -) 1 applic NS BID [facility] Stop: 04/20/20 09:59 Last Admin: 04/16/20 09:47 Dose: 1 applic Documented by: Polyethylene Glycol (Miralax (For Daily Use) -) 17 gm PO BID [facility] Last Admin: 04/16/20 13:00 Dose: Not Given Documented by: Quetiapine Fumarate (Seroquel -) 200 mg PO HS [facility] Last Admin: 04/15/20 22:08 Dose: 200 mg Documented by: Sodium Zirconium Cyclosilicate (Lokelma) 10 gm PO DAILY [facility] Last Admin: 04/16/20 09:47 Dose: 10 gm Documented by: - Objective Vital Signs: Vital Signs Temperature 98.5 F 04/16/20 14:00 Pulse Rate 110 H 04/16/20 14:00 Respiratory Rate 20 04/16/20 14:00 Blood Pressure 97/71 04/16/20 14:00 O2 Sat by Pulse Oximetry (%) 99 04/16/20 14:00 Constitutional: Yes: Calm Eyes: Yes: Conjunctiva Clear HENT: Yes: Atraumatic Cardiovascular: Yes: S1, S2 Respiratory: Yes: CTA Bilaterally Gastrointestinal: Yes: Soft Genitourinary: Yes: Cook Present Musculoskeletal: Yes: WNL Edema: LLE: Trace, RLE: Trace Neurological: Yes: Oriented Labs: CBC, BMP 04/16/20 05:30 04/16/20 05:30 INR, PTT INR 1.13 (0.83-1.09) H 04/14/20 23:00 Assessment/Plan Current Medications Generic Name Dose Route Start Last Admin Trade Name Freq PRN Reason Stop Dose Admin Albuterol Sulfate 1 amp 04/15/20 03:25 Ventolin 0.083% Nebulizer Soln - NEB Q4H PRN SHORT OF BREATH/WHEEZING Bupropion HCl 300 mg 04/15/20 10:00 04/16/20 09:46 Wellbutrin Xl - PO 300 mg DAILY [facility] Administration Calcium Acetate 667 mg 04/16/20 18:00 Phoslo - PO TIDCM [facility] Calcium Carbonate/Cholecalciferol 2 tab 04/16/20 18:00 Os-Kevin 500+D - PO DAILY [facility] Calcium Gluconate 1,000 mg 04/16/20 17:57 Calcium Gluconate 10% - IVPUSH 04/16/20 17:58 ONCE ONE Chlorhexidine Gluconate 1 applic 04/15/20 22:00 04/15/20 22:08 Hibiclens For Decolonization - TP 1 applic HS [facility] Administration Famotidine 20 mg 04/15/20 10:00 04/16/20 09:46 Pepcid - PO 20 mg DAILY [facility] Administration Heparin Sodium (Porcine) 5,000 unit 04/15/20 06:00 04/16/20 16:22 Heparin - SQ 5,000 unit TID [facility] Administration Dextrose/Sodium Chloride 1,000 mls @ 125 mls/hr 04/15/20 08:15 04/16/20 08:00 D5-Ns - IV 125 mls/hr ASDIR [facility] Administration Sodium Chloride 250 mls @ 3,000 mls/hr 04/15/20 11:16 Normal Saline - IV 04/16/20 11:16 PRN PRN Hypotension during Dialysis Insulin Aspart 1 vial 04/15/20 07:00 04/16/20 16:47 Novolog Vial Sliding Scale - SQ Not Given ACHS [facility] Protocol Levothyroxine Sodium 75 mcg 04/15/20 10:00 04/16/20 06:00 Synthroid - PO 75 mcg 0700 [facility] Administration Melatonin 3 mg 04/15/20 22:00 04/15/20 22:08 Melatonin PO 3 mg HS [facility] Administration Mupirocin 1 applic 04/15/20 10:00 04/16/20 09:47 Bactroban Ointment (For Decolonization) - NS 04/20/20 09:59 1 applic BID [facility] Administration Polyethylene Glycol 17 gm 04/16/20 12:15 04/16/20 13:00 Miralax (For Daily Use) - PO Not Given BID [facility] Quetiapine Fumarate 200 mg 04/15/20 22:00 04/15/20 22:08 Seroquel - PO 200 mg HS [facility] Administration Sodium Zirconium Cyclosilicate 10 gm 04/15/20 10:00 04/16/20 09:47 Lokelma PO 10 gm DAILY [facility] Administration Impression 1. MOY 2. hyperkalemia 3. altered mental status 4. hep c 5. htn 6. gerd 7. dm 8. met acidosis 9. hypocalcemia Plan - replace calcium - hold off hd today - repeat labs in am - monitor lytes - renal function is improving - follow serologies
[2020-04-16] MEDS: CALCIUM ACETATE 667 MG CAPSULE (FP) PO SCH (18:49)
[2020-04-16] MEDS ORDERED: methylPREDNISolone NA SUCC 125 MG/2 ML VIAL IVPB ONE (18:59)
[2020-04-16] MEDS ORDERED: methylPREDNISolone NA SUCC 125 MG/2 ML VIAL ONE (19:23)
[2020-04-16] MEDS: QUEtiapine FUMARATE 100 MG TABLET (FP) PO SCH (21:00)
[2020-04-16] MEDS: CHLORHEXIDINE GLUCONATE 4% CLEANSER FOR DECOLONIZATION TP SCH (21:01)
[2020-04-16] MEDS: CALCIUM 500MG/VIT-D 200 UNITS COMBO TABLET (FP) PO SCH (21:12)
[2020-04-16] MEDS ORDERED: ALBUTEROL SO4 0.083% IH SOL 2.5 MG/3 ML VIAL.NEB. NEB PRN (22:00)
[2020-04-16] MEDS ORDERED: SODIUM CHLORIDE 250 ML IV PRN (22:00)
[2020-04-16] MEDS: QUEtiapine FUMARATE 200 MG TABLET PO SCH (22:52)
[2020-04-16] MEDS: MELATONIN 1 MG TABLET PO SCH (22:52)
[2020-04-17] MEDS: INSULIN SLIDING SCALE (NOVOLOG) 1 VIAL SQ SCH ×4 (06:04→22:36)
[2020-04-17] MEDS: HEPARIN NA (PORCINE) 5,000 UNITS/ML 1ML VIAL SQ SCH ×3 (06:05→22:35)
[2020-04-17] MEDS: LEVOTHYROXINE NA 75 MCG TABLET (FP) PO SCH (06:05)
[2020-04-17] MEDS: DEXTROSE 5%-NORMAL SALINE 1,000 ML IV SCH (07:09)
[2020-04-17] MEDS: MUPIROCIN 2% TOPICAL OINTMENT FOR DECOLONIZATION NS SCH (07:09)
[2020-04-17] MEDS: MELATONIN 1 MG TABLET PO SCH ×2 (07:09→22:35)
[2020-04-17] MEDS: POLYETHYLENE GLYCOL 3350 119 GM BTL PO SCH ×3 (07:10→22:35)
[2020-04-17 07:31] LABS: BASO % 0.2 % (0-2.0); EOS % 0.1 % (0-4.5); HEMATOCRIT 28.8 % (35.4-49); HEMOGLOBIN 9.9 GM/dL (11.7-16.9); LYMPH % 17.9 % (8-40); MCH 33.3 pg (25.7-33.7); MCHC 34.3 g/dl (32.0-35.9); MONO % 1.6 % (3.8-10.2); NEUT % 80.2 % (42.8-82.8); PLATELET COUNT 93 K/MM3 (134-434); RBC 2.97 M/mm3 (4.00-5.60); RDW 14.8 % (11.9-15.9); WHITE BLOOD COUNT 3.9 K/mm3 (4.0-10.0)
[2020-04-17 07:59] LABS: ALBUMIN 2.6 g/dl (3.4-5.0); BILIRUBIN,TOTAL 1.4 mg/dL (0.2-1); BLOOD UREA NITROGEN 59.7 mg/dL (7-18); CALCIUM 7.2 mg/dL (8.5-10.1); CREATININE 3.3 mg/dL (0.55-1.3); MAGNESIUM 1.8 mg/dL (1.8-2.4); PHOSPHOROUS 4.5 mg/dL (2.5-4.9); POTASSIUM 5.1 mmol/L (3.5-5.1); TOT PROT 7.5 g/dl (6.4-8.2)
[2020-04-17] MEDS ORDERED: SODIUM CHLORIDE 250 ML IV PRN (09:41)
[2020-04-17] MEDS: CALCIUM ACETATE 667 MG CAPSULE (FP) PO SCH ×3 (09:52→18:07)
--- NOTE | 2020-04-17 10:40 | PN ---
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, Physician History of Present Illness: pt seen/ examined chart reviewed awake comfortable passing urine cr better - Current Medication List Current Medications: Active Medications Albuterol Sulfate (Ventolin 0.083% Nebulizer Soln -) 1 amp NEB Q4H PRN PRN Reason: SHORT OF BREATH/WHEEZING Bupropion HCl (Wellbutrin Xl -) 300 mg PO DAILY [facility] Calcium Acetate (Phoslo -) 667 mg PO TIDCM [facility] Last Admin: 04/17/20 09:52 Dose: Not Given Documented by: Calcium Carbonate/Cholecalciferol (Os-Kevin 500+D -) 2 tab PO DAILY [facility] Last Admin: 04/16/20 21:12 Dose: 2 tab Documented by: Famotidine (Pepcid -) 20 mg PO DAILY [facility] Heparin Sodium (Porcine) (Heparin -) 5,000 unit SQ TID [facility] Last Admin: 04/17/20 06:05 Dose: 5,000 unit Documented by: Sodium Chloride (Normal Saline -) 250 mls @ 3,000 mls/hr IV PRN PRN PRN Reason: Hypotension during Dialysis Dextrose/Sodium Chloride (D5-Ns -) 1,000 mls @ 125 mls/hr IV ASDIR [facility] Last Admin: 04/17/20 07:09 Dose: 125 mls/hr Documented by: Sodium Chloride (Normal Saline -) 250 mls @ 3,000 mls/hr IV PRN PRN PRN Reason: Hypotension during Dialysis Stop: 04/18/20 09:41 Insulin Aspart (Novolog Vial Sliding Scale -) 1 vial SQ ACHS [facility]; Protocol Last Admin: 04/17/20 06:04 Dose: Not Given Documented by: Levothyroxine Sodium (Synthroid -) 75 mcg PO 0700 [facility] Last Admin: 04/17/20 06:05 Dose: 75 mcg Documented by: Melatonin (Melatonin) 3 mg PO [facility] Last Admin: 04/16/20 22:52 Dose: 3 mg Documented by: Polyethylene Glycol (Miralax (For Daily Use) -) 17 gm PO BID [facility] Last Admin: 04/16/20 22:45 Dose: Not Given Documented by: Quetiapine Fumarate (Seroquel -) 200 mg PO [facility] Last Admin: 04/16/20 22:52 Dose: Not Given Documented by: Sodium Zirconium Cyclosilicate (Lokelma) 10 gm PO DAILY [facility] - Objective Vital Signs: Vital Signs Temperature 98.2 F 04/17/20 06:00 Pulse Rate 91 H 04/17/20 06:00 Respiratory Rate 20 04/17/20 06:00 Blood Pressure 108/62 04/17/20 06:00 O2 Sat by Pulse Oximetry (%) 97 04/17/20 06:00 Constitutional: Yes: No Distress Neck: Yes: Supple Cardiovascular: Yes: Regular Rate and Rhythm Respiratory: Yes: Diminished Gastrointestinal: Yes: Soft Edema: Yes Edema: LLE: 1+, RLE: 1+ Neurological: Yes: Alert Labs: CBC, BMP 04/17/20 07:05 04/17/20 07:05 INR, PTT INR 1.13 (0.83-1.09) H 04/14/20 23:00 Problem List - Problems (1) AMS (altered mental status) Code(s): R41.82 - ALTERED MENTAL STATUS, UNSPECIFIED Qualifiers: Altered mental status type: unspecified Qualified Code(s): R41.82 - Altered mental status, unspecified (2) Abnormal liver function tests Code(s): R94.5 - ABNORMAL RESULTS OF LIVER FUNCTION STUDIES (3) Acute renal failure Code(s): N17.9 - ACUTE KIDNEY FAILURE, UNSPECIFIED Qualifiers: Acute renal failure type: unspecified Qualified Code(s): N17.9 - Acute kidney failure, unspecified (4) Rhabdomyolysis Code(s): M62.82 - RHABDOMYOLYSIS Qualifiers: Rhabdomyolysis type: non-traumatic Qualified Code(s): M62.82 - Rhabdomyolysis (5) Personality disorder, unspecified Code(s): F60.9 - PERSONALITY DISORDER, UNSPECIFIED (6) Substance induced mood disorder Code(s): F19.94 - OTH PSYCHOACTIVE SUBSTANCE USE, UNSP W MOOD DISORDER (7) Diabetes Code(s): E11.9 - TYPE 2 DIABETES MELLITUS WITHOUT COMPLICATIONS Qualifiers: Diabetes mellitus type: type 2 (8) HTN (hypertension), benign Code(s): I10 - ESSENTIAL (PRIMARY) HYPERTENSION Assessment/Plan discussed with rn continue present care D/W She DNS/RN -- where he is getting Ectasy !!! monitor labs/ lfts x ray of ankle will follow
--- NOTE | 2020-04-17 10:48 | PN ---
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, [employer] [employer] - Note 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: Selected Entries 04/16/20 04/16/20 04/17/20 06:00 15:00 04:00 Breakfast NPO NPO Lunch 50% Temperature 98.4 F Pulse Rate 94 H Blood Pressure 114/62 04/17/20 06:00 Breakfast Lunch Temperature 98.2 F Pulse Rate 91 H Blood Pressure 108/62 Laboratory Tests 04/17/20 07:05 WBC 3.9 L IN HD Swallowing assessed with efficient mastication and brisk swallow. (-) 3 oz water test. On full fluids Suggest reg,soft diet,thin liquids. Monitor tolerance
--- NOTE | 2020-04-17 14:43 | PN ---
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 (short form) - Note 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: Monitor LFT's avoid hepatotoxic agents. If ALP / bilirubin continue to rise, MRCP to evaluate biliary tract. Problem List - Problems (1) Abnormal liver function tests Code(s): R94.5 - ABNORMAL RESULTS OF LIVER FUNCTION STUDIES (2) Fecal retention Code(s): K59.00 - CONSTIPATION, UNSPECIFIED
--- NOTE | 2020-04-17 15:31 | PN ---
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, Physician History of Present Illness: Pt seen and examined at bedside. He is awake and alert. He tolerated HD. - Current Medication List Current Medications: Active Medications Albuterol Sulfate (Ventolin 0.083% Nebulizer Soln -) 1 amp NEB Q4H PRN PRN Reason: SHORT OF BREATH/WHEEZING Bupropion HCl (Wellbutrin Xl -) 300 mg PO DAILY [facility] Calcium Acetate (Phoslo -) 667 mg PO TIDCM [facility] Last Admin: 04/17/20 12:37 Dose: Not Given Documented by: Calcium Carbonate/Cholecalciferol (Os-Kevin 500+D -) 2 tab PO DAILY [facility] Last Admin: 04/16/20 21:12 Dose: 2 tab Documented by: Famotidine (Pepcid -) 20 mg PO DAILY [facility] Heparin Sodium (Porcine) (Heparin -) 5,000 unit SQ TID [facility] Last Admin: 04/17/20 14:29 Dose: Not Given Documented by: Sodium Chloride (Normal Saline -) 250 mls @ 3,000 mls/hr IV PRN PRN PRN Reason: Hypotension during Dialysis Dextrose/Sodium Chloride (D5-Ns -) 1,000 mls @ 125 mls/hr IV ASDIR [facility] Last Admin: 04/17/20 07:09 Dose: 125 mls/hr Documented by: Sodium Chloride (Normal Saline -) 250 mls @ 3,000 mls/hr IV PRN PRN PRN Reason: Hypotension during Dialysis Stop: 04/18/20 09:41 Insulin Aspart (Novolog Vial Sliding Scale -) 1 vial SQ ACHS [facility]; Protocol Last Admin: 04/17/20 12:19 Dose: Not Given Documented by: Levothyroxine Sodium (Synthroid -) 75 mcg PO 0700 [facility] Last Admin: 04/17/20 06:05 Dose: 75 mcg Documented by: Melatonin (Melatonin) 3 mg PO [facility] Last Admin: 04/16/20 22:52 Dose: 3 mg Documented by: Polyethylene Glycol (Miralax (For Daily Use) -) 17 gm PO BID [facility] Last Admin: 04/17/20 12:19 Dose: Not Given Documented by: Quetiapine Fumarate (Seroquel -) 200 mg PO [facility] Last Admin: 04/16/20 22:52 Dose: Not Given Documented by: Sodium Zirconium Cyclosilicate (Lokelma) 10 gm PO DAILY [facility] - Objective Vital Signs: Vital Signs Temperature 98.2 F 04/17/20 06:00 Pulse Rate 80 04/17/20 14:01 Respiratory Rate 18 04/17/20 14:01 Blood Pressure 132/82 04/17/20 14:01 O2 Sat by Pulse Oximetry (%) 97 04/17/20 09:00 Constitutional: Yes: Calm Eyes: Yes: Conjunctiva Clear HENT: Yes: Atraumatic Neck: Yes: Supple Cardiovascular: Yes: S1, S2 Respiratory: Yes: CTA Bilaterally Gastrointestinal: Yes: Soft Genitourinary: Yes: WNL Musculoskeletal: Yes: WNL Edema: Yes Edema: LLE: Trace, RLE: Trace Neurological: Yes: Oriented Psychiatric: Yes: Oriented Labs: CBC, BMP 04/17/20 07:05 04/17/20 07:05 INR, PTT INR 1.13 (0.83-1.09) H 04/14/20 23:00 Assessment/Plan Current Medications Generic Name Dose Route Start Last Admin Trade Name Freq PRN Reason Stop Dose Admin Albuterol Sulfate 1 amp 04/16/20 22:00 Ventolin 0.083% Nebulizer Soln - NEB Q4H PRN SHORT OF BREATH/WHEEZING Bupropion HCl 300 mg 04/17/20 10:00 Wellbutrin Xl - PO DAILY [facility] Calcium Acetate 667 mg 04/16/20 18:00 04/17/20 12:37 Phoslo - PO Not Given TIDCM [facility] Calcium Carbonate/Cholecalciferol 2 tab 04/16/20 18:00 04/16/20 21:12 Os-Kevin 500+D - PO 2 tab DAILY [facility] Administration Famotidine 20 mg 04/17/20 10:00 Pepcid - PO DAILY [facility] Heparin Sodium (Porcine) 5,000 unit 04/16/20 22:00 04/17/20 14:29 Heparin - SQ Not Given TID [facility] Sodium Chloride 250 mls @ 3,000 mls/hr 04/16/20 22:00 Normal Saline - IV PRN PRN Hypotension during Dialysis Dextrose/Sodium Chloride 1,000 mls @ 125 mls/hr 04/16/20 22:00 04/17/20 07:09 D5-Ns - IV 125 mls/hr ASDIR [facility] Administration Sodium Chloride 250 mls @ 3,000 mls/hr 04/17/20 09:41 Normal Saline - IV 04/18/20 09:41 PRN PRN Hypotension during Dialysis Insulin Aspart 1 vial 04/16/20 22:00 04/17/20 12:19 Novolog Vial Sliding Scale - SQ Not Given ACHS [facility] Protocol Levothyroxine Sodium 75 mcg 04/17/20 07:00 04/17/20 06:05 Synthroid - PO 75 mcg 0700 [facility] Administration Melatonin 3 mg 04/16/20 22:00 04/16/20 22:52 Melatonin PO 3 mg HS [facility] Administration Polyethylene Glycol 17 gm 04/16/20 22:00 04/17/20 12:19 Miralax (For Daily Use) - PO Not Given BID [facility] Quetiapine Fumarate 200 mg 04/16/20 22:00 04/16/20 22:52 Seroquel - PO Not Given HS [facility] Sodium Zirconium Cyclosilicate 10 gm 04/17/20 10:00 Lokelma PO DAILY [facility] Impression 1. MOY 2. hyperkalemia 3. altered mental status 4. hep c 5. htn 6. gerd 7. dm 8. met acidosis 9. hypocalcemia Plan - will dialyze today - d/c bea after hd - monitor renal function and urine output - pt shows recovery - follow serologies
--- NOTE | 2020-04-17 15:36 | PROC ---
Procedure Note Procedure: REMOVAL OF TRIALYSIS CATHETER Asked by Nephrology to remove HD catheter. Coag profile checked prior too removal. Considered within normal limits to safely remove. Right neck trialysis cath removed with distal tip intact. Direct pressure held until hemostaisis achieved. Clean, dry dressing applied. Patient tolerated well.
[2020-04-17] MEDS ORDERED: PT OWN MED DRAWER 7, Y5N ONE ×2 (15:54→21:59)
[2020-04-17] MEDS: FAMOTIDINE 20 MG TABLET PO SCH (15:56)
[2020-04-17] MEDS: SODIUM ZIRCONIUM CYCLOSILICATE (LOKELMA) 5 GM PACKET PO SCH (15:57)
[2020-04-17] MEDS: CALCIUM 500MG/VIT-D 200 UNITS COMBO TABLET (FP) PO SCH (15:58)
[2020-04-17 16:29] VITALS: BMI 35.3
[2020-04-17] MEDS: QUEtiapine FUMARATE 200 MG TABLET PO SCH (22:36)
[2020-04-17 23:08] LABS: HEP B CORE AB, TOT Positive (Negative)
[2020-04-18] MEDS: DEXTROSE 5%-NORMAL SALINE 1,000 ML IV SCH ×3 (02:45→22:05)
[2020-04-18] MEDS: LEVOTHYROXINE NA 75 MCG TABLET (FP) PO SCH (06:20)
[2020-04-18] MEDS: HEPARIN NA (PORCINE) 5,000 UNITS/ML 1ML VIAL SQ SCH ×3 (06:20→21:08)
[2020-04-18] MEDS: INSULIN SLIDING SCALE (NOVOLOG) 1 VIAL SQ SCH ×4 (06:24→21:08)
[2020-04-18 07:23] LABS: BASO % 0.4 % (0-2.0); EOS % 2.5 % (0-4.5); HEMATOCRIT 26.5 % (35.4-49); HEMOGLOBIN 9.1 GM/dL (11.7-16.9); LYMPH % 38.8 % (8-40); MCH 33.6 pg (25.7-33.7); MCHC 34.3 g/dl (32.0-35.9); MEAN CELL VOLUME 97.8 fl (80-96); MEAN PLT VOLUME 9.9 fl (7.5-11.1); MONO % 7.6 % (3.8-10.2); NEUT % 50.7 % (42.8-82.8); PLATELET COUNT 89 K/MM3 (134-434); RBC 2.71 M/mm3 (4.00-5.60); RDW 15.2 % (11.9-15.9); WHITE BLOOD COUNT 6.4 K/mm3 (4.0-10.0)
[2020-04-18 07:47] LABS: ALBUMIN 2.4 g/dl (3.4-5.0); BILIRUBIN,TOTAL 1.3 mg/dL (0.2-1); BLOOD UREA NITROGEN 39.6 mg/dL (7-18); CALCIUM 8.1 mg/dL (8.5-10.1); POTASSIUM 3.8 mmol/L (3.5-5.1); TOT PROT 6.8 g/dl (6.4-8.2)
[2020-04-18 09:35] LABS: ERYTHROCYTE SEDIMENTATION RATE 96 mm/hr (0-20)
[2020-04-18] MEDS: CALCIUM 500MG/VIT-D 200 UNITS COMBO TABLET (FP) PO SCH (10:51)
[2020-04-18] MEDS: FAMOTIDINE 20 MG TABLET PO SCH (10:51)
[2020-04-18] MEDS: POLYETHYLENE GLYCOL 3350 119 GM BTL PO SCH ×2 (10:52→21:08)
[2020-04-18] MEDS: CALCIUM ACETATE 667 MG CAPSULE (FP) PO SCH ×3 (10:52→17:50)
[2020-04-18] MEDS: SODIUM ZIRCONIUM CYCLOSILICATE (LOKELMA) 5 GM PACKET PO SCH (10:53)
--- NOTE | 2020-04-18 11:05 | PN ---
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, Physician History of Present Illness: pt seen/ examined chart reviewed awake comfortable passing urine cr continue to improve. - Current Medication List Current Medications: Active Medications Albuterol Sulfate (Ventolin 0.083% Nebulizer Soln -) 1 amp NEB Q4H PRN PRN Reason: SHORT OF BREATH/WHEEZING Bupropion HCl (Wellbutrin Xl -) 300 mg PO DAILY [facility] Last Admin: 04/18/20 10:55 Dose: 300 mg Documented by: Calcium Acetate (Phoslo -) 667 mg PO TIDCM [facility] Last Admin: 04/18/20 10:52 Dose: 667 mg Documented by: Calcium Carbonate/Cholecalciferol (Os-Kevin 500+D -) 2 tab PO DAILY [facility] Last Admin: 04/18/20 10:51 Dose: 2 tab Documented by: Famotidine (Pepcid -) 20 mg PO DAILY [facility] Last Admin: 04/18/20 10:51 Dose: 20 mg Documented by: Heparin Sodium (Porcine) (Heparin -) 5,000 unit SQ TID [facility] Last Admin: 04/18/20 06:20 Dose: 5,000 unit Documented by: Dextrose/Sodium Chloride (D5-Ns -) 1,000 mls @ 125 mls/hr IV ASDIR [facility] Last Admin: 04/18/20 02:45 Dose: 125 mls/hr Documented by: Sodium Chloride (Normal Saline -) 250 mls @ 3,000 mls/hr IV PRN PRN PRN Reason: Hypotension during Dialysis Stop: 04/18/20 09:41 Insulin Aspart (Novolog Vial Sliding Scale -) 1 vial SQ ACHS [facility]; Protocol Last Admin: 04/18/20 06:24 Dose: Not Given Documented by: Levothyroxine Sodium (Synthroid -) 75 mcg PO 0700 [facility] Last Admin: 04/18/20 06:20 Dose: 75 mcg Documented by: Melatonin (Melatonin) 3 mg PO [facility] Last Admin: 04/17/20 22:35 Dose: 3 mg Documented by: Polyethylene Glycol (Miralax (For Daily Use) -) 17 gm PO BID [facility] Last Admin: 04/18/20 10:52 Dose: Not Given Documented by: Quetiapine Fumarate (Seroquel -) 200 mg PO [facility] Last Admin: 04/17/20 22:36 Dose: 200 mg Documented by: Sodium Zirconium Cyclosilicate (Lokelma) 10 gm PO DAILY [facility] Last Admin: 04/18/20 10:53 Dose: 10 gm Documented by: - Objective Vital Signs: Vital Signs Temperature 98.3 F 04/18/20 10:57 Pulse Rate 82 04/18/20 10:57 Respiratory Rate 20 04/18/20 10:57 Blood Pressure 90/46 L 04/18/20 10:57 O2 Sat by Pulse Oximetry (%) 96 04/18/20 10:57 Constitutional: Yes: No Distress Neck: Yes: Supple Cardiovascular: Yes: Regular Rate and Rhythm Respiratory: Yes: Diminished Gastrointestinal: Yes: Soft Edema: No Neurological: Yes: Alert Psychiatric: Yes: Alert Labs: CBC, BMP 04/18/20 06:40 04/18/20 06:40 INR, PTT INR 1.13 (0.83-1.09) H 04/14/20 23:00 Problem List - Problems (1) AMS (altered mental status) Code(s): R41.82 - ALTERED MENTAL STATUS, UNSPECIFIED Qualifiers: Altered mental status type: unspecified Qualified Code(s): R41.82 - Altered mental status, unspecified (2) Abnormal liver function tests Code(s): R94.5 - ABNORMAL RESULTS OF LIVER FUNCTION STUDIES (3) Acute renal failure Code(s): N17.9 - ACUTE KIDNEY FAILURE, UNSPECIFIED Qualifiers: Acute renal failure type: unspecified Qualified Code(s): N17.9 - Acute kidney failure, unspecified (4) Rhabdomyolysis Code(s): M62.82 - RHABDOMYOLYSIS Qualifiers: Rhabdomyolysis type: non-traumatic Qualified Code(s): M62.82 - Rhabdomyolysis (5) Personality disorder, unspecified Code(s): F60.9 - PERSONALITY DISORDER, UNSPECIFIED (6) Substance induced mood disorder Code(s): F19.94 - OTH PSYCHOACTIVE SUBSTANCE USE, UNSP W MOOD DISORDER (7) Diabetes Code(s): E11.9 - TYPE 2 DIABETES MELLITUS WITHOUT COMPLICATIONS Qualifiers: Diabetes mellitus type: type 2 (8) HTN (hypertension), benign Code(s): I10 - ESSENTIAL (PRIMARY) HYPERTENSION Assessment/Plan Better continue present care D/W She DNS/RN -- where he is getting Ectasy !!! monitor labs/ lfts Hep C +ve x ray of ankle reviewed monitor lytes will follow
[2020-04-18] MEDS ORDERED: PT OWN MED DRAWER 7, Y5N ONE (20:40)
[2020-04-18] MEDS: QUEtiapine FUMARATE 200 MG TABLET PO SCH (21:08)
[2020-04-18] MEDS: MELATONIN 1 MG TABLET PO SCH (21:08)
--- NOTE | 2020-04-18 21:22 | PN ---
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 (short form) - Note 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: patient admitted with rhabdomyolysis, renal failure and dehydration. Renal function is improving . LFTS downward trend R> trend LFTS expect to continues to improve as renal function and dehydration improves
[2020-04-19] MEDS: INSULIN SLIDING SCALE (NOVOLOG) 1 VIAL SQ SCH ×2 (06:17→12:06)
[2020-04-19] MEDS: LEVOTHYROXINE NA 75 MCG TABLET (FP) PO SCH (06:20)
[2020-04-19] MEDS: HEPARIN NA (PORCINE) 5,000 UNITS/ML 1ML VIAL SQ SCH ×2 (06:20→14:06)
[2020-04-19] MEDS: DEXTROSE 5%-NORMAL SALINE 1,000 ML IV SCH (06:20)
[2020-04-19 07:23] LABS: ALBUMIN 2.5 g/dl (3.4-5.0); BILIRUBIN,TOTAL 0.9 mg/dL (0.2-1); BLOOD UREA NITROGEN 32.8 mg/dL (7-18); CALCIUM 8.3 mg/dL (8.5-10.1); CREATININE 1.8 mg/dL (0.55-1.3); POTASSIUM 3.8 mmol/L (3.5-5.1); TOT PROT 7.2 g/dl (6.4-8.2)
[2020-04-19] MEDS ORDERED: SODIUM ZIRCONIUM CYCLOSILICATE (LOKELMA) 10 GM PACKET PO SCH (10:00)
[2020-04-19] MEDS: CALCIUM 500MG/VIT-D 200 UNITS COMBO TABLET (FP) PO SCH (10:14)
[2020-04-19] MEDS: CALCIUM ACETATE 667 MG CAPSULE (FP) PO SCH ×2 (10:14→12:36)
[2020-04-19] MEDS: FAMOTIDINE 20 MG TABLET PO SCH (10:15)
[2020-04-19] MEDS: POLYETHYLENE GLYCOL 3350 119 GM BTL PO SCH (10:19)
--- NOTE | 2020-04-19 11:29 | DS ---
Physical Examination Vital Signs: Vital Signs Temperature 98.4 F 04/19/20 09:00 Pulse Rate 88 04/19/20 09:00 Respiratory Rate 18 04/19/20 09:00 Blood Pressure 120/74 04/19/20 09:00 O2 Sat by Pulse Oximetry (%) 97 04/19/20 09:00 Findings/Remarks: Patient seen and examined today awake and comfortable Back to baseline Eating well No complaints Liver function tests improving Constitutional: Yes: No Distress, Moderate Distress Neck: Yes: Supple Cardiovascular: Yes: Regular Rate and Rhythm Respiratory: Yes: CTA Bilaterally Gastrointestinal: Yes: Soft Edema: No Labs: CBC, BMP 04/18/20 06:40 04/19/20 06:25 Discharge Summary Problems reviewed: Yes Reason For Visit: RENAL FAILURE, RHABDOMYOYSIS, ALTERED MENTAL STATU Current Active Problems AMS (altered mental status) (Acute) Abnormal liver function tests (Acute) Acute renal failure (Acute) Fecal retention (Acute) Hyperkalemia (Acute) Rhabdomyolysis (Acute) Hospital Course: In summary 59 yrs old male sent from [facility] for abnormal labs and AMS-- creatinine was 8.7 in [place] labs Pt appeared more letahrgic per [place] Baseline-- wheelchair, walks with cane at times, AAOx 3 In ER was found to be in acute renal failure, elevated LFT , rhabdomyolysis., hypokalemia Treated with fluids Had emergency dialysis----port was placed Later renal function improved--- port removed now much better Urine again came back positive for ecstasy I have discussed this again with/DNS--- at [facility] Will continue to follow--- medications reconciled Avoid NSAIDs Need to follow--- with GI also----elevated liver enzymes as well as hep C positive history of alcohol abuse in the past discontinue tramadol for now Discussed with nursing staff We will be following in prison Condition: Fair - Instructions Referrals: Kayla Garcia MD [Primary Care Provider] - - Home Medications Comprehensive Discharge Medication List: Ambulatory Orders Clonidine HCl 0.1 mg PO BID 10/05/17 Famotidine [Pepcid] 20 mg PO DAILY 10/05/17 Quetiapine Fumarate [Seroquel -] 50 mg PO BID 10/05/17 Bupropion HCl [Wellbutrin Xl] 300 mg PO DAILY #30 tab.er.24h 03/06/20 Quetiapine Fumarate [Seroquel -] 200 mg PO HS #30 tab 03/06/20 Tamsulosin HCl [Flomax] 0.4 mg PO DAILY #30 cap.er.24h 03/06/20 Acetaminophen 2 tab PO Q4H PRN 04/15/20 Amlodipine Besylate [Norvasc -] 10 mg PO DAILY 04/15/20 Levothyroxine [Synthroid -] 75 mcg PO DAILY 04/15/20 Melatonin 3 mg PO HS 04/15/20 Polyethylene Glycol 3350 [Miralax 119 gm Btl -] 17 gm PO DAILY 04/15/20 Albuterol 0.083% Nebulizer Brandee [Ventolin 0.083% Nebulizer Soln -] 1 amp NEB Q4H PRN amp 04/19/20 Calcium 500Mg/Vit-D 200 Units [Os-Kevin 500+D -] 2 tab PO DAILY tab 04/19/20 Insulin Sliding Scale [Novolog Vial Sliding Scale -] 1 vial SQ ACHS units 04/19 Sodium Zirconium Cyclosilicate [Lokelma] 10 gm PO DAILY packet 04/19/20
--- NOTE | 2020-04-19 13:35 | PN ---
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 (short form) - Note 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: RENAL pt denies complaints he is comfortable Last Vital Signs Temp Pulse Resp BP Pulse Ox 98.4 F 88 18 120/74 97 04/19/20 09:00 04/19/20 09:00 04/19/20 09:00 04/19/20 09:00 04/19/20 09:00 lungs dilma cvs s1s2 rr abd soft ext no edema neuro a+ox3 CBC, BMP 04/18/20 06:40 04/19/20 06:25 Current Medications Generic Name Dose Route Start Last Admin Trade Name Freq PRN Reason Stop Dose Admin Albuterol Sulfate 1 amp 04/16/20 22:00 Ventolin 0.083% Nebulizer Soln - NEB Q4H PRN SHORT OF BREATH/WHEEZING Bupropion HCl 300 mg 04/17/20 10:00 04/19/20 10:14 Wellbutrin Xl - PO 300 mg DAILY FRANCINE Administration Calcium Acetate 667 mg 04/16/20 18:00 04/19/20 12:36 Phoslo - PO 667 mg TIDCM FRANCINE Administration Calcium Carbonate/Cholecalciferol 2 tab 04/16/20 18:00 04/19/20 10:14 Os-Kevin 500+D - PO 2 tab DAILY FRANCINE Administration Famotidine 20 mg 04/17/20 10:00 04/19/20 10:15 Pepcid - PO 20 mg DAILY FRANCINE Administration Heparin Sodium (Porcine) 5,000 unit 04/16/20 22:00 04/19/20 06:20 Heparin - SQ 5,000 unit TID FRANCINE Administration Dextrose/Sodium Chloride 1,000 mls @ 125 mls/hr 04/16/20 22:00 04/19/20 06:20 D5-Ns - IV 125 mls/hr ASDIR FRANCINE Administration Sodium Chloride 250 mls @ 3,000 mls/hr 04/17/20 09:41 Normal Saline - IV 04/18/20 09:41 PRN PRN Hypotension during Dialysis Insulin Aspart 1 vial 04/16/20 22:00 04/19/20 12:06 Novolog Vial Sliding Scale - SQ Not Given ACHS FRANCINE Protocol Levothyroxine Sodium 75 mcg 04/17/20 07:00 04/19/20 06:20 Synthroid - PO 75 mcg 0700 FRANCINE Administration Melatonin 3 mg 04/16/20 22:00 04/18/20 21:08 Melatonin PO 3 mg HS FRANCINE Administration Polyethylene Glycol 17 gm 04/16/20 22:00 04/19/20 10:19 Miralax (For Daily Use) - PO 17 gm BID FRANCINE Administration Quetiapine Fumarate 200 mg 04/16/20 22:00 04/18/20 21:08 Seroquel - PO 200 mg HS FRANCINE Administration Sodium Zirconium Cyclosilicate 10 gm 04/19/20 10:00 04/19/20 10:14 Lokelma PO 10 gm DAILY FRANCINE Administration Impression 1. MOY resolved 2. hyperkalemia 3. altered mental status 4. hep c 5. htn 6. gerd 7. dm 8. met acidosis 9. corrected calcium is 9.5 Plan no objection to dc I gave him my card to follow up. He has seen me before will need to treat hep c MV
[2020-04-19 15:49] VITALS: BP 148/83; PULSE 100; TEMP 98.7
[2020-04-20 13:07] LABS: ANTIGLOMERULAR BASEMENT MEN.AB 3 units (0-20)
[2020-04-20 16:08] LABS: ATYPICAL pANCA <1:20 titer (Neg:<1:20); C-ANCA <1:20 titer (Neg:<1:20)
== END 2020-04-19 16:00 | disposition home or self-care (01) | DRG 469 ==
LOC: JER 20:37 → JERBED 04-15 01:56 → JICU 04-15 04:18 → J7W 04-16 21:40
PROVIDERS: ADMIT Internal Medicine; ATTEND Internal Medicine
PROC: 05HM33Z Insertion of Infusion Device into Right Internal Jugular Vein, Percutaneous Approach (ICD-10-PCS; principal; 2020-04-15)
PROC: B543ZZA Ultrasonography of Right Jugular Veins, Guidance (ICD-10-PCS; 2020-04-15)
PROC: 5A1D70Z Performance of Urinary Filtration, Intermittent, Less than 6 Hours Per Day (ICD-10-PCS; 2020-04-15)
DX: N17.9 Acute kidney failure, unspecified (principal); E87.5 Hyperkalemia; K21.9 Gastro-esophageal reflux disease without esophagitis; F32.9 Major depressive disorder, single episode, unspecified; F34.81 Disruptive mood dysregulation disorder; M62.82 Rhabdomyolysis; K70.10 Alcoholic hepatitis without ascites; D64.9 Anemia, unspecified; D69.6 Thrombocytopenia, unspecified; B19.20 Unspecified viral hepatitis C without hepatic coma; R79.89 Other specified abnormal findings of blood chemistry; R41.82 Altered mental status, unspecified; F19.94 Other psychoactive substance use, unspecified with psychoactive substance-induced mood disorder; E03.9 Hypothyroidism, unspecified; E87.2 Acidosis; K59.00 Constipation, unspecified; E83.51 Hypocalcemia; E86.0 Dehydration; E11.22 Type 2 diabetes mellitus with diabetic chronic kidney disease; E11.649 Type 2 diabetes mellitus with hypoglycemia without coma; G93.41 Metabolic encephalopathy; K40.20 Bilateral inguinal hernia, without obstruction or gangrene, not specified as recurrent; J98.11 Atelectasis; E87.1 Hypo-osmolality and hyponatremia; I12.9 Hypertensive chronic kidney disease with stage 1 through stage 4 chronic kidney disease, or unspecified chronic kidney disease; N18.3 Chronic kidney disease, stage 3 (moderate); J44.9 Chronic obstructive pulmonary disease, unspecified; F11.10 Opioid abuse, uncomplicated; G40.909 Epilepsy, unspecified, not intractable, without status epilepticus; E83.39 Other disorders of phosphorus metabolism; R94.31 Abnormal electrocardiogram [ECG] [EKG]; F20.9 Schizophrenia, unspecified
CPT/HCPCS: 36415; 36600; 70450-TC; 71045-TC-FY; 71250-TC; 73610-TC-LT-FY; 73610-TC-RT-FY; 74176-TC; 80048; 80053; 80307; 81003; 82140; 82436; 82550; 82553; 82565; 82728; 82803; 82962; 83036; 83516; 83520; 83605; 83690; 83735; 83874; 83930; 83935; 84100; 84155; 84156; 84165; 84300; 84439; 84443; 84484; 84550; 85025; 85027; 85610; 85651; 85730; 86038; 86160; 86225; 86256; 86704; 86705; 86706; 86707; 86708; 86709; 86803; 86850; 86900; 86901; 87086; 87340; 87350; 87522; 93005; 93010; 99291; 99292; G0480; J1644; U0003

== ENCOUNTER 2020-09-16 09:50 | Day surgery (SDC) | payer OTHER ==
[2020-09-14 16:30] VITALS: BMI 35.2
[2020-09-16] MEDS ORDERED: LIDOCAINE HCL/PF 2% SDV 5ML VIAL ONE (10:37)
[2020-09-16] MEDS ORDERED: PROPOFOL 20 ML ONE ×8 (10:37→11:44)
[2020-09-16 12:04] VITALS: PULSE 75; TEMP 97.8
[2020-09-16 12:24] VITALS: BP 121/92
== END 2020-09-16 12:34 | disposition home or self-care (01) ==
LOC: FASU-ENDO 09:50
PROVIDERS: ATTEND Internal Medicine Gastroenterology
PROC: 0DJD8ZZ Inspection of Lower Intestinal Tract, Via Natural or Artificial Opening Endoscopic (ICD-10-PCS; principal; 2020-09-16 11:32)
DX: Z12.11 Encounter for screening for malignant neoplasm of colon (principal); K64.1 Second degree hemorrhoids

== ENCOUNTER 2021-08-22 11:59 | Inpatient (IN) | payer OTHER ==
[2021-08-22] MEDS ORDERED: SODIUM CHLORIDE 0.9% 500 ML INFUS.BAG IV ONE (12:18)
[2021-08-22] MEDS ORDERED: ACETAMINOPHEN 1000 MG/100 ML BAG IVPB ONE (12:23)
[2021-08-22] MEDS ORDERED: PIPERACILLIN/TAZOB 4.5 GM 4.5 GM in DEXTROSE 5%-WATER 100 ML IVPB ONE (12:57)
[2021-08-22] MEDS ORDERED: VANCOMYCIN 1 GM in D5W (PRE-DOCKED) 1,000 MG/250 ML IVPB ONE (12:57)
[2021-08-22] MEDS ORDERED: PIPERACILLIN/TAZOB 4.5 GM 4.5 GM/100 ML BAG IVPB ONE (13:30)
[2021-08-22] MEDS ORDERED: VANCOMYCIN 1 GRAM (PRE-DOCKED) 1,000 MG/250 ML BAG IVPB ONE (13:30)
[2021-08-22] MEDS ORDERED: ACETAMINOPHEN INJECTION 100 ML IVPB ONE (13:30)
[2021-08-22 13:40] LABS: HEMATOCRIT 36.1 % (35.4-49); HEMOGLOBIN 12.1 GM/dL (11.7-16.9); MCH 31.7 pg (25.7-33.7); MCHC 33.5 g/dl (32.0-35.9); MEAN CELL VOLUME 94.8 fl (80-96); MEAN PLT VOLUME 11.2 fl (7.5-11.1); PLATELET COUNT 56 10^3/uL (134-434); RBC 3.81 M/mm3 (4.00-5.60); WHITE BLOOD COUNT 9.7 K/mm3 (4.0-10.0)
[2021-08-22 13:51] LABS: INR 1.44 (0.83-1.09); PROTHROMBIN TIME (PATIENT) 16.2 SEC (9.7-13.0)
[2021-08-22 13:52] LABS: CHLORIDE 105 mmol/L (98-107); SODIUM 136 mmol/L (136-145)
[2021-08-22 13:54] LABS: ACTIVATED PTT 32.7 SECONDS (25.2-36.5)
[2021-08-22 13:55] LABS: ALBUMIN 2.1 g/dl (3.4-5.0); ANION GAP 9 MMOL/L (8-16); BLOOD UREA NITROGEN 35.5 mg/dL (7-18); CALCIUM 8.5 mg/dL (8.5-10.1); CO2 23 mmol/L (21-32); GLUCOSE,RANDOM 89 mg/dL (74-106)
[2021-08-22 13:58] LABS: CREATININE 1.8 mg/dL (0.55-1.3); SGOT/AST 106 U/L (15-37); SGPT/ALT 118 U/L (13-61)
[2021-08-22 13:59] LABS: BILIRUBIN,TOTAL 5.3 mg/dL (0.2-1)
[2021-08-22 14:00] LABS: TOT PROT 7.2 g/dl (6.4-8.2)
[2021-08-22 14:01] LABS: ALK PHOS 143 U/L (45-117)
[2021-08-22 14:21] LABS: ANISOCYTOSIS 1+; MACROCYTOSIS 0; PLATELET ESTIMATE DECREASED
[2021-08-22] MEDS ORDERED: morphine CARPU-JECT 4 MG/1 ML DISP.SYRIN IVPUSH ONE (16:47)
[2021-08-22] MEDS ORDERED: morphine SULFATE 4 MG/ML VIAL ONE (16:52)
[2021-08-22 21:48] LABS: PH,URINE 5.5 (5.0-8.0); URINE APPEARANCE CLEAR; URINE BILIRUBIN 2+ (NEGATIVE); URINE COLOR DK YELLOW; URINE GLUCOSE (UA) NEGATIVE (NEGATIVE); URINE KETONE NEGATIVE (NEGATIVE); URINE LEUK ESTERASE NEGATIVE (NEGATIVE); URINE NITRITE NEGATIVE (NEGATIVE); URINE PROTEIN NEGATIVE (NEGATIVE)
[2021-08-23] MEDS ORDERED: PIPERACILLIN/TAZOB 3.375 GM 3.375 GM in DEXTROSE 5%-WATER - 50 ML IVPB SCH (10:00)
[2021-08-23 10:23] LABS: HEMATOCRIT 33.3 % (35.4-49); HEMOGLOBIN 11.2 GM/dL (11.7-16.9); MCH 31.6 pg (25.7-33.7); MCHC 33.7 g/dl (32.0-35.9); MEAN CELL VOLUME 93.6 fl (80-96); MEAN PLT VOLUME 10.8 fl (7.5-11.1); PLATELET COUNT 75 10^3/uL (134-434); RBC 3.56 M/mm3 (4.00-5.60); RDW 14.5 % (11.9-15.9); WHITE BLOOD COUNT 18.2 K/mm3 (4.0-10.0)
[2021-08-23 10:46] LABS: CALCIUM 8.1 mg/dL (8.5-10.1)
[2021-08-23 10:47] LABS: ALBUMIN 1.9 g/dl (3.4-5.0); BLOOD UREA NITROGEN 34.6 mg/dL (7-18)
[2021-08-23 10:50] LABS: CREATININE 1.8 mg/dL (0.55-1.3)
[2021-08-23 10:51] LABS: BILIRUBIN,TOTAL 4.4 mg/dL (0.2-1)
[2021-08-23] MEDS ORDERED: PIPERACILLIN/TAZOB 3.375 GM 3.375 GM/50 ML BAG IVPB ONE (10:51)
[2021-08-23 10:52] LABS: TOT PROT 6.8 g/dl (6.4-8.2)
[2021-08-23 11:30] LABS: ANISOCYTOSIS 0; MACROCYTOSIS 0; OVALOCYTE 1+; PLATELET ESTIMATE DECREASED; ROULEAU 1+
[2021-08-23] MEDS: SODIUM CHLORIDE 1,000 ML IV SCH ×2 (11:38→15:23)
[2021-08-23] MEDS ORDERED: VANCOMYCIN 1 GRAM (PRE-DOCKED) 1,000 MG/250 ML BAG IVPB SCH (13:00)
[2021-08-23] MEDS ORDERED: VANCOMYCIN 1,000 MG in DEXTROSE 5%-WATER - 250 ML IVPB SCH (13:00)
[2021-08-23] MEDS: VANCOMYCIN 1 GRAM (PRE-DOCKED) 1,000 MG/250 ML BAG IVPB SCH (15:24)
[2021-08-23] MEDS ORDERED: PIPERACILLIN/TAZOBACTAM 2.25 GM VIAL IVPB ONE (17:31)
[2021-08-23] MEDS ORDERED: DEXTROSE 5%-WATER - 50 ML IVPB ONE (17:32)
[2021-08-23] MEDS: PIPERACILLIN/TAZOB 2.25 GM 2.25 GM in DEXTROSE 5%-WATER - 50 ML IVPB SCH (18:15)
[2021-08-23] MEDS: ACETAMINOPHEN 325 MG TABLET (FP) PO PRN (18:21)
[2021-08-23 18:48] VITALS: BMI 33.7
[2021-08-23 19:52] LABS: URIC ACID 7.1 mg/dL (2.6-7.2)
[2021-08-23] MEDS: HEPARIN NA (PORCINE) 5,000 UNITS/ML 1ML VIAL SQ SCH (21:45)
[2021-08-24] MEDS ORDERED: PIPERACILLIN/TAZOBACTAM 2.25 GM VIAL IVPB ONE ×3 (01:51→16:55)
[2021-08-24] MEDS ORDERED: DEXTROSE 5%-WATER - 50 ML IVPB ONE ×3 (01:51→16:55)
[2021-08-24] MEDS: PIPERACILLIN/TAZOB 2.25 GM 2.25 GM in DEXTROSE 5%-WATER - 50 ML IVPB SCH ×3 (02:18→17:41)
[2021-08-24] MEDS: ACETAMINOPHEN 325 MG TABLET (FP) PO PRN ×3 (04:31→21:25)
[2021-08-24] MEDS: SODIUM CHLORIDE 1,000 ML IV SCH (08:04)
[2021-08-24] MEDS: HEPARIN NA (PORCINE) 5,000 UNITS/ML 1ML VIAL SQ SCH ×2 (11:07→21:25)
[2021-08-24 13:15] LABS: BASO % 0.3 % (0-2.0); EOS % 0.2 % (0-4.5); HEMATOCRIT 37.5 % (35.4-49); HEMOGLOBIN 12.7 GM/dL (11.7-16.9); LYMPH % 8.3 % (8-40); MCH 31.6 pg (25.7-33.7); MCHC 33.7 g/dl (32.0-35.9); MEAN CELL VOLUME 93.6 fl (80-96); MEAN PLT VOLUME 10.8 fl (7.5-11.1); MONO % 5.1 % (3.8-10.2); NEUT % 86.1 % (42.8-82.8); PLATELET COUNT 93 10^3/uL (134-434); RBC 4.01 M/mm3 (4.00-5.60); WHITE BLOOD COUNT 17.7 K/mm3 (4.0-10.0)
[2021-08-24] MEDS: traMADol HCL 50 MG TABLET PO PRN ×2 (13:23→21:29)
[2021-08-24 13:39] LABS: CALCIUM 7.9 mg/dL (8.5-10.1)
[2021-08-24 13:40] LABS: ALBUMIN 2.2 g/dl (3.4-5.0); BLOOD UREA NITROGEN 28.2 mg/dL (7-18)
[2021-08-24 13:42] LABS: CREATININE 1.5 mg/dL (0.55-1.3)
[2021-08-24 13:44] LABS: BILIRUBIN,TOTAL 5.8 mg/dL (0.2-1); TOT PROT 7.1 g/dl (6.4-8.2)
[2021-08-24 14:15] LABS: INR 1.78 (0.83-1.09); PROTHROMBIN TIME (PATIENT) 20.1 SEC (9.7-13.0)
[2021-08-24] MEDS: VANCOMYCIN 1 GRAM (PRE-DOCKED) 1,000 MG/250 ML BAG IVPB SCH (15:34)
[2021-08-25] MEDS ORDERED: PIPERACILLIN/TAZOBACTAM 2.25 GM VIAL IVPB ONE ×3 (01:03→16:03)
[2021-08-25] MEDS ORDERED: DEXTROSE 5%-WATER - 50 ML IVPB ONE ×3 (01:03→16:03)
[2021-08-25] MEDS: SODIUM CHLORIDE 1,000 ML IV SCH ×3 (01:26→18:38)
[2021-08-25] MEDS: PIPERACILLIN/TAZOB 2.25 GM 2.25 GM in DEXTROSE 5%-WATER - 50 ML IVPB SCH ×3 (01:26→17:58)
[2021-08-25] MEDS: traMADol HCL 50 MG TABLET PO PRN ×3 (04:31→17:57)
[2021-08-25] MEDS: ACETAMINOPHEN 325 MG TABLET (FP) PO PRN ×3 (04:32→17:58)
[2021-08-25] MEDS: HEPARIN NA (PORCINE) 5,000 UNITS/ML 1ML VIAL SQ SCH ×2 (09:22→22:04)
[2021-08-25 13:01] LABS: HEMATOCRIT 31.2 % (35.4-49); HEMOGLOBIN 10.8 GM/dL (11.7-16.9); MCH 32.1 pg (25.7-33.7); MCHC 34.7 g/dl (32.0-35.9); MEAN CELL VOLUME 92.6 fl (80-96); MEAN PLT VOLUME 9.5 fl (7.5-11.1); PLATELET COUNT 109 10^3/uL (134-434); RBC 3.38 M/mm3 (4.00-5.60); RDW 14.8 % (11.9-15.9); WHITE BLOOD COUNT 18.7 K/mm3 (4.0-10.0)
[2021-08-25 13:33] LABS: BLOOD UREA NITROGEN 21.9 mg/dL (7-18); CALCIUM 7.4 mg/dL (8.5-10.1)
[2021-08-25 13:35] LABS: BILIRUBIN,TOTAL 4.1 mg/dL (0.2-1); TOT PROT 6.8 g/dl (6.4-8.2)
[2021-08-25 13:36] LABS: CREATININE 1.3 mg/dL (0.55-1.3)
[2021-08-25 13:37] LABS: ANISOCYTOSIS 1+; MACROCYTOSIS 0; PLATELET ESTIMATE DECREASED
[2021-08-25 14:02] LABS: ALBUMIN 1.8 g/dl (3.4-5.0)
[2021-08-25] MEDS: VANCOMYCIN 1 GRAM (PRE-DOCKED) 1,000 MG/250 ML BAG IVPB SCH (15:49)
[2021-08-25] MEDS ORDERED: PHYTONADIONE 10 MG/1 ML AMP IVPB ONE (16:15)
[2021-08-26] MEDS: ACETAMINOPHEN 325 MG TABLET (FP) PO PRN ×3 (00:23→20:00)
[2021-08-26] MEDS: traMADol HCL 50 MG TABLET PO PRN ×3 (00:24→20:01)
[2021-08-26] MEDS ORDERED: PIPERACILLIN/TAZOBACTAM 2.25 GM VIAL IVPB ONE ×3 (00:40→18:28)
[2021-08-26] MEDS ORDERED: DEXTROSE 5%-WATER - 50 ML IVPB ONE ×3 (00:41→18:29)
[2021-08-26] MEDS: PIPERACILLIN/TAZOB 2.25 GM 2.25 GM in DEXTROSE 5%-WATER - 50 ML IVPB SCH ×3 (01:21→18:42)
[2021-08-26] MEDS: SODIUM CHLORIDE 1,000 ML IV SCH (09:46)
[2021-08-26] MEDS: HEPARIN NA (PORCINE) 5,000 UNITS/ML 1ML VIAL SQ SCH ×2 (09:46→21:22)
[2021-08-26 11:11] LABS: CHLORIDE 103 mmol/L (98-107); SODIUM 132 mmol/L (136-145)
[2021-08-26 11:17] LABS: CALCIUM 7.1 mg/dL (8.5-10.1)
[2021-08-26 11:18] LABS: ANION GAP 12 MMOL/L (8-16); BLOOD UREA NITROGEN 20.3 mg/dL (7-18); CO2 17 mmol/L (21-32)
[2021-08-26 11:21] LABS: CREATININE 1.4 mg/dL (0.55-1.3); SGOT/AST 132 U/L (15-37); SGPT/ALT 84 U/L (13-61)
[2021-08-26 11:22] LABS: BILIRUBIN,TOTAL 4.4 mg/dL (0.2-1); TOT PROT 7.3 g/dl (6.4-8.2)
[2021-08-26 11:23] LABS: ALK PHOS 186 U/L (45-117)
[2021-08-26 11:24] LABS: GLUCOSE,RANDOM 31 mg/dL (74-106)
[2021-08-26] MEDS ORDERED: DEXTROSE 5%-NORMAL SALINE 1,000 ML IV SCH (11:45)
[2021-08-26] MEDS ORDERED: DEXTROSE 50%-WATER 25 GM/50 ML DISP.SYRIN ONE (11:54)
[2021-08-26] MEDS ORDERED: DEXTROSE 50%-WATER - 25 GM/50 ML VIAL IVPUSH ONE (12:00)
[2021-08-26 15:56] LABS: HEMATOCRIT 29.8 % (35.4-49); HEMOGLOBIN 10.1 GM/dL (11.7-16.9); MCH 31.8 pg (25.7-33.7); MCHC 33.8 g/dl (32.0-35.9); MEAN CELL VOLUME 93.9 fl (80-96); MEAN PLT VOLUME 9.3 fl (7.5-11.1); PLATELET COUNT 129 10^3/uL (134-434); RBC 3.18 M/mm3 (4.00-5.60); WHITE BLOOD COUNT 19.9 K/mm3 (4.0-10.0)
[2021-08-26] MEDS: VANCOMYCIN 1 GRAM (PRE-DOCKED) 1,000 MG/250 ML BAG IVPB SCH (16:28)
[2021-08-26] MEDS ORDERED: ACETAMINOPHEN 1000 MG/100 ML BAG IVPB ONE (20:15)
[2021-08-27] MEDS ORDERED: PIPERACILLIN/TAZOBACTAM 2.25 GM VIAL IVPB ONE ×3 (01:15→18:41)
[2021-08-27] MEDS ORDERED: DEXTROSE 5%-WATER - 50 ML IVPB ONE ×3 (01:15→18:41)
[2021-08-27] MEDS: PIPERACILLIN/TAZOB 2.25 GM 2.25 GM in DEXTROSE 5%-WATER - 50 ML IVPB SCH ×3 (01:51→18:52)
[2021-08-27] MEDS: traMADol HCL 50 MG TABLET PO PRN (05:42)
[2021-08-27 09:09] LABS: BASO % 0.6 % (0-2.0); EOS % 0.4 % (0-4.5); HEMATOCRIT 29.4 % (35.4-49); HEMOGLOBIN 9.8 GM/dL (11.7-16.9); LYMPH % 8.7 % (8-40); MCH 31.5 pg (25.7-33.7); MCHC 33.3 g/dl (32.0-35.9); MEAN CELL VOLUME 94.5 fl (80-96); MEAN PLT VOLUME 9.8 fl (7.5-11.1); MONO % 3.9 % (3.8-10.2); NEUT % 86.4 % (42.8-82.8); PLATELET COUNT 142 10^3/uL (134-434); RBC 3.11 M/mm3 (4.00-5.60); RDW 14.8 % (11.9-15.9); WHITE BLOOD COUNT 15.2 K/mm3 (4.0-10.0)
[2021-08-27 09:21] LABS: CHLORIDE 106 mmol/L (98-107); SODIUM 135 mmol/L (136-145)
[2021-08-27 09:23] LABS: ANION GAP 10 MMOL/L (8-16); CO2 18 mmol/L (21-32)
[2021-08-27 09:24] LABS: ALBUMIN 1.8 g/dl (3.4-5.0); GLUCOSE,RANDOM 81 mg/dL (74-106)
[2021-08-27 09:27] LABS: CREATININE 1.1 mg/dL (0.55-1.3); SGOT/AST 106 U/L (15-37); SGPT/ALT 70 U/L (13-61)
[2021-08-27 09:28] LABS: BILIRUBIN,TOTAL 3.2 mg/dL (0.2-1); TOT PROT 6.7 g/dl (6.4-8.2)
[2021-08-27 09:29] LABS: ALK PHOS 160 U/L (45-117)
[2021-08-27 09:32] LABS: CALCIUM 6.7 mg/dL (8.5-10.1)
[2021-08-27] MEDS: HEPARIN NA (PORCINE) 5,000 UNITS/ML 1ML VIAL SQ SCH (10:18)
[2021-08-27 12:13] LABS: INR 1.7 (0.83-1.09); PROTHROMBIN TIME (PATIENT) 19.6 SEC (9.7-13.0)
[2021-08-27] MEDS ORDERED: CALCIUM GLUCONATE IN NACL 1 GM/50 ML BAG IVPB ONE ×2 (13:00→16:00)
[2021-08-27] MEDS ORDERED: VANCOMYCIN 1,000 MG VIAL (RESTRICTED TO ID ONLY) IVPB ONE (14:40)
[2021-08-27] MEDS ORDERED: DEXTROSE 5%-NORMAL SALINE 1,000 ML IV SCH (15:48)
[2021-08-27] MEDS: ACETAMINOPHEN 325 MG TABLET (FP) PO PRN (21:55)
[2021-08-27] MEDS ORDERED: HEPARIN NA (PORCINE) 5,000 UNITS/ML 1ML VIAL SQ SCH (22:00)
[2021-08-28] MEDS ORDERED: DEXTROSE 5%-WATER - 50 ML IVPB ONE ×3 (01:16→18:36)
[2021-08-28] MEDS ORDERED: PIPERACILLIN/TAZOBACTAM 2.25 GM VIAL IVPB ONE ×3 (01:16→18:36)
[2021-08-28] MEDS: PIPERACILLIN/TAZOB 2.25 GM 2.25 GM in DEXTROSE 5%-WATER - 50 ML IVPB SCH ×3 (01:45→18:46)
[2021-08-28 04:43] LABS: HEMATOCRIT 22.8 % (35.4-49); HEMOGLOBIN 7.8 GM/dL (11.7-16.9); MCHC 34.3 g/dl (32.0-35.9); MEAN CELL VOLUME 93.3 fl (80-96); MEAN PLT VOLUME 9.2 fl (7.5-11.1); PLATELET COUNT 110 10^3/uL (134-434); RBC 2.44 M/mm3 (4.00-5.60); RDW 14.6 % (11.9-15.9); WHITE BLOOD COUNT 11.7 K/mm3 (4.0-10.0)
[2021-08-28 05:03] LABS: CHLORIDE 107 mmol/L (98-107); SODIUM 135 mmol/L (136-145)
[2021-08-28 05:05] LABS: ANION GAP 8 MMOL/L (8-16); CO2 19 mmol/L (21-32)
[2021-08-28 05:06] LABS: ALBUMIN 1.5 g/dl (3.4-5.0); BLOOD UREA NITROGEN 20.4 mg/dL (7-18); GLUCOSE,RANDOM 83 mg/dL (74-106)
[2021-08-28 05:08] LABS: CREATININE 1.2 mg/dL (0.55-1.3); SGOT/AST 94 U/L (15-37)
[2021-08-28 05:10] LABS: BILIRUBIN,TOTAL 2.7 mg/dL (0.2-1); TOT PROT 5.7 g/dl (6.4-8.2)
[2021-08-28 05:11] LABS: ALK PHOS 136 U/L (45-117)
[2021-08-28 05:13] LABS: CALCIUM 6.1 mg/dL (8.5-10.1); SGPT/ALT 61 U/L (13-61)
[2021-08-28] MEDS ORDERED: PANTOPRAZOLE SODIUM 40 MG VIAL IVPUSH ONE (05:31)
[2021-08-28 05:32] LABS: ANISOCYTOSIS 2+; MACROCYTOSIS 2+; PLATELET ESTIMATE DECREASED
[2021-08-28] MEDS: ACETAMINOPHEN 325 MG TABLET (FP) PO PRN ×2 (10:19→21:57)
[2021-08-28] MEDS: VANCOMYCIN 1 GRAM (PRE-DOCKED) 1,000 MG/250 ML BAG IVPB SCH ×2 (11:15→16:02)
[2021-08-28] MEDS: morphine SULFATE 4 MG/ML VIAL IVPUSH PRN ×2 (12:15→18:48)
[2021-08-28 13:00] LABS: HEMATOCRIT 23.6 % (35.4-49); HEMOGLOBIN 8.3 GM/dL (11.7-16.9); MCH 32.8 pg (25.7-33.7); MEAN CELL VOLUME 93.7 fl (80-96); MEAN PLT VOLUME 8.9 fl (7.5-11.1); PLATELET COUNT 128 10^3/uL (134-434); RBC 2.52 M/mm3 (4.00-5.60); RDW 14.9 % (11.9-15.9); WHITE BLOOD COUNT 10.2 K/mm3 (4.0-10.0)
[2021-08-28 13:01] LABS: INR 1.64 (0.83-1.09); PROTHROMBIN TIME (PATIENT) 18.9 SEC (9.7-13.0)
[2021-08-28] MEDS ORDERED: OCTREOTIDE ACETATE 50 MCG/1 ML - 1 ML VIAL IVPUSH ONE (13:08)
[2021-08-28 13:15] LABS: ALBUMIN 1.5 g/dl (3.4-5.0)
[2021-08-28 13:19] LABS: SGOT/AST 97 U/L (15-37); SGPT/ALT 62 U/L (13-61)
[2021-08-28 13:20] LABS: BILIRUBIN,TOTAL 2.4 mg/dL (0.2-1); TOT PROT 5.8 g/dl (6.4-8.2)
[2021-08-28 13:22] LABS: ALK PHOS 128 U/L (45-117)
[2021-08-28] MEDS ORDERED: CALCIUM GLUCONATE 10% - 1,000 MG/10 ML VIAL IVPB ONE (13:23)
[2021-08-28] MEDS ORDERED: CALCIUM GLUCONATE IN NACL 1 GM/50 ML BAG IVPB ONE (14:15)
[2021-08-28 14:27] LABS: CHLORIDE 108 mmol/L (98-107); SODIUM 137 mmol/L (136-145)
[2021-08-28 14:29] LABS: ANION GAP 10 MMOL/L (8-16); BLOOD UREA NITROGEN 18.5 mg/dL (7-18); CO2 19 mmol/L (21-32); GLUCOSE,RANDOM 72 mg/dL (74-106)
[2021-08-28 14:39] LABS: CALCIUM 6.4 mg/dL (8.5-10.1)
[2021-08-28] MEDS: LEVOTHYROXINE NA 75 MCG TABLET (FP) PO SCH (16:01)
[2021-08-28] MEDS ORDERED: PT OWN MED DRAWER 7, Y5N ONE (16:34)
[2021-08-28] MEDS: CALCIUM ACETATE 667 MG CAPSULE (FP) PO SCH (16:40)
[2021-08-28 17:32] LABS: HIV INTERPRETATION NEGATIVE (NEGATIVE)
[2021-08-28] MEDS: PANTOPRAZOLE SODIUM 40 MG VIAL IVPUSH SCH (17:52)
[2021-08-28] MEDS: OCTREOTIDE ACETATE 200 MCG, OCTREOTIDE ACETATE 1,000 MCG in DEXTROSE 5%-WATER - 496 ML IVPB SCH (19:01)
[2021-08-29] MEDS ORDERED: PIPERACILLIN/TAZOBACTAM 2.25 GM VIAL IVPB ONE ×3 (02:15→17:39)
[2021-08-29] MEDS ORDERED: DEXTROSE 5%-WATER - 50 ML IVPB ONE ×3 (02:15→17:40)
[2021-08-29] MEDS: PIPERACILLIN/TAZOB 2.25 GM 2.25 GM in DEXTROSE 5%-WATER - 50 ML IVPB SCH ×3 (02:27→17:48)
[2021-08-29] MEDS: PANTOPRAZOLE SODIUM 40 MG VIAL IVPUSH SCH ×2 (05:53→17:49)
[2021-08-29] MEDS: LEVOTHYROXINE NA 75 MCG TABLET (FP) PO SCH (05:59)
[2021-08-29] MEDS: CALCIUM ACETATE 667 MG CAPSULE (FP) PO SCH ×3 (08:19→18:03)
[2021-08-29] MEDS: ACETAMINOPHEN 325 MG TABLET (FP) PO PRN ×2 (09:42→22:43)
[2021-08-29] MEDS: morphine SULFATE 4 MG/ML VIAL IVPUSH PRN (09:43)
[2021-08-29] MEDS ORDERED: metoPROLOL SUCCINATE 25 MG TAB.SR.24H (FP) PO SCH (10:00)
[2021-08-29 12:15] LABS: BASO % 0.9 % (0-2.0); EOS % 0.9 % (0-4.5); HEMATOCRIT 25.2 % (35.4-49); HEMOGLOBIN 8.4 GM/dL (11.7-16.9); LYMPH % 10.4 % (8-40); MCH 31.8 pg (25.7-33.7); MCHC 33.2 g/dl (32.0-35.9); MEAN CELL VOLUME 95.9 fl (80-96); MEAN PLT VOLUME 9.6 fl (7.5-11.1); MONO % 4.5 % (3.8-10.2); NEUT % 83.3 % (42.8-82.8); PLATELET COUNT 148 10^3/uL (134-434); RBC 2.62 M/mm3 (4.00-5.60); RDW 15.1 % (11.9-15.9); WHITE BLOOD COUNT 14.2 K/mm3 (4.0-10.0)
[2021-08-29 12:26] LABS: CHLORIDE 102 mmol/L (98-107); SODIUM 132 mmol/L (136-145)
[2021-08-29 12:29] LABS: ALBUMIN 1.7 g/dl (3.4-5.0); ANION GAP 11 MMOL/L (8-16); BLOOD UREA NITROGEN 16.2 mg/dL (7-18); CO2 19 mmol/L (21-32); GLUCOSE,RANDOM 97 mg/dL (74-106)
[2021-08-29 12:32] LABS: CREATININE 1.1 mg/dL (0.55-1.3); SGOT/AST 98 U/L (15-37); SGPT/ALT 65 U/L (13-61)
[2021-08-29 12:34] LABS: BILIRUBIN,TOTAL 2.3 mg/dL (0.2-1); TOT PROT 6.5 g/dl (6.4-8.2)
[2021-08-29 12:35] LABS: ALK PHOS 135 U/L (45-117)
[2021-08-29 13:01] LABS: CALCIUM 6.9 mg/dL (8.5-10.1)
[2021-08-29] MEDS ORDERED: PT OWN MED DRAWER 7, Y5N ONE ×2 (16:18→16:56)
[2021-08-29] MEDS: OCTREOTIDE ACETATE 200 MCG, OCTREOTIDE ACETATE 1,000 MCG in DEXTROSE 5%-WATER - 496 ML IVPB SCH (17:33)
[2021-08-29] MEDS: VANCOMYCIN 1 GRAM (PRE-DOCKED) 1,000 MG/250 ML BAG IVPB SCH (20:11)
[2021-08-30] MEDS ORDERED: DEXTROSE 5%-WATER - 50 ML IVPB ONE ×3 (02:52→16:37)
[2021-08-30] MEDS ORDERED: PIPERACILLIN/TAZOBACTAM 2.25 GM VIAL IVPB ONE ×3 (02:52→16:37)
[2021-08-30] MEDS: PIPERACILLIN/TAZOB 2.25 GM 2.25 GM in DEXTROSE 5%-WATER - 50 ML IVPB SCH ×3 (02:53→17:16)
[2021-08-30] MEDS: PANTOPRAZOLE SODIUM 40 MG VIAL IVPUSH SCH ×2 (06:19→17:07)
[2021-08-30] MEDS: LEVOTHYROXINE NA 75 MCG TABLET (FP) PO SCH (06:20)
[2021-08-30] MEDS: CALCIUM ACETATE 667 MG CAPSULE (FP) PO SCH ×3 (08:53→17:07)
[2021-08-30 09:32] LABS: BASO % 0.9 % (0-2.0); EOS % 1.1 % (0-4.5); HEMATOCRIT 24.8 % (35.4-49); HEMOGLOBIN 8.3 GM/dL (11.7-16.9); LYMPH % 15.3 % (8-40); MCH 32.4 pg (25.7-33.7); MCHC 33.5 g/dl (32.0-35.9); MEAN CELL VOLUME 96.6 fl (80-96); MEAN PLT VOLUME 9.1 fl (7.5-11.1); MONO % 5.7 % (3.8-10.2); PLATELET COUNT 166 10^3/uL (134-434); RBC 2.57 M/mm3 (4.00-5.60); WHITE BLOOD COUNT 11.7 K/mm3 (4.0-10.0)
[2021-08-30] MEDS: morphine SULFATE 4 MG/ML VIAL IVPUSH PRN ×2 (11:31→18:18)
[2021-08-30] MEDS: VANCOMYCIN/WATER BAGS 1,250 MG/250 ML BAG IVPB SCH ×2 (11:45→22:09)
[2021-08-30] MEDS: OCTREOTIDE ACETATE 200 MCG, OCTREOTIDE ACETATE 1,000 MCG in DEXTROSE 5%-WATER - 496 ML IVPB SCH ×2 (14:35→17:18)
[2021-08-30] MEDS ORDERED: morphine SULFATE 4 MG/ML VIAL IVPB PRN (17:35)
[2021-08-31] MEDS: morphine SULFATE 4 MG/ML VIAL IVPUSH PRN ×2 (00:13→10:13)
[2021-08-31] MEDS ORDERED: PIPERACILLIN/TAZOBACTAM 2.25 GM VIAL IVPB ONE ×3 (01:52→17:10)
[2021-08-31] MEDS ORDERED: DEXTROSE 5%-WATER - 50 ML IVPB ONE ×3 (01:53→17:10)
[2021-08-31] MEDS: PIPERACILLIN/TAZOB 2.25 GM 2.25 GM in DEXTROSE 5%-WATER - 50 ML IVPB SCH ×3 (01:55→17:16)
[2021-08-31] MEDS: LEVOTHYROXINE NA 75 MCG TABLET (FP) PO SCH (06:00)
[2021-08-31] MEDS: PANTOPRAZOLE SODIUM 40 MG VIAL IVPUSH SCH (06:00)
[2021-08-31] MEDS: CALCIUM ACETATE 667 MG CAPSULE (FP) PO SCH ×3 (10:13→17:17)
[2021-08-31] MEDS: COLLAGENASE CLOSTRIDIUM HIST. 30 GRAMS TUBE TP SCH (10:28)
[2021-08-31] MEDS: VANCOMYCIN/WATER BAGS 1,250 MG/250 ML BAG IVPB SCH ×2 (12:13→22:36)
[2021-08-31 12:40] LABS: BASO % 0.5 % (0-2.0); EOS % 1.5 % (0-4.5); HEMATOCRIT 23.7 % (35.4-49); LYMPH % 18.4 % (8-40); MCH 32.4 pg (25.7-33.7); MCHC 33.6 g/dl (32.0-35.9); MEAN CELL VOLUME 96.4 fl (80-96); MEAN PLT VOLUME 8.5 fl (7.5-11.1); MONO % 5.9 % (3.8-10.2); NEUT % 73.7 % (42.8-82.8); PLATELET COUNT 156 10^3/uL (134-434); RBC 2.46 M/mm3 (4.00-5.60); RDW 15.2 % (11.9-15.9); WHITE BLOOD COUNT 8.8 K/mm3 (4.0-10.0)
[2021-08-31 13:55] LABS: ALBUMIN 1.7 g/dl (3.4-5.0); CALCIUM 7.5 mg/dL (8.5-10.1)
[2021-08-31 13:56] LABS: BLOOD UREA NITROGEN 15.8 mg/dL (7-18)
[2021-08-31 13:59] LABS: PHOSPHOROUS 2.9 mg/dL (2.5-4.9)
[2021-08-31 14:00] LABS: BILIRUBIN,TOTAL 2.1 mg/dL (0.2-1); TOT PROT 6.7 g/dl (6.4-8.2)
[2021-08-31] MEDS ORDERED: PT OWN MED DRAWER 7, Y5N ONE (16:59)
[2021-08-31] MEDS: OCTREOTIDE ACETATE 200 MCG, OCTREOTIDE ACETATE 1,000 MCG in DEXTROSE 5%-WATER - 496 ML IVPB SCH (17:22)
[2021-08-31] MEDS: PANTOPRAZOLE 40 MG TABLET PO SCH (21:31)
[2021-09-01] MEDS ORDERED: PIPERACILLIN/TAZOBACTAM 2.25 GM VIAL IVPB ONE ×3 (01:40→16:41)
[2021-09-01] MEDS ORDERED: DEXTROSE 5%-WATER - 50 ML IVPB ONE ×3 (01:41→16:41)
[2021-09-01] MEDS: PIPERACILLIN/TAZOB 2.25 GM 2.25 GM in DEXTROSE 5%-WATER - 50 ML IVPB SCH ×3 (02:36→17:30)
[2021-09-01] MEDS: LEVOTHYROXINE NA 75 MCG TABLET (FP) PO SCH (06:00)
[2021-09-01] MEDS: CALCIUM ACETATE 667 MG CAPSULE (FP) PO SCH ×3 (08:31→17:30)
[2021-09-01] MEDS: PANTOPRAZOLE 40 MG TABLET PO SCH (11:16)
[2021-09-01] MEDS: VANCOMYCIN/WATER BAGS 1,250 MG/250 ML BAG IVPB SCH ×2 (11:57→21:29)
[2021-09-01] MEDS: COLLAGENASE CLOSTRIDIUM HIST. 30 GRAMS TUBE TP SCH (17:28)
[2021-09-01 20:11] LABS: HCV RNA GENOTYPE 1a (.)
[2021-09-01] MEDS: ACETAMINOPHEN 325 MG TABLET (FP) PO PRN (21:36)
[2021-09-02] MEDS ORDERED: DEXTROSE 5%-WATER - 50 ML IVPB ONE ×3 (02:56→17:10)
[2021-09-02] MEDS ORDERED: PIPERACILLIN/TAZOBACTAM 2.25 GM VIAL IVPB ONE ×3 (02:56→17:09)
[2021-09-02] MEDS: PIPERACILLIN/TAZOB 2.25 GM 2.25 GM in DEXTROSE 5%-WATER - 50 ML IVPB SCH ×3 (02:58→17:14)
[2021-09-02] MEDS: LEVOTHYROXINE NA 75 MCG TABLET (FP) PO SCH (06:22)
[2021-09-02] MEDS: CALCIUM ACETATE 667 MG CAPSULE (FP) PO SCH ×3 (09:28→17:14)
[2021-09-02] MEDS: PANTOPRAZOLE 40 MG TABLET PO SCH (09:28)
[2021-09-02 10:48] LABS: HEMATOCRIT 25.9 % (35.4-49); HEMOGLOBIN 8.7 GM/dL (11.7-16.9); MCH 32.6 pg (25.7-33.7); MCHC 33.6 g/dl (32.0-35.9); MEAN CELL VOLUME 96.9 fl (80-96); MEAN PLT VOLUME 8.7 fl (7.5-11.1); PLATELET COUNT 164 10^3/uL (134-434); RBC 2.67 M/mm3 (4.00-5.60); RDW 15.6 % (11.9-15.9); WHITE BLOOD COUNT 7.6 K/mm3 (4.0-10.0)
[2021-09-02 10:48] LABS: INR 1.53 (0.83-1.09); PROTHROMBIN TIME (PATIENT) 17.7 SEC (9.7-13.0)
[2021-09-02] MEDS: VANCOMYCIN/WATER BAGS 1,250 MG/250 ML BAG IVPB SCH ×2 (12:01→21:56)
[2021-09-02] MEDS: COLLAGENASE CLOSTRIDIUM HIST. 30 GRAMS TUBE TP SCH (12:56)
[2021-09-03] MEDS ORDERED: PIPERACILLIN/TAZOBACTAM 2.25 GM VIAL IVPB ONE ×3 (02:27→18:37)
[2021-09-03] MEDS ORDERED: DEXTROSE 5%-WATER - 50 ML IVPB ONE ×3 (02:27→18:37)
[2021-09-03] MEDS: PIPERACILLIN/TAZOB 2.25 GM 2.25 GM in DEXTROSE 5%-WATER - 50 ML IVPB SCH ×3 (02:32→11:49)
[2021-09-03] MEDS: LEVOTHYROXINE NA 75 MCG TABLET (FP) PO SCH (06:35)
[2021-09-03] MEDS: PANTOPRAZOLE 40 MG TABLET PO SCH ×2 (09:06→11:49)
[2021-09-03] MEDS: CALCIUM ACETATE 667 MG CAPSULE (FP) PO SCH ×4 (09:06→18:00)
[2021-09-03] MEDS: VANCOMYCIN/WATER BAGS 1,250 MG/250 ML BAG IVPB SCH ×2 (13:32→21:36)
[2021-09-03] MEDS: oxyCODONE HCL 5 MG TABLET PO PRN ×2 (13:34→18:07)
[2021-09-03 15:47] LABS: BASO % 0.7 % (0-2.0); EOS % 1.5 % (0-4.5); HEMATOCRIT 25.3 % (35.4-49); HEMOGLOBIN 8.6 GM/dL (11.7-16.9); LYMPH % 27.1 % (8-40); MCH 33.2 pg (25.7-33.7); MCHC 34.2 g/dl (32.0-35.9); MEAN CELL VOLUME 97.1 fl (80-96); MEAN PLT VOLUME 8.3 fl (7.5-11.1); MONO % 7.4 % (3.8-10.2); NEUT % 63.3 % (42.8-82.8); PLATELET COUNT 153 10^3/uL (134-434); RDW 16.8 % (11.9-15.9); WHITE BLOOD COUNT 6.9 K/mm3 (4.0-10.0)
[2021-09-03 15:55] LABS: INR 1.56 (0.83-1.09)
[2021-09-03 15:58] LABS: ACTIVATED PTT 34.9 SECONDS (25.2-36.5)
[2021-09-03 16:07] LABS: BLOOD UREA NITROGEN 20.9 mg/dL (7-18)
[2021-09-03 16:10] LABS: CREATININE 1.1 mg/dL (0.55-1.3)
[2021-09-03 16:11] LABS: BILIRUBIN,TOTAL 1.8 mg/dL (0.2-1); TOT PROT 8.1 g/dl (6.4-8.2)
[2021-09-03] MEDS: COLLAGENASE CLOSTRIDIUM HIST. 30 GRAMS TUBE TP SCH (17:11)
[2021-09-03] MEDS ORDERED: PIPERACILLIN/TAZOB 2.25 GM 2.25 GM in DEXTROSE 5%-WATER - 50 ML IVPB ONE (18:16)
[2021-09-04] MEDS ORDERED: PIPERACILLIN/TAZOBACTAM 3.375 GM VIAL IVPB ONE ×3 (01:45→16:59)
[2021-09-04] MEDS ORDERED: DEXTROSE 5%-WATER - 50 ML IVPB ONE ×3 (01:45→16:59)
[2021-09-04] MEDS: PIPERACILLIN/TAZOB 3.375 GM 3.375 GM in DEXTROSE 5%-WATER - 50 ML IVPB SCH ×3 (02:01→17:02)
[2021-09-04] MEDS: LEVOTHYROXINE NA 75 MCG TABLET (FP) PO SCH (06:13)
[2021-09-04] MEDS: oxyCODONE HCL 5 MG TABLET PO PRN (09:27)
[2021-09-04] MEDS: CALCIUM ACETATE 667 MG CAPSULE (FP) PO SCH ×3 (09:29→17:01)
[2021-09-04] MEDS: PANTOPRAZOLE 40 MG TABLET PO SCH (09:29)
[2021-09-04] MEDS: VANCOMYCIN/WATER BAGS 1,250 MG/250 ML BAG IVPB SCH ×2 (12:48→21:48)
[2021-09-04] MEDS: COLLAGENASE CLOSTRIDIUM HIST. 30 GRAMS TUBE TP SCH (18:43)
[2021-09-05] MEDS ORDERED: PIPERACILLIN/TAZOBACTAM 3.375 GM VIAL IVPB ONE ×3 (02:03→18:01)
[2021-09-05] MEDS ORDERED: DEXTROSE 5%-WATER - 50 ML IVPB ONE ×3 (02:04→18:01)
[2021-09-05] MEDS: PIPERACILLIN/TAZOB 3.375 GM 3.375 GM in DEXTROSE 5%-WATER - 50 ML IVPB SCH ×4 (02:07→20:08)
[2021-09-05] MEDS: LEVOTHYROXINE NA 75 MCG TABLET (FP) PO SCH (06:36)
[2021-09-05] MEDS: PANTOPRAZOLE 40 MG TABLET PO SCH (09:51)
[2021-09-05] MEDS: CALCIUM ACETATE 667 MG CAPSULE (FP) PO SCH ×3 (09:51→18:04)
[2021-09-05] MEDS: VANCOMYCIN/WATER BAGS 1,250 MG/250 ML BAG IVPB SCH (10:54)
[2021-09-05] MEDS: COLLAGENASE CLOSTRIDIUM HIST. 30 GRAMS TUBE TP SCH (15:58)
[2021-09-06] MEDS ORDERED: PIPERACILLIN/TAZOBACTAM 3.375 GM VIAL IVPB ONE ×3 (00:50→17:56)
[2021-09-06] MEDS ORDERED: DEXTROSE 5%-WATER - 50 ML IVPB ONE ×3 (00:51→17:56)
[2021-09-06] MEDS: PIPERACILLIN/TAZOB 3.375 GM 3.375 GM in DEXTROSE 5%-WATER - 50 ML IVPB SCH ×3 (02:17→17:59)
[2021-09-06] MEDS: LEVOTHYROXINE NA 75 MCG TABLET (FP) PO SCH (06:43)
[2021-09-06] MEDS: CALCIUM ACETATE 667 MG CAPSULE (FP) PO SCH ×3 (09:06→17:59)
[2021-09-06] MEDS: PANTOPRAZOLE 40 MG TABLET PO SCH (09:06)
[2021-09-06 12:26] LABS: BASO % 1.1 % (0-2.0); HEMATOCRIT 26.9 % (35.4-49); HEMOGLOBIN 8.9 GM/dL (11.7-16.9); LYMPH % 22.9 % (8-40); MCH 32.8 pg (25.7-33.7); MCHC 33.2 g/dl (32.0-35.9); MEAN CELL VOLUME 98.6 fl (80-96); MEAN PLT VOLUME 8.8 fl (7.5-11.1); MONO % 9.3 % (3.8-10.2); NEUT % 64.7 % (42.8-82.8); PLATELET COUNT 121 10^3/uL (134-434); RBC 2.72 M/mm3 (4.00-5.60); RDW 18.1 % (11.9-15.9); WHITE BLOOD COUNT 5.4 K/mm3 (4.0-10.0)
[2021-09-06] MEDS: COLLAGENASE CLOSTRIDIUM HIST. 30 GRAMS TUBE TP SCH (13:15)
[2021-09-06 13:17] LABS: ALBUMIN 2.2 g/dl (3.4-5.0); BLOOD UREA NITROGEN 21.9 mg/dL (7-18); CALCIUM 8.9 mg/dL (8.5-10.1)
[2021-09-06 13:20] LABS: CREATININE 1.1 mg/dL (0.55-1.3)
[2021-09-06 13:22] LABS: BILIRUBIN,TOTAL 1.7 mg/dL (0.2-1); TOT PROT 8.6 g/dl (6.4-8.2)
[2021-09-07] MEDS ORDERED: PIPERACILLIN/TAZOBACTAM 3.375 GM VIAL IVPB ONE ×2 (00:31→10:08)
[2021-09-07] MEDS ORDERED: DEXTROSE 5%-WATER - 50 ML IVPB ONE ×2 (00:31→10:08)
[2021-09-07] MEDS: PIPERACILLIN/TAZOB 3.375 GM 3.375 GM in DEXTROSE 5%-WATER - 50 ML IVPB SCH ×2 (01:42→10:27)
[2021-09-07] MEDS: LEVOTHYROXINE NA 75 MCG TABLET (FP) PO SCH (06:30)
[2021-09-07] MEDS: CALCIUM ACETATE 667 MG CAPSULE (FP) PO SCH ×3 (08:46→17:42)
[2021-09-07] MEDS: PANTOPRAZOLE 40 MG TABLET PO SCH (10:27)
[2021-09-07] MEDS: COLLAGENASE CLOSTRIDIUM HIST. 30 GRAMS TUBE TP SCH (13:46)
[2021-09-07] MEDS: AMOX TR/POT CLAV 875MG/125MG TABLETS (FP) PO SCH (17:42)
[2021-09-07] MEDS: oxyCODONE HCL 5 MG TABLET PO PRN (23:52)
[2021-09-08] MEDS: LEVOTHYROXINE NA 75 MCG TABLET (FP) PO SCH (06:51)
[2021-09-08] MEDS: CALCIUM ACETATE 667 MG CAPSULE (FP) PO SCH ×3 (08:31→17:31)
[2021-09-08] MEDS: AMOX TR/POT CLAV 875MG/125MG TABLETS (FP) PO SCH ×2 (08:31→17:31)
[2021-09-08] MEDS: PANTOPRAZOLE 40 MG TABLET PO SCH (09:57)
[2021-09-08] MEDS: oxyCODONE HCL 5 MG TABLET PO PRN ×3 (09:58→21:36)
[2021-09-08] MEDS: COLLAGENASE CLOSTRIDIUM HIST. 30 GRAMS TUBE TP SCH (10:04)
[2021-09-09] MEDS: LEVOTHYROXINE NA 75 MCG TABLET (FP) PO SCH (06:00)
[2021-09-09] MEDS: oxyCODONE HCL 5 MG TABLET PO PRN ×2 (06:05→13:14)
[2021-09-09] MEDS: ACETAMINOPHEN 325 MG TABLET (FP) PO PRN ×2 (08:55→16:26)
[2021-09-09] MEDS: AMOX TR/POT CLAV 875MG/125MG TABLETS (FP) PO SCH (08:55)
[2021-09-09] MEDS: CALCIUM ACETATE 667 MG CAPSULE (FP) PO SCH ×2 (08:55→13:13)
[2021-09-09] MEDS: COLLAGENASE CLOSTRIDIUM HIST. 30 GRAMS TUBE TP SCH (10:00)
[2021-09-09] MEDS: PANTOPRAZOLE 40 MG TABLET PO SCH (10:30)
[2021-09-09 14:05] VITALS: BP 133/79; PULSE 76; TEMP 98.1
== END 2021-09-09 17:30 | DRG 710 ==
LOC: JER 11:59 → JERBED 12:18 → J5S 08-23 12:12
PROVIDERS: ADMIT Internal Medicine; ATTEND Internal Medicine
PROC: 0JBP0ZZ Excision of Left Lower Leg Subcutaneous Tissue and Fascia, Open Approach (ICD-10-PCS; principal; 2021-08-27 14:00)
PROC: 0DB98ZX Excision of Duodenum, Via Natural or Artificial Opening Endoscopic, Diagnostic (ICD-10-PCS; 2021-09-03)
PROC: 0DB78ZX Excision of Stomach, Pylorus, Via Natural or Artificial Opening Endoscopic, Diagnostic (ICD-10-PCS; 2021-09-03)
PROC: 0Y9J0ZZ Drainage of Left Lower Leg, Open Approach (ICD-10-PCS; 2021-09-06)
PROC: 2W1MX6Z Compression of Left Lower Extremity using Pressure Dressing (ICD-10-PCS; 2021-09-06)
PROC: 0KNT0ZZ Release Left Lower Leg Muscle, Open Approach (ICD-10-PCS; 2021-09-06)
DX: A41.89 Other specified sepsis (principal); L03.116 Cellulitis of left lower limb; R56.9 Unspecified convulsions; J44.9 Chronic obstructive pulmonary disease, unspecified; I10 Essential (primary) hypertension; K21.9 Gastro-esophageal reflux disease without esophagitis; D64.9 Anemia, unspecified; D69.6 Thrombocytopenia, unspecified; F25.9 Schizoaffective disorder, unspecified; F19.94 Other psychoactive substance use, unspecified with psychoactive substance-induced mood disorder; E11.9 Type 2 diabetes mellitus without complications; B19.20 Unspecified viral hepatitis C without hepatic coma; K80.20 Calculus of gallbladder without cholecystitis without obstruction; D72.829 Elevated white blood cell count, unspecified; N17.9 Acute kidney failure, unspecified; Z20.822 Contact with and (suspected) exposure to COVID-19; K59.00 Constipation, unspecified; K64.9 Unspecified hemorrhoids; K29.61 Other gastritis with bleeding; M10.9 Gout, unspecified; N40.0 Benign prostatic hyperplasia without lower urinary tract symptoms; R94.5 Abnormal results of liver function studies; K86.2 Cyst of pancreas; K74.60 Unspecified cirrhosis of liver; K82.8 Other specified diseases of gallbladder; E66.9 Obesity, unspecified; Z68.33 Body mass index [BMI] 33.0-33.9, adult; M79.A22 Nontraumatic compartment syndrome of left lower extremity
CPT/HCPCS: 36415; 71045-TC-FY; 73590-TC-LT-FY; 73610-TC-LT-FY; 73700-TC-RT; 74177-TC; 74181-TC; 76700-TC; 78226-TC; 80048; 80053; 80076; 80307; 81003; 82105; 82272; 82550; 82962; 83540; 83550; 83605; 84100; 84484; 84550; 85025; 85027; 85610; 85651; 85730; 86140; 86850; 86900; 86901; 87040; 87070; 87086; 87205; 87324; 87389; 87449; 87522; 87902; 88304-TC; 88305-TC; 93005; 93010; 93971-TC; 94760; 97162-GP; 99285-25; A9537; C9803; G0480; J0131; J1644; U0003; U0005

== ENCOUNTER 2022-06-21 14:27 | Inpatient (IN) | payer OTHER ==
[2022-06-21] MEDS ORDERED: ACETAMINOPHEN 500 MG TABLET (FP) PO ONE (17:15)
[2022-06-21] MEDS ORDERED: PIPERACILLIN/TAZOB 4.5 GM 4.5 GM in DEXTROSE 5%-WATER 100 ML IVPB ONE (17:19)
[2022-06-21] MEDS ORDERED: VANCOMYCIN 1 GM in D5W (PRE-DOCKED) 1,000 MG/250 ML IVPB ONE (17:19)
[2022-06-21] MEDS ORDERED: PIPERACILLIN/TAZOB 4.5 GM 4.5 GM/100 ML BAG IVPB ONE (18:38)
[2022-06-21] MEDS ORDERED: ACETAMINOPHEN 500 MG TABLET (FP) ONE (18:49)
[2022-06-21 19:45] LABS: CHLORIDE 105 mmol/L (98-107); SODIUM 139 mmol/L (136-145)
[2022-06-21 19:46] LABS: CALCIUM 9.4 mg/dL (8.5-10.1)
[2022-06-21 19:48] LABS: ALBUMIN 2.9 g/dl (3.4-5.0); ANION GAP 6 MMOL/L (8-16); CO2 28 mmol/L (21-32); GLUCOSE,RANDOM 86 mg/dL (74-106)
[2022-06-21 19:51] LABS: BLOOD UREA NITROGEN 29.9 mg/dL (7-18); CREATININE 1.5 mg/dL (0.55-1.3); SGOT/AST 216 U/L (15-37); SGPT/ALT 156 U/L (13-61)
[2022-06-21 19:52] LABS: TOT PROT 8.1 g/dl (6.4-8.2)
[2022-06-21 19:53] LABS: BILIRUBIN,TOTAL 0.9 mg/dL (0.2-1)
[2022-06-21 19:54] LABS: ALK PHOS 142 U/L (45-117)
[2022-06-21 20:06] LABS: BASO % 0.9 % (0-2.0); EOS % 12.3 % (0-4.5); HEMATOCRIT 33.3 % (35.4-49); HEMOGLOBIN 11.3 GM/dL (11.7-16.9); LYMPH % 34.3 % (8-40); MCH 31.9 pg (25.7-33.7); MCHC 33.8 g/dl (32.0-35.9); MEAN CELL VOLUME 94.2 fl (80-96); MEAN PLT VOLUME 11.8 fl (7.5-11.1); MONO % 10.4 % (3.8-10.2); NEUT % 42.1 % (42.8-82.8); PLATELET COUNT 62 10^3/uL (134-434); RBC 3.53 M/mm3 (4.00-5.60); RDW 16.1 % (11.9-15.9); WHITE BLOOD COUNT 6.2 K/mm3 (4.0-10.0)
[2022-06-21 20:35] LABS: PLATELET ESTIMATE DECREASED
[2022-06-21] MEDS ORDERED: VANCOMYCIN/WATER FOR INJ (PEG) 1,000 MG/200 ML BAG IVPB ONE (21:08)
[2022-06-22] MEDS: INSULIN SLIDING SCALE (NOVOLOG) 1 VIAL SQ SCH ×4 (07:21→22:33)
[2022-06-22 08:36] VITALS: BMI 34.0
[2022-06-22] MEDS ORDERED: MELATONIN 5 MG TABLETS PO PRN (10:03)
[2022-06-22] MEDS ORDERED: POLYETHYLENE GLYCOL (HEALTHYLAX) 3350 17 GM PACKET PO SCH (10:15)
[2022-06-22 10:38] LABS: INR 1.13 (0.83-1.09)
[2022-06-22 10:40] LABS: BASO % 0.7 % (0-2.0); EOS % 16.5 % (0-4.5); HEMATOCRIT 38.6 % (35.4-49); HEMOGLOBIN 12.9 GM/dL (11.7-16.9); LYMPH % 22.5 % (8-40); MCH 32.1 pg (25.7-33.7); MCHC 33.5 g/dl (32.0-35.9); MEAN CELL VOLUME 95.7 fl (80-96); MONO % 7.3 % (3.8-10.2); PLATELET COUNT 75 10^3/uL (134-434); RBC 4.04 M/mm3 (4.00-5.60); RDW 16.1 % (11.9-15.9); WHITE BLOOD COUNT 6.2 K/mm3 (4.0-10.0)
[2022-06-22 10:41] LABS: ACTIVATED PTT 37.2 SECONDS (25.2-36.5)
[2022-06-22] MEDS ORDERED: SODIUM ZIRCONIUM CYCLOSILICATE (LOKELMA) 5 GM PACKET PO SCH (10:45)
[2022-06-22] MEDS ORDERED: FAMOTIDINE 20 MG TABLET PO SCH (11:00)
[2022-06-22] MEDS ORDERED: PIPERACILLIN/TAZOB 3.375 GM 3.375 GM in DEXTROSE 5%-WATER - 50 ML IVPB SCH ×2 (11:00→18:00)
[2022-06-22] MEDS ORDERED: VANCOMYCIN PREMIX 1.5 GM 1,500 MG/300 ML BAG IVPB SCH ×2 (11:00→22:00)
[2022-06-22] MEDS ORDERED: SODIUM CHLORIDE NASAL SPRAY 44 ML BOTTLE NS PRN (11:00)
[2022-06-22 11:01] LABS: ALBUMIN 3.2 g/dl (3.4-5.0); BLOOD UREA NITROGEN 24.2 mg/dL (7-18); MAGNESIUM 1.9 mg/dL (1.8-2.4)
[2022-06-22 11:04] LABS: CREATININE 1.3 mg/dL (0.55-1.3)
[2022-06-22 11:05] LABS: BILIRUBIN,TOTAL 1.7 mg/dL (0.2-1)
[2022-06-22] MEDS ORDERED: traMADol HCL 50 MG TABLET PO PRN (11:06)
[2022-06-22] MEDS: CALCIUM ACETATE 667 MG CAPSULE (FP) PO SCH ×2 (12:21→17:01)
[2022-06-22 12:45] LABS: COCAINE, UR NEGATIVE (NEGATIVE); OPIATES, URI NEGATIVE (NEGATIVE)
[2022-06-22 12:46] LABS: METHADONE, UR NEGATIVE (NEGATIVE); URINE BARBITURATES NEGATIVE (NEGATIVE)
[2022-06-22 12:47] LABS: PHENCYCLIDINE,URINE NEGATIVE (NEGATIVE); URINE BENZODIAZEPINES NEGATIVE (NEGATIVE)
[2022-06-22 12:53] LABS: URINE AMPHETAMINES NEGATIVE (NEGATIVE)
[2022-06-22] MEDS ORDERED: HEPARIN NA (PORCINE) 5,000 UNITS/ML 1ML VIAL SQ SCH ×2 (14:00→22:00)
[2022-06-22 14:15] VITALS: RESP 18
[2022-06-22] MEDS: PIPERACILLIN/TAZOB 3.375 GM 3.375 GM in DEXTROSE 5%-WATER - 50 ML IVPB SCH (17:01)
[2022-06-23] MEDS: PIPERACILLIN/TAZOB 3.375 GM 3.375 GM in DEXTROSE 5%-WATER - 50 ML IVPB SCH (01:25)
[2022-06-23] MEDS: INSULIN SLIDING SCALE (NOVOLOG) 1 VIAL SQ SCH (06:15)
[2022-06-23 06:45] VITALS: BP 116/111; PULSE 89; TEMP 99.2
[2022-06-23] MEDS ORDERED: LEVOTHYROXINE NA 75 MCG TABLET (FP) PO SCH (07:00)
[2022-06-23] MEDS: CALCIUM ACETATE 667 MG CAPSULE (FP) PO SCH (08:48)
== END 2022-06-23 09:25 | disposition left against medical advice (07) | DRG 383 ==
LOC: JER 14:27 → JERBED 21:36 → J5S 06-22 04:10
PROVIDERS: ADMIT Internal Medicine; ATTEND Internal Medicine
DX: L03.116 Cellulitis of left lower limb (principal); E03.9 Hypothyroidism, unspecified; F19.10 Other psychoactive substance abuse, uncomplicated; F31.9 Bipolar disorder, unspecified; K21.9 Gastro-esophageal reflux disease without esophagitis; N40.0 Benign prostatic hyperplasia without lower urinary tract symptoms; K73.8 Other chronic hepatitis, not elsewhere classified; D69.6 Thrombocytopenia, unspecified; F25.0 Schizoaffective disorder, bipolar type; N17.9 Acute kidney failure, unspecified; K59.00 Constipation, unspecified; I11.9 Hypertensive heart disease without heart failure; I12.9 Hypertensive chronic kidney disease with stage 1 through stage 4 chronic kidney disease, or unspecified chronic kidney disease; E11.22 Type 2 diabetes mellitus with diabetic chronic kidney disease; N18.9 Chronic kidney disease, unspecified; F41.8 Other specified anxiety disorders
CPT/HCPCS: 36415; 73590-TC-LT-FY; 73610-TC-LT-FY; 73630-TC-LT; 80053; 80307; 82962; 83735; 84100; 84443; 85025; 85610; 85730; 86140; 86850; 86900; 86901; 93005; 93010; 93971-TC; 99285-25; C9803-CS; J1644; U0003; U0005

== ENCOUNTER 2022-07-07 10:42 | Inpatient (IN) | payer OTHER ==
[2022-07-07 10:58] VITALS: BMI 34.5
[2022-07-07 13:39] LABS: EOS % 8.7 % (0-4.5); HEMATOCRIT 35.4 % (35.4-49); HEMOGLOBIN 11.7 GM/dL (11.7-16.9); LYMPH % 39.7 % (8-40); MCH 31.8 pg (25.7-33.7); MCHC 32.9 g/dl (32.0-35.9); MEAN CELL VOLUME 96.4 fl (80-96); MEAN PLT VOLUME 10.7 fl (7.5-11.1); MONO % 9.7 % (3.8-10.2); NEUT % 40.9 % (42.8-82.8); PLATELET COUNT 80 10^3/uL (134-434); RBC 3.67 M/mm3 (4.00-5.60); RDW 16.1 % (11.9-15.9); WHITE BLOOD COUNT 5.5 K/mm3 (4.0-10.0)
[2022-07-07 13:58] LABS: CHLORIDE 106 mmol/L (98-107); SODIUM 140 mmol/L (136-145)
[2022-07-07 14:00] LABS: ANION GAP 9 MMOL/L (8-16); BLOOD UREA NITROGEN 30.5 mg/dL (7-18); CALCIUM 9.1 mg/dL (8.5-10.1); CO2 26 mmol/L (21-32); GLUCOSE,RANDOM 93 mg/dL (74-106)
[2022-07-07 14:03] LABS: CREATININE 1.9 mg/dL (0.55-1.3)
[2022-07-07 14:04] LABS: SGOT/AST 196 U/L (15-37); SGPT/ALT 148 U/L (13-61)
[2022-07-07 14:05] LABS: BILIRUBIN,TOTAL 0.9 mg/dL (0.2-1); TOT PROT 7.7 g/dl (6.4-8.2)
[2022-07-07 14:06] LABS: ALK PHOS 114 U/L (45-117)
[2022-07-07 14:29] LABS: URINE APPEARANCE CLEAR; URINE BILIRUBIN NEGATIVE (NEGATIVE); URINE COLOR YELLOW; URINE GLUCOSE (UA) NEGATIVE (NEGATIVE); URINE KETONE NEGATIVE (NEGATIVE); URINE LEUK ESTERASE NEGATIVE (NEGATIVE); URINE NITRITE NEGATIVE (NEGATIVE); URINE PROTEIN NEGATIVE (NEGATIVE); URINE UROBILINOGEN 0.2 mg/dL (0.2-1.0)
[2022-07-07 14:39] LABS: OPIATES, URI NEGATIVE (NEGATIVE); PHENCYCLIDINE,URINE NEGATIVE (NEGATIVE)
[2022-07-07 14:40] LABS: COCAINE, UR NEGATIVE (NEGATIVE); METHADONE, UR NEGATIVE (NEGATIVE); URINE AMPHETAMINES NEGATIVE (NEGATIVE); URINE BARBITURATES NEGATIVE (NEGATIVE); URINE BENZODIAZEPINES NEGATIVE (NEGATIVE)
[2022-07-07] MEDS ORDERED: HALOPERIDOL LACTATE 5 MG/ML IM ONE ×2 (14:48→14:53)
[2022-07-07] MEDS ORDERED: SODIUM CHLORIDE 0.9% 500 ML INFUS.BAG IV ONE (15:56)
[2022-07-08 03:04] VITALS: RESP 20; TEMP 97.4
[2022-07-08 06:21] VITALS: BP 99/63; PULSE 65
[2022-07-08 07:04] LABS: BASO % 0.7 % (0-2.0); EOS % 6.6 % (0-4.5); HEMATOCRIT 35.9 % (35.4-49); HEMOGLOBIN 11.9 GM/dL (11.7-16.9); LYMPH % 36.6 % (8-40); MCH 32.3 pg (25.7-33.7); MCHC 33.3 g/dl (32.0-35.9); MEAN CELL VOLUME 96.9 fl (80-96); MEAN PLT VOLUME 10.6 fl (7.5-11.1); MONO % 6.1 % (3.8-10.2); PLATELET COUNT 88 10^3/uL (134-434); RDW 16.2 % (11.9-15.9); WHITE BLOOD COUNT 6.5 K/mm3 (4.0-10.0)
[2022-07-08 07:19] LABS: ALBUMIN 2.8 g/dl (3.4-5.0); BLOOD UREA NITROGEN 23.9 mg/dL (7-18); CALCIUM 8.7 mg/dL (8.5-10.1)
[2022-07-08 07:21] LABS: MAGNESIUM 1.6 mg/dL (1.8-2.4)
[2022-07-08 07:22] LABS: CREATININE 1.9 mg/dL (0.55-1.3); PHOSPHOROUS 3.3 mg/dL (2.5-4.9)
[2022-07-08 07:23] LABS: TOT PROT 7.6 g/dl (6.4-8.2)
[2022-07-08 07:24] LABS: BILIRUBIN,TOTAL 1.1 mg/dL (0.2-1)
[2022-07-08 07:27] LABS: INR 1.21 (0.83-1.09)
[2022-07-08 07:30] LABS: ACTIVATED PTT 36.9 SECONDS (25.2-36.5)
[2022-07-08] MEDS ORDERED: OLANZapine 2.5 MG TABLET PO ONE (08:44)
[2022-07-08] MEDS ORDERED: HALOPERIDOL LACTATE 5 MG/ML IM PRN (09:03)
[2022-07-08] MEDS ORDERED: QUEtiapine FUMARATE 50 MG TABLET PO SCH (09:15)
[2022-07-08] MEDS ORDERED: QUEtiapine FUMARATE 100 MG TABLET (FP) ONE (09:30)
[2022-07-08] MEDS ORDERED: OLANZapine 10 MG TABLET ONE (09:30)
[2022-07-08] MEDS ORDERED: CALCIUM 500MG/VIT-D 200 UNITS COMBO TABLET (FP) PO SCH (10:00)
[2022-07-08] MEDS ORDERED: PATIENT'S OWN MEDICATION (NON-FORMULARY) (Sodium Zirconium Cyclosilicate 10 GM Packet) PO SCH (10:00)
[2022-07-08] MEDS ORDERED: amLODIPine BESYLATE 10 MG TABLET (FP) PO SCH (10:00)
[2022-07-08] MEDS ORDERED: CALCIUM ACETATE 667 MG CAPSULE (FP) PO SCH (12:00)
== END 2022-07-08 15:15 | DRG 756 ==
LOC: JER 10:42 → JERBED 18:11 → OBSVTOIN 20:22
PROVIDERS: ADMIT Internal Medicine; ATTEND Internal Medicine
DX: R45.851 Suicidal ideations (principal); I10 Essential (primary) hypertension; N17.9 Acute kidney failure, unspecified; E03.9 Hypothyroidism, unspecified; F20.9 Schizophrenia, unspecified; F31.9 Bipolar disorder, unspecified; K21.9 Gastro-esophageal reflux disease without esophagitis; N40.0 Benign prostatic hyperplasia without lower urinary tract symptoms; K73.8 Other chronic hepatitis, not elsewhere classified; R45.1 Restlessness and agitation; F10.20 Alcohol dependence, uncomplicated; F11.10 Opioid abuse, uncomplicated
CPT/HCPCS: 0241U-QW; 36415; 80053; 80307; 81003; 83735; 84100; 84443; 85025; 85610; 85730; 87086; 93005; 93010; 99285-25; G0378